=== PATIENT | female | born 1990 | race African-American/Black ===

== ENCOUNTER 2016-11-29 22:31 | Inpatient (IN) | payer MEDICAID ==
[2016-11-29 23:24] LABS: APPEARANCE,URINE SLIGHTLY-CLOUDY; BILIRUBIN,URINE NEGATIVE (NEGATIVE); GLUCOSE, URINE NEGATIVE (NEGATIVE); KETONES,URINE TRACE mg/dL (NEGATIVE); LEUKOCYTE ESTERASE,URINE NEGATIVE (NEGATIVE); NITRITE,URINE NEGATIVE (NEGATIVE); PROTEIN,URINE 30 mg/dL (NEGATIVE); URINE SPECIFIC GRAVITY 1.031
[2016-11-29 23:29] LABS: ABSOLUTE LYMPHOCYTES (AUTO) 1.9 10^3/uL (0.5-4.7); ABSOLUTE MONOCYTES (AUTO) 0.9 10^3/uL (0.1-1.4); ABSOLUTE NEUT (AUTO) 5.1 10^3/uL (1.7-8.2); BASOPHILS % (AUTO) 0.4 % (0-2); EOSINOPHILS % (AUTO) 0.5 % (0-6); HEMATOCRIT 33.3 % (36.0-47.0); HEMOGLOBIN 11.1 g/dL (12.0-15.5); MEAN CORPUSCULAR HEMOGLOBIN 26.7 pg (27.0-33.4); MEAN CORPUSCULAR HGB CONC 33.4 g/dL (32.0-36.0); MEAN CORPUSCULAR VOLUME 80 fl (80-97); MONOCYTES % (AUTO) 11.2 % (3-13); RED BLOOD COUNT 4.17 10^6/uL (3.72-5.28); RED CELL DISTRIBUTION WIDTH 15.8 % (11.5-14.0); SEGMENTED NEUTROPHILS % (AUTO) 63.9 % (42-78); WHITE BLOOD COUNT 8.1 10^3/uL (4.0-10.5)
[2016-11-29 23:49] LABS: URINE BARBITURATES SCREEN NEGATIVE; URINE METHADONE SCREEN NEGATIVE; URINE PHENCYCLIDINE SCREEN NEGATIVE
[2016-11-29] MEDS ORDERED: DINOPROSTONE 10 MG VAGINAL INSERT.SR ONE (23:58)
--- NOTE | 2016-11-30 04:46 | L&D General Admission ---
General Admit Datetime Report Generated by CPN: 11/30/2016 04:45 INFORMATION Patient Age: 26 (06/28/2016 18:07:QS system process) EDC: 12/04/2016 00:00 (11/17/2016 13:01:Sandrine Gale RN) : 8 (11/17/2016 13:01:Iraida Sarabia RN) Para: 2 (11/17/2016 13:01:Sandrine Gale RN) Term: 2 (11/17/2016 13:01:Iraida Sarabia RN) : 0 (11/17/2016 13:01:Iraida Sarabia RN) Spontaneous Abortions: 3 (11/17/2016 13:01:Iraida Sarabia RN) Induced Abortions: 2 (11/17/2016 13:01:Iraida Sarabia RN) Livin (11/17/2016 13:01:Iraida Sarabia RN) Cesareans: 0 (11/17/2016 13:01:Iraida Sarabia RN) VBACs: 0 (11/17/2016 13:01:Iraida Sarabia RN) Ectopic: 0 (11/17/2016 13:01:Iraida Sarabia RN) Multiple Births: 0 (11/17/2016 13:01:Iraida Sarabia RN) Baby, Number in Womb: 1 (11/17/2016 16:12:Sandrine Gale RN) CARE Primary Dehairing Machine Tender: [facility] (11/17/2016 13:01:Sandrine Gale RN) Adequate Care: No (11/17/2016 13:01:Iraida aSrabia RN) Prepregnancy Weight (lb): 132 (11/17/2016 13:01:Iraida Sarabia RN) Prepregnancy Weight (kg): 60.0 (11/17/2016 13:01:QS system process) Height (in): 60 (06/28/2016 18:07:QS system process) ALLERGIES Medication Allergy: No (11/17/2016 13:01:Sandrine Gale RN) Medication Allergies: No Known Allergies (11/17/2016) (11/17/2016 16:18:QS system process) Medication Allergies: No Known Allergies (01/05/2014) (06/28/2016 18:07:QS system process) Latex Allergy: No Latex Allergies (11/17/2016 13:01:Sandrine Gale RN) Food Allergies: n/a (11/17/2016 13:01:Sandrine Gale RN) Environmental Allergies: n/a (11/17/2016 13:01:Sandrine Gale RN) COMMUNICATION Primary Language: Indonesian (11/17/2016 13:01:Sandrine Gale RN) Medical Tx Preferred Language: Indonesian (11/17/2016 13:01:Sandrine Gale RN) Communication Barrier(s): None (11/17/2016 13:01:Iraida Sarabia RN) DEMOGRAPHICS Address: [address], [address] [address] (07/12/2016 12:07:QS system process) Address: [address] [place] [address] (06/28/2016 18:07:QS system process) Zipcode: [address] (06/28/2016 18:07:QS system process) Home (07/12/2016 12:07:QS system process) Home (06/28/2016 18:07:QS system process) Work (07/12/2016 12:07:QS system process) SSN: [id number] (06/28/2016 18:07:QS system process) Next of Kin Name: VANESSA CONNOR (07/12/2016 12:07:QS system process) Next of Kin Name: VANESSA NG (06/28/2016 18:07:QS system process) Next of Kin (06/28/2016 18:07:QS system process) Next of Kin Relationship: OR (06/28/2016 18:07:QS system process) Date of : 1990 (06/28/2016 18:07:QS system process) Marital Status: Single (06/28/2016 18:07:QS system process) Sex: Female (06/28/2016 18:07:QS system process) Race: (06/28/2016 18:07:QS system process) Ethnicity: Non- or (06/28/2016 18:07:QS system process) Yazdanism: None (06/28/2016 18:07:QS system process) FOB Involved: Yes (11/17/2016 13:01:Dolly Horta RN) DRUG AND ALCOHOL USE Alcohol: No (11/17/2016 13:01:Sandrine Gale RN) Cigarettes: Never Smoker. [id number] (11/17/2016 13:01:Sandrine Gale RN) Marijuana: No (11/17/2016 13:01:Sandrine Gale RN) Cocaine: No (11/17/2016 13:01:Sandrine Gale RN) Other Illicit Drugs: No (11/17/2016 13:01:Sandrine Gale RN) Customer Care Specialist: [facility] (11/17/2016 13:01:Sandrine Gale RN) Feeding Preference: Both (11/17/2016 13:01:Sandrine Gale RN) Benefit of Breast Feed Discussed: Yes (11/17/2016 13:01:Sandrine Gale RN) Circumcision: Yes (11/17/2016 13:01:Sandrine Gale RN) Classes Attended: No (11/17/2016 13:01:Sandrine Gale RN) Tubal Ligation: No (11/17/2016 13:01:Sandrine Gale RN) Tubal Authorization Signed: N/A (11/17/2016 13:01:Sandrine Gale RN) Consent: N/A (11/17/2016 13:01:Sandrine Gale RN) Consent Signed: N/A (11/17/2016 13:01:Sandrine Gale RN) Pain Management Plans: Epidural (11/17/2016 13:01:Sandrine Gale RN) Plans for Labor and Delivery: None (11/17/2016 13:01:Sandrine Gale RN) Support Person: Vanessa Connor (11/17/2016 13:01:Sandrine Gale RN) Support Person Relationship: Friend (11/17/2016 13:01:Sandrine Gale RN) Cultural/Spritual Practice: No (11/17/2016 13:01:Sandrine Gale RN) Spir/Cult Dietary Needs: No (11/17/2016 13:01:Sandrine Gale RN) LIVING SITUATION/DISCHARGE PLAN Living Arrangements: Apartment (11/17/2016 13:01:Sandrine Gale RN) Adequate Access to:: Electric; Heat; Refrigeration; Plumbing/Running water; Phone; Transportation (11/17/2016 13:01:Sandrine Gale RN) WIC Program: Needs referral (11/17/2016 13:01:Sandrine Gale RN) Currently Using Commun Resources: Katheryn (11/17/2016 13:01:Sandrine Gale RN) Outside Agency/Material Damage Appraiser: Katheryn (11/17/2016 13:01:Sandrine Gale RN) Car Seat for Discharge: Katheryn (11/17/2016 13:01:Sandrine Gale RN) Adoption Requested: Katheryn (11/17/2016 13:01:Sandirne Gale RN) Pt Contact w/ Post : N/A (11/17/2016 13:01:Sandrine Gale RN) LABS Blood Type: A Positive (11/17/2016 13:01:Iraida Sarabia RN) Antibody Screen: Negative (11/17/2016 13:01:Iraida Sarabia RN) Rho(G) this : Not Applicable (11/17/2016 13:01:Iraida Sarabia RN) Hemoglobin: 11.1 L (11/29/2016 23:10:QS system process) Hemoglobin: 11.0 L (06/28/2016 18:55:QS system process) Hematocrit: 33.3 L (11/29/2016 23:10:QS system process) Hematocrit: 33.9 L (06/28/2016 18:55:QS system process) MCV: 80 (11/29/2016 23:10:QS system process) MCV: 89 (06/28/2016 18:55:QS system process) Group Beta Strep: Negative (11/17/2016 13:01:Iraida Sarabia RN) Gonorrhea: Negative (11/17/2016 13:01:Iraida Sarabia RN) Chlamydia: Negative (11/17/2016 13:01:Iraida Sarabia RN) RPR/VDRL: Nonreactive (11/17/2016 13:01:Iraida Sarabia RN) HIV Results: Negative (11/17/2016 13:01:Iraida Sarabia RN) Hepatitis B: Negative (11/17/2016 13:01:Iraida Sarabia RN) Rubella: Immune (11/17/2016 13:01:Iraida Sarabia RN) OB/PREVIOUS HISTORY Previous Procedures: Ultrasound; NST (11/17/2016 13:01:Sandrine Gale RN) Current Procedures: Ultrasound; NST (11/17/2016 13:01:Sandrine Gale RN) History of Previous : No (11/17/2016 13:01:Sandrine Gale RN) History of Gestational Diabetes: No (11/17/2016 13:01:Sandrine Gale RN) History of PIH: No (11/17/2016 13:01:Sandrine Gale RN) History of Incompetent Cervix: No (11/17/2016 13:01:Sandrine Gale RN) History of Placenta Previa/Abrup: No (11/17/2016 13:01:Sandrine Gale RN) History of Macrosomia: No (11/17/2016 13:01:Sandrine Gale RN) History of IUGR: No (11/17/2016 13:01:Sandrine Gale RN) History of Hemorrhage: No (11/17/2016 13:01:Sandrine Gale RN) History of Loss/Stillborn: No (11/17/2016 13:01:Sandrine Gale RN) History of : No (11/17/2016 13:01:Sandrine Gale RN) History of D (Rh) Sensitization: No (11/17/2016 13:01:Sandrine Gale RN) History Recurrent Loss/Stillborn: No (11/17/2016 13:01:Sandrine Gale RN) History Depression/PP Depression: No (11/17/2016 13:01:Sandrine Gale RN) History of Uterine Anomaly/BOSTON: No (11/17/2016 13:01:Sandrine Gale RN) History of Infertility: No (11/17/2016 13:01:Sandrine Gale RN) History of ART Treatment: No (11/17/2016 13:01:Sandrine Gale RN) History of BOSTON: No (11/17/2016 13:01:Sandrine Gale RN) Comments Obstetrical History: G1-EAB in 2002 G2-EAB in 2003 G3- in 2005 female @ 39wks 7lbs 13 oz G4-SAB in 2007 G5-SAB in 2009 G6-SAB in 2009 G7- in 2013 male @ 38wks 7lbs 11 oz G8-Current (11/17/2016 13:01:Iraida Sarabia RN) MEDICAL HISTORY Med Hx Diabetes: Yes (11/17/2016 13:01:Iraida Sarabia RN) Diabetes Type: Gestational Diabetes (11/17/2016 13:01:Iraida Sarabia RN) Med Hx Hypertension: No (11/17/2016 13:01:Sandrine Gale RN) Med Hx Heart Disease: No (11/17/2016 13:01:Sandrine Gale RN) Med Hx Autoimmune Disorder: No (11/17/2016 13:01:Sandrine Gale RN) Med Hx Kidney Disease/UTI: No (11/17/2016 13:01:Sandrine Gale RN) Med Hx Neurologic/Epilepsy: No (11/17/2016 13:01:Sandrine Gale RN) Med Hx Psychiatric Disorders: No (11/17/2016 13:01:Sandrine Gale RN) Med Hx Hepatitis/Liver Disease: No (11/17/2016 13:01:Sandrine Gale RN) Med Hx Varicosities/Phlebitis: No (11/17/2016 13:01:Sandrine Gale RN) Med Hx Thyroid Dysfunction: No (11/17/2016 13:01:Sandrine Gale RN) Med Hx Trauma/Violence: No (11/17/2016 13:01:Sandrine Gale RN) Med Hx Blood Transfusion: No (11/17/2016 13:01:Sandrine Gale RN) Med Hx Pulmonary (Asthma,TB): No (11/17/2016 13:01:Sandrine Gale RN) Med Hx Breast: No (11/17/2016 13:01:Sandrine Gale RN) Med Hx BIOMETRICS HEAD Surgery: No (11/17/2016 13:01:Sandrine Gale RN) Med Hx Hospitalization/Surgery: Yes (11/17/2016 13:01:Sandrine Gale RN) Med Hx Anesthetic Complications: No (11/17/2016 13:01:Sandrine Gale RN) Med Hx Abnormal Pap Smear: No (11/17/2016 13:01:Sandrine Gale RN) Other Medical Diseases: No (11/17/2016 13:01:Sandrine Gale RN) Med Hx Significant Family Hx: No (11/17/2016 13:01:Sandrine Gale RN) Details of Med/Surg Hx: Childbirth, GDM (11/17/2016 13:01:Iraida Sarabia RN) INFECTIOUS HISTORY Inf Hx Gonorrhea: No (11/17/2016 13:01:Sandrine Gale RN) Inf Hx Chlamydia: Yes (11/17/2016 13:01:Sandrine Gale RN) Inf Hx Syphilis: No (11/17/2016 13:01:Sandrine Gale RN) Inf Hx HIV/AIDS: No (11/17/2016 13:01:Sandrine Gale RN) Inf Hx Human Papilloma Virus: No (11/17/2016 13:01:Sandrine Gale RN) Inf Hx Pt/Partner Genital Herpes: No (11/17/2016 13:01:Sandrine Gale RN) Inf Hx Tuberculosis/Exposure: No (11/17/2016 13:01:Sandrine Gale RN) Inf Hx Hepatitis B,C: No (11/17/2016 13:01:Sandrine Gale RN) Inf Hx Rash or Viral Illness: No (11/17/2016 13:01:Sandrine Gale RN) Details of Infectious Hx: chlamydia 2004 (11/17/2016 13:01:Sandrine Gale RN) GENETIC HISTORY Gen Hx Age >=35 at HERMILA: No (11/17/2016 13:01:Sandrine Gale RN) Gen Hx Thalassemia: No (11/17/2016 13:01:Sandrine Gale RN) Gen Hx Congenital Heart Defect: No (11/17/2016 13:01:Sandrine Gale RN) Gen Hx Neural Tube Defect: No (11/17/2016 13:01:Sandrine Gale RN) Gen Hx Down's Syndrome: No (11/17/2016 13:01:Sandrine Gale RN) Gen Hx Darius-Sachs: No (11/17/2016 13:01:Sandrine Gale RN) Gen Hx Vidal: No (11/17/2016 13:01:Sandrine Gale RN) Gen Hx Familial Dysautonomia: No (11/17/2016 13:01:Sandrine Gale RN) Gen Hx Sickle Cell Disease/Trait: No (11/17/2016 13:01:Sandrine Gale RN) Gen Hx Hemophilia/Blood Disorder: No (11/17/2016 13:01:Sandrine Gale RN) Gen Hx Muscular Dystrophy: No (11/17/2016 13:01:Sandrine Gale RN) Gen Hx Cystic Fibrosis: No (11/17/2016 13:01:Sandrine Gale RN) Gen Hx Huntingtons Chorea: No (11/17/2016 13:01:Sandrine Gale RN) Gen Hx Mental Retardation/Autism: No (11/17/2016 13:01:Sandrine Gale RN) Gen Hx Tested for Fragile X: No (11/17/2016 13:01:Sandrine Gale RN) Gen Hx Other Inher/Chromosomal: No (11/17/2016 13:01:Sandrine Gale RN) Gen Hx Maternal Metabolic DO: No (11/17/2016 13:01:Sandrine Gale RN) Gen Hx Pt Father or FOB Defect: No (11/17/2016 13:01:Sandrine Gale RN) Gen Hx Other Genetic History: No (11/17/2016 13:01:Sandrine Gale RN) Gen Hx Drugs/Meds since LMP: No (11/17/2016 13:01:Sandrine Gale RN)
--- NOTE | 2016-11-30 04:46 | L&D Admission Assessment ---
LD ADM ASMT Datetime Report Generated by CPN: 11/30/2016 04:45 PATIENT ASSESSMENT Assessment Type: Admission Assessment (11/29/2016 23:11:Dolly Mendesmarseilles, RN) WEIGHT Weight (lb): 163 (11/29/2016 23:55:QS system process) Weight (kg): 74.1 (11/29/2016 23:55:QS system process) Total Wt Gain (lb): 31 (11/29/2016 23:55:QS system process) Wt Gain (kg): 14.0 (11/29/2016 23:55:QS system process) BMI: 31.8 (11/29/2016 23:55:QS system process) PAIN Pain Scale: 0 (11/29/2016 23:11:Dolly Ledgerwood, RN) Pain Presence: None/Denies (11/29/2016 23:11:Dolly Ledgerwood, RN) Pain Type: N/A (11/29/2016 23:11:Dolly Ledgerwood, RN) CONTRACTIONS Frequency (min): 4.5-5.5 (11/30/2016 04:00:Dolly Ledgerwood, RN) Frequency (min): 4.5-5.5 (11/30/2016 03:30:Dolly Ledgerwood, RN) Frequency (min): irreg (11/30/2016 03:00:Dolly Jessicagerwood, RN) Frequency (min): irreg (11/30/2016 02:30:Dollytwila Lopezgerkarlos, RN) Frequency (min): x1 (11/30/2016 02:00:Dolly Ledgerwood, RN) Frequency (min): occas (11/30/2016 01:30:Dolly Ledgerwood, RN) Frequency (min): x1 (11/30/2016 01:00:Dolly Ledgerwood, RN) Frequency (min): occas (11/30/2016 00:30:Dolly Ledgerwood, RN) Frequency (min): occa (11/30/2016 00:00:Dolly Ledgerwood, RN) Frequency (min): x1 (11/29/2016 23:30:Dolly Ledgerwood, RN) Frequency (min): none (11/29/2016 23:00:Dolly Ledgerwood, RN) Duration (sec): 60-110 (11/30/2016 04:00:Dolly Ledgerwood, RN) Duration (sec): 60-100 (11/30/2016 03:30:Dolly Ledgerwood, RN) Duration (sec): 70-110 (11/30/2016 03:00:Dolly Ledgerwood, RN) Duration (sec): 80-130 (11/30/2016 02:30:Dolly Ledgerwood, RN) Duration (sec): 120 (11/30/2016 02:00:Dolly Ledgerwood, RN) Duration (sec): 80 (11/30/2016 01:30:Dolly Ledgerwood, RN) Duration (sec): 110 (11/30/2016 01:00:Dolly Ledgerwood, RN) Duration (sec): 70-80 (11/30/2016 00:30:Dolly Ledgerwood, RN) Duration (sec): 70-90 (11/30/2016 00:00:Dolly Ledgerwood, RN) Duration (sec): 100 (11/29/2016 23:30:Dolly Ledgerwood, RN) Quality: Mild (11/30/2016 04:00:Dolly Ledgerwood, RN) Quality: Mild (11/30/2016 03:30:Dolly Ledgerwood, RN) Quality: Mild (11/30/2016 03:00:Dolly Ledgerwood, RN) Quality: Mild (11/30/2016 02:30:Dolly Ledgerwood, RN) Quality: Mild (11/30/2016 02:00:Dolly Ledgerwood, RN) Quality: Mild (11/30/2016 01:30:Dolly Ledgerwood, RN) Quality: Mild (11/30/2016 01:00:Dolly Ledgerwood, RN) Quality: Mild (11/30/2016 00:30:Dolly Ledgerwood, RN) Quality: Mild (11/30/2016 00:00:Dolly Ledgerwood, RN) Quality: Mild (11/29/2016 23:30:Dolly Ledgerwood, RN) Pattern: Normal: <= 5 Contractions in 10 Minutes (11/30/2016 04:00:Dolly Ledgerwood, RN) Pattern: Normal: <= 5 Contractions in 10 Minutes (11/30/2016 03:30:Dolly Ledgerwood, RN) Pattern: Normal: <= 5 Contractions in 10 Minutes (11/30/2016 03:00:Dolly Ledgerwood, RN) Pattern: Normal: <= 5 Contractions in 10 Minutes (11/30/2016 02:30:Dolly Ledgerwood, RN) Pattern: Normal: <= 5 Contractions in 10 Minutes (11/30/2016 01:30:Dolly Ledgerwood, RN) Pattern: Normal: <= 5 Contractions in 10 Minutes (11/30/2016 00:30:Dolly Ledgerwood, RN) Pattern: Normal: <= 5 Contractions in 10 Minutes (11/30/2016 00:00:Dolly Ledgerwood, RN) Resting Tone [place]: Relaxed (11/30/2016 04:00:Dolly Ledgerwood, RN) Resting Tone [place]: Relaxed (11/30/2016 03:30:Dolly Ledgerwood, RN) Resting Tone [place]: Relaxed (11/30/2016 03:00:Dolly Ledgerwood, RN) Resting Tone [place]: Relaxed (11/30/2016 02:30:Dolly Ledgerwood, RN) Resting Tone [place]: Relaxed (11/30/2016 02:00:Dolly Ledgerwood, RN) Resting Tone [place]: Relaxed (11/30/2016 01:30:Dolly Ledgerwood, RN) Resting Tone [place]: Relaxed (11/30/2016 01:00:Dolly Ledgerwood, RN) Resting Tone [place]: Relaxed (11/30/2016 00:30:Dolly Ledgerwood, RN) Resting Tone [place]: Relaxed (11/30/2016 00:00:Dolly Horta RN) Resting Tone [place]: Non Relaxed (11/29/2016 23:30:Dolly Horta RN) Resting Tone [place]: Relaxed (11/29/2016 23:00:Dolly Horta RN) Contraction Comments: occasional contractions with uteral irritability. (11/30/2016 00:30:Dolly Horta RN) Contraction Comments: pt feels no contractions (11/29/2016 23:00:Dolly Horta RN) VAGINAL EXAM Dilatation (cm): 0.5 (11/30/2016 00:00:Dolly Horta RN) Effacement (%): 50 (11/30/2016 00:00:Dolly Horta RN) Station: -3 (11/30/2016 00:00:Dolly Horta RN) NEURO Level of Consciousness: Fully Conscious (11/29/2016 23:11:Dolly Horta RN) DTR's/Clonus: DTRs 2+; No Clonus (11/29/2016 23:11:Dolly Horta, KSENIA) Headache: Denies (11/29/2016 23:11:Dolly Horta RN) Dizziness: No (11/29/2016 23:11:Dolly Horta RN) Blurred Vision: No (11/29/2016 23:11:Dolly Horta, RN) Extremity Numbness/Tingling : None (11/29/2016 23:11:Dolly Horta RN) Extremity Movement: Full Range of Motion (11/29/2016 23:11:Dolly Horta, RN) CARDIOVASCULAR Nailbeds: [place] (11/29/2016 23:11:Dolly Horta RN) Capillary Refill: Less than 3 Seconds (11/29/2016 23:11:Dolly Horta, RN) Facial Edema: None (11/29/2016 23:11:Dolly Horta, RN) Navarro's Sign Left Leg: Negative (11/29/2016 23:11:Dolly Horta, RN) Navarro's Sign Right Leg: Negative (11/29/2016 23:11:Dolly Horta, RN) RESPIRATORY Respiratory Effort: Unlabored; Regular Rhythm; Equal Expansion (11/29/2016 23:11:Dolly Ledgerwood, RN) Breath Sounds, Left: Clear and Equal (11/29/2016 23:11:Dolly Ledgerwood, RN) Breath Sounds, Right: Clear and Equal (11/29/2016 23:11:Dolly Ledgerwood, RN) Cough Productivity: None (11/29/2016 23:11:Dolly Ledgerwood, RN) GASTROINTESTINAL Nausea/Vomiting: Denies (11/29/2016 23:11:Dolly Horta, KSENIA) Bowel Sounds: Normoactive; All Quadrants (11/29/2016 23:11:Dolly Horta, RN) RUQ Epigastric Pain: Denies (11/29/2016 23:11:Dolly Horta, RN) Bowel Patterns: Soft, Formed Stool (11/29/2016 23:11:Dolly Horta, RN) Hemorrhoids: None (11/29/2016 23:11:Dolly Horta, RN) Diet Type: Regular diet (11/29/2016 23:11:Dolly Hrota, RN) Last Meal: 11/29/2016 22:30 (11/29/2016 23:11:Dolly Ledgerwood, RN) GENITOURINARY Bladder: Nondistended (11/29/2016 23:11:Dolly Ledgerwood, RN) Frequency of Urination: No (11/29/2016 23:11:Dolly Ledgerwood, RN) Urination Burning: No (11/29/2016 23:11:Dolly Ledgerwood, RN) CVA Tenderness: No (11/29/2016 23:11:Dolly Ledgerwood, RN) Vaginal Bleeding: None (11/29/2016 23:11:Dolly Ledgermarseilles, RN) Vaginal Discharge Color: N/A (11/29/2016 23:11:Dolly Jessicagermarseilles, RN) INTEGUMENTARY Skin Color: Normal for Race (11/29/2016 23:11:Dolly Jessicagerwood, ) Skin Temperature: Warm (11/29/2016 23:11:Dolly Jessicagerwood, RN) Skin Moisture: Dry (11/29/2016 23:11:Dolly Ledgerwood, RN) KYLIE SKIN ASSESSMENT Kylie Scale Sensory Perception: No Impairment- Responds to verbal commands. Has no sensory deficit which would limit ability to feel or voice pain or discomfort (11/29/2016 23:11:Dolly Horta RN) Kylie Scale Moisture: Rarely Moist- Skin is usually dry. Linen only requires changing at routine intervals (11/29/2016 23:11:Dolly Horta RN) Kylie Scale Activity: Walks Frequently- Walks outside the room at least twice a day and inside room at least every 2 hours during the day. (11/29/2016 23:11:Dolly Horta RN) Kylie Scale Mobility: No Limitations- Makes major and frequent changes in position without assistance (11/29/2016 23:11:Dolly Horta RN) Kylie Scale Nutrition: Excellent- Eats most of every meal. Never refuses a meal. Usually eats a total of 4 or more servings of meat and dairy products. Occasionally eats between meals. Does not require supplementation (11/29/2016 23:11:Dolly Horta RN) Kylie Scale Friction and Shear: No Apparent Problem- Moves in bed and in chair independently and has sufficient muscle strength to lift up completely during move. Maintains good position in bed or chair at all times (11/29/2016 23:11:Dolly Horta RN) Kylie Scale Total: 23 (11/29/2016 23:11:QS system process) Kylie Scale Risk: No Risk of Pressure Ulcer Noted at this Time (11/29/2016 23:11:QS system process) SUPPORT Family Support: Family supportive (11/29/2016 23:11:Dolly Horta RN) Emotional State: Calm/Relaxed (11/29/2016 23:11:Dolly Horta RN) SAFETY Call [place] Within Reach: Yes (11/29/2016 23:11:Dolly Horta RN) Side Rails Up: Yes (11/29/2016 23:11:Dolly Horta RN) Bed Wheels Locked: Yes (11/29/2016 23:11:Dolly Horta RN) Arm Bands Present: Yes (11/29/2016 23:11:Dolly Horta RN) FALL SCREEN Fall Risk History of Falling: (0) No (11/29/2016 23:11:Dolly Horta RN) Fall Risk Secondary Diagnosis: (0) No (11/29/2016 23:11:Dolly Horta RN) Fall Risk Ambulatory Aid: (0) None/Bedrest/Wheelchair/Nurse Assist (11/29/2016 23:11:Dolly Horta RN) Fall Risk IV Therapy: (0) No (11/29/2016 23:11:Dolly Horta RN) Fall Risk Gait: (0) Normal/Bedrest/Immobile (11/29/2016 23:11:Dolly Horta RN) Fall Risk Mental Status: (0) Oriented to Own Ability (11/29/2016 23:11:Dolly Horta RN) Fall Risk Score: 0 (11/29/2016 23:11:QS system process) Fall Risk Score Definition: No Risk: No action required (11/29/2016 23:11:QS system process) RECENT TRAVEL/INFECTIOUS DISEASE Pt/Family Education: Handwashing Hygiene (11/29/2016 23:11:Dolly Horta RN) BABY A FHR Baseline Rate (bpm) Baby A: 145 (11/30/2016 04:00:Dolly Horta RN) FHR Baseline Rate (bpm) Baby A: 140 (11/30/2016 03:30:Dolly Horta RN) FHR Baseline Rate (bpm) Baby A: 145 (11/30/2016 03:00:Dolly Horta RN) FHR Baseline Rate (bpm) Baby A: 150 (11/30/2016 02:30:Dolly Horta RN) FHR Baseline Rate (bpm) Baby A: 145 (11/30/2016 02:00:Dolly Horta RN) FHR Baseline Rate (bpm) Baby A: 145 (11/30/2016 01:30:Dolly Horta RN) FHR Baseline Rate (bpm) Baby A: 150 (11/30/2016 01:00:Dolly Horta RN) FHR Baseline Rate (bpm) Baby A: 155 (11/30/2016 00:30:Dolly Horta RN) FHR Baseline Rate (bpm) Baby A: 155 (11/30/2016 00:00:Dolly Horta RN) FHR Baseline Rate (bpm) Baby A: 150 (11/29/2016 23:30:Dolly Horta RN) FHR Baseline Rate (bpm) Baby A: 145 (11/29/2016 23:00:Dolly Horta RN) Variability Baby A: Moderate 6-25 bpm (11/30/2016 04:00:Dolly Horta RN) Variability Baby A: Moderate 6-25 bpm (11/30/2016 03:30:Dolly Horta RN) Variability Baby A: Moderate 6-25 bpm (11/30/2016 03:00:Dolly Horta RN) Variability Baby A: Moderate 6-25 bpm (11/30/2016 02:30:Dolly Horta RN) Variability Baby A: Moderate 6-25 bpm (11/30/2016 02:00:Dolly Horta RN) Variability Baby A: Moderate 6-25 bpm (11/30/2016 01:30:Dolly Horta RN) Variability Baby A: Moderate 6-25 bpm (11/30/2016 01:00:Dolly Horta RN) Variability Baby A: Moderate 6-25 bpm (11/30/2016 00:30:Dolly Horta RN) Variability Baby A: Moderate 6-25 bpm (11/30/2016 00:00:Dolly Horta RN) Variability Baby A: Moderate 6-25 bpm (11/29/2016 23:30:Dolly Horta RN) Variability Baby A: Moderate 6-25 bpm (11/29/2016 23:00:Dolly Horta, RN) Accelerations Baby A: 10X10 (11/30/2016 04:00:Dolly Horta RN) Accelerations Baby A: 15X15 (11/30/2016 03:30:Dolly Horta RN) Accelerations Baby A: 10X10 (11/30/2016 03:00:Dolly Horta RN) Accelerations Baby A: 15X15 (11/30/2016 02:30:Dolly Horta RN) Accelerations Baby A: 10X10 (11/30/2016 02:00:Dolly Horta RN) Accelerations Baby A: 15X15 (11/30/2016 01:30:Dolly Horta RN) Accelerations Baby A: 15X15 (11/30/2016 01:00:Dolly Horta RN) Accelerations Baby A: 15X15 (11/30/2016 00:30:Dolly Horta RN) Accelerations Baby A: 15X15 (11/30/2016 00:00:Dolly Horta RN) Accelerations Baby A: 10X10 (11/29/2016 23:30:Dolly Horta RN) Accelerations Baby A: None (11/29/2016 23:00:Dolly Horta RN) Decelerations Baby A: None (11/30/2016 04:00:Dolly Horta RN) Decelerations Baby A: None (11/30/2016 03:30:Dolly Horta RN) Decelerations Baby A: None (11/30/2016 03:00:Dolly Horta RN) Decelerations Baby A: None (11/30/2016 02:30:Dolly Horta RN) Decelerations Baby A: None (11/30/2016 01:00:Dolly Horta RN) Decelerations Baby A: None (11/30/2016 00:30:Dolly Horta RN) Decelerations Baby A: None (11/30/2016 00:00:Dolly Horta RN) Decelerations Baby A: None (11/29/2016 23:30:Dolly Horta RN) Decelerations Baby A: None (11/29/2016 23:00:Dolly Hotra RN) ADDITIONAL COMMENTS Assessment Flag: Admission Assessment (11/29/2016 23:11:QS system process)
--- NOTE | 2016-11-30 04:46 | L&D Flow Sheet ---
LD Flowsheet Datetime Report Generated by CPN: 11/30/2016 04:45 Datetime: 11/30/2016 04:27 NBP Sys/Samia/Mean (mmHg): 122 (QS system process) : 62 (QS system process) : 87 (QS system process) Pulse: 65 (QS system process) LaborFlag: Antepartum (QS system process) Datetime: 11/30/2016 04:00 Monitor Mode: External; Palpation (Dolly Horta RN) Frequency (min): 4.5-5.5 (Dolly Ledgerwood, RN) Quality: Mild (Dolly Ledgerwood, RN) Duration (sec): 60-110 (Dolly Ledgerwood, RN) Duration Criteria: Less than Two 120 Second Contractions (Dolly Ledgerwood, RN) Pattern: Normal: <= 5 Contractions in 10 Minutes (Dolly Ledgerwood, RN) Resting Tone (Palpate): Relaxed (Dolly Ledgerwood, RN) Monitor Mode: External US (Dolly Ledgerwood, RN) FHR Baseline Rate : 145 (Dolly Ledgerwood, RN) FHR Baseline Changes: No Baseline Change (Dolly Ledgerwood, RN) Variability: Moderate 6-25 bpm (Dolly Ledgerwood, RN) Accelerations: 10X10 (Dolly Ledgerwood, RN) Decelerations: None (Dolly Ledgerwood, RN) Datetime: 11/30/2016 03:56 NBP Sys/Samia/Mean (mmHg): 116 (QS system process) : 57 (QS system process) : 82 (QS system process) Pulse: 75 (QS system process) Respirations: 14 (Dolly Ledgerwood, RN) LaborFlag: Antepartum (QS system process) Datetime: 11/30/2016 03:30 Monitor Mode: External; Palpation (Dolly Ledgerwood, RN) Frequency (min): 4.5-5.5 (Dolly Ledgerwood, RN) Quality: Mild (Dolly Ledgerwood, RN) Duration (sec): 60-100 (Dolly Ledgerwood, RN) Duration Criteria: Less than Two 120 Second Contractions (Dolly Ledgerwood, RN) Pattern: Normal: <= 5 Contractions in 10 Minutes (Dolly Ledgerwood, RN) Resting Tone (Palpate): Relaxed (Dolly Ledgerwood, RN) Monitor Mode: External US (Dolly Ledgerwood, RN) FHR Baseline Rate : 140 (Dolly Ledgerwood, RN) FHR Baseline Changes: No Baseline Change (Dolly Ledgerwood, RN) Variability: Moderate 6-25 bpm (Dolly Ledgerwood, RN) Accelerations: 15X15 (Dolly Ledgerwood, RN) Decelerations: None (Dolly Ledgerwood, RN) Datetime: 11/30/2016 03:26 NBP Sys/Samia/Mean (mmHg): 126 (QS system process) : 63 (QS system process) : 89 (QS system process) Pulse: 63 (QS system process) LaborFlag: Antepartum (QS system process) Datetime: 11/30/2016 03:00 Monitor Mode: External; Palpation (Dolly Ledgerwood, RN) Frequency (min): irreg (Dolly Ledgerwood, RN) Quality: Mild (Dolly Ledgerwood, RN) Duration (sec): 70-110 (Dolly Ledgerwood, RN) Duration Criteria: Less than Two 120 Second Contractions (Dolly Ledgerwood, RN) Pattern: Normal: <= 5 Contractions in 10 Minutes (Dolly Ledgerwood, RN) Resting Tone (Palpate): Relaxed (Dolly Ledgerwood, RN) Monitor Mode: External US (Dolly Ledgerwood, RN) FHR Baseline Rate : 145 (Dolly Ledgerwood, RN) FHR Baseline Changes: No Baseline Change (Dolly Ledgerwood, RN) Variability: Moderate 6-25 bpm (Dolly Ledgerwood, RN) Accelerations: 10X10 (Dolly Ledgerwood, RN) Decelerations: None (Dolly Ledgerwood, RN) Datetime: 11/30/2016 02:56 NBP Sys/Samia/Mean (mmHg): 126 (QS system process) : 73 (QS system process) : 95 (QS system process) Pulse: 65 (QS system process) LaborFlag: Antepartum (QS system process) Datetime: 11/30/2016 02:32 Patient Position/Activity: High Fowlers (Dolly Ledgerwood, RN) Datetime: 11/30/2016 02:30 Monitor Mode: External; Palpation (Dolly Ledgerwood, RN) Frequency (min): irreg (Dolly Ledgerwood, RN) Quality: Mild (Dolly Ledgerwood, RN) Duration (sec): 80-130 (Dolly Ledgerwood, RN) Duration Criteria: Less than Two 120 Second Contractions (Dolly Ledgerwood, RN) Pattern: Normal: <= 5 Contractions in 10 Minutes (Dolly Ledgerwood, RN) Resting Tone (Palpate): Relaxed (Dolly Ledgerwood, RN) Monitor Mode: External US (Dolly Ledgerwood, RN) FHR Baseline Rate : 150 (Dolly Ledgerwood, RN) FHR Baseline Changes: No Baseline Change (Dolly Ledgerwood, RN) Variability: Moderate 6-25 bpm (Dolly Ledgerwood, RN) Accelerations: 15X15 (Dolly Ledgerwood, RN) Decelerations: None (Dolly Ledgerwood, RN) Datetime: 11/30/2016 02:26 NBP Sys/Samia/Mean (mmHg): 103 (QS system process) : 60 (QS system process) : 77 (QS system process) Pulse: 66 (QS system process) LaborFlag: Antepartum (QS system process) Datetime: 11/30/2016 02:20 Actions for Decelerations: Side to Side; IV Bolus; Provider Reviewed Strip (Dolly Horta, RN) Communication: RN at Bedside (Dolly Horta, RN) Datetime: 11/30/2016 02:19 Actions for Decelerations: IV Bolus (Dariana Zhu, RN) Datetime: 11/30/2016 02:00 Monitor Mode: External; Palpation (Dolly Ledgerwood, RN) Frequency (min): x1 (Dolly Ledgerwood, RN) Quality: Mild (Dolly Ledgerwood, RN) Duration (sec): 120 (Dolly Ledgerwood, RN) Duration Criteria: Less than Two 120 Second Contractions (Dolly Ledgerwood, RN) Resting Tone (Palpate): Relaxed (Dolly Ledgerwood, RN) Monitor Mode: External US (Dolly Ledgerwood, RN) FHR Baseline Rate : 145 (Dolly Ledgerwood, RN) FHR Baseline Changes: No Baseline Change (Dolly Ledgerwood, RN) Variability: Moderate 6-25 bpm (Dolly Ledgerwood, RN) Accelerations: 10X10 (Dolly Ledgerwood, RN) Comments: spontaneous deceleration (Dolly Ledgerwood, RN) Datetime: 11/30/2016 01:57 NBP Sys/Samia/Mean (mmHg): 120 (QS system process) : 66 (QS system process) : 85 (QS system process) Pulse: 74 (QS system process) Respirations: 14 (Dolly Horta RN) LaborFlag: Antepartum (QS system process) Datetime: 11/30/2016 01:44 Actions for Decelerations: Side to Side; Provider Reviewed Strip (Dolly Horta RN) Actions for Decelerations: Side to Side (Dolly Horta RN) Patient Position/Activity: Right Tilt (Dolly Horta RN) Communication: RN at Bedside (Dolly Horta RN) Datetime: 11/30/2016 01:30 Monitor Mode: External; Palpation (Dolly Horta RN) Frequency (min): occas (Dolly Horta RN) Quality: Mild (Dolly Horta RN) Duration (sec): 80 (Dolly Horta RN) Duration Criteria: Less than Two 120 Second Contractions (Dolly Horta RN) Pattern: Normal: <= 5 Contractions in 10 Minutes (Dolly Horta RN) Resting Tone (Palpate): Relaxed (Dolly Ledgerwood, RN) Monitor Mode: External US (Dolly Horta, RN) FHR Baseline Rate : 145 (Dolly Lopezgerkarlos, RN) FHR Baseline Changes: No Baseline Change (Dolly Lopezgerkarlos, RN) Variability: Moderate 6-25 bpm (Dolly Lopezgerwood, RN) Accelerations: 15X15 (Dolly Horta, RN) Comments: spontaneous deceleration (Dolly Horta, RN) Datetime: 11/30/2016 01:26 NBP Sys/Samia/Mean (mmHg): 101 (QS system process) : 53 (QS system process) : 72 (QS system process) Pulse: 68 (QS system process) LaborFlag: Antepartum (QS system process) Datetime: 11/30/2016 01:25 Actions for Decelerations: Provider Reviewed Strip (Dolly Horta, KSENIA) Communication: RN at Bedside (Dolly Horta RN) Datetime: 11/30/2016 01:00 Monitor Mode: External; Palpation (Dolly Ledgerwood, RN) Frequency (min): x1 (Dolly Ledgerwood, RN) Quality: Mild (Dolly Ledgerwood, RN) Duration (sec): 110 (Dolly Ledgerwood, RN) Duration Criteria: Less than Two 120 Second Contractions (Dolly Ledgerwood, RN) Resting Tone (Palpate): Relaxed (Dolly Ledgerwood, RN) Monitor Mode: External US (Dolly Ledgerwood, RN) FHR Baseline Rate : 150 (Dolly Ledgerwood, RN) FHR Baseline Changes: No Baseline Change (Dolly Ledgerwood, RN) Variability: Moderate 6-25 bpm (Dolly Ledgerwood, RN) Accelerations: 15X15 (Dolly Ledgerwood, RN) Decelerations: None (Dolly Ledgerwood, RN) Datetime: 11/30/2016 00:56 NBP Sys/Samia/Mean (mmHg): 108 (QS system process) : 58 (QS system process) : 78 (QS system process) Pulse: 76 (QS system process) Respirations: 14 (Dolly Ledgerwood, RN) LaborFlag: Antepartum (QS system process) Datetime: 11/30/2016 00:30 Monitor Mode: External; Palpation (Dolly Ledgerwood, RN) Frequency (min): occas (Dolly Ledgerwood, RN) Quality: Mild (Dolly Ledgerwood, RN) Duration (sec): 70-80 (Dolly Ledgerwood, RN) Duration Criteria: Less than Two 120 Second Contractions (Dolly Ledgerwood, RN) Pattern: Normal: <= 5 Contractions in 10 Minutes (Dolly Ledgerwood, RN) Resting Tone (Palpate): Relaxed (Dolly Ledgerwood, RN) Contraction Comments: occasional contractions with uteral irritability. (Dolly Ledgerwood, RN) Monitor Mode: External US (Dolly Ledgerwood, RN) FHR Baseline Rate : 155 (Dolly Ledgerwood, RN) FHR Baseline Changes: No Baseline Change (Dolly Ledgerwood, RN) Variability: Moderate 6-25 bpm (Dolly Ledgerwood, RN) Accelerations: 15X15 (Dolly Ledgerwood, RN) Decelerations: None (Dolly Ledgerwood, RN) Datetime: 11/30/2016 00:26 NBP Sys/Samia/Mean (mmHg): 98 (QS system process) : 54 (QS system process) : 71 (QS system process) Pulse: 75 (QS system process) LaborFlag: Antepartum (QS system process) Datetime: 11/30/2016 00:00 Monitor Mode: External; Palpation (Dolly Horta, RN) Frequency (min): occa (Dolly Horta, RN) Quality: Mild (Dolly Horta, RN) Duration (sec): 70-90 (Dolly Horta, RN) Duration Criteria: Less than Two 120 Second Contractions (Dolly Horta, RN) Pattern: Normal: <= 5 Contractions in 10 Minutes (Dolly Jessicagerkarlos, RN) Resting Tone (Palpate): Relaxed (Dolly Horta, RN) Monitor Mode: External US (Dolly Horta, RN) FHR Baseline Rate : 155 (Dolly Rula, RN) FHR Baseline Changes: No Baseline Change (Dolly Horta, RN) Variability: Moderate 6-25 bpm (Dolly Horta, RN) Accelerations: 15X15 (Dolly Ledgerwood, RN) Decelerations: None (Dolly Jessicagerwood, RN) Dilatation (cm): 0.5 (Dolly Jessicagerkarlos, RN) Effacement (%): 50 (Dolly Horta, RN) Station: -3 (Dolly Horta, RN) Exam by: Lindsay Horta RN (Dolly Horta, RN) Cervical Ripening Agents: Cervidil (Dolly Horta, RN) Datetime: 11/29/2016 23:56 NBP Sys/Samia/Mean (mmHg): 119 (QS system process) : 67 (QS system process) : 86 (QS system process) Pulse: 86 (QS system process) LaborFlag: Antepartum (QS system process) Datetime: 11/29/2016 23:40 Procedures: Consents Signed (Dolly Jessicagerwood, RN) Datetime: 11/29/2016 23:30 Monitor Mode: External; Palpation (Dollytwila Lopezgerwood, RN) Frequency (min): x1 (Dolly Horta, RN) Quality: Mild (Dolly Vaughnwood, RN) Duration (sec): 100 (Dolly Ledgerwood, RN) Duration Criteria: Less than Two 120 Second Contractions (Dolly Ledgerwood, RN) Resting Tone (Palpate): Non Relaxed (Dolly Ledgerwood, RN) Monitor Mode: External US (Dolly Ledgerwood, RN) FHR Baseline Rate : 150 (Dolly Ledgerwood, RN) FHR Baseline Changes: No Baseline Change (Dolly Ledgerwood, RN) Variability: Moderate 6-25 bpm (Dolly Ledgerwood, RN) Accelerations: 10X10 (Dolly Ledgerwood, RN) Decelerations: None (Dolly Ledgerwood, RN) Datetime: 11/29/2016 23:28 NBP Sys/Samia/Mean (mmHg): 116 (QS system process) : 66 (QS system process) : 84 (QS system process) Pulse: 89 (QS system process) Respirations: 15 (Dolly Ledgerwood, RN) LaborFlag: Antepartum (QS system process) Datetime: 11/29/2016 23:11 Pain Scale: 0 (Dolly Ledgerwood, RN) Pain Presence: None/Denies (Dolly Ledgerwood, RN) Pain Type: N/A (Dolly Horta RN) Level of Consciousness: Fully Conscious (Dolly Horta RN) DTR's/Clonus: DTRs 2+; No Clonus (Dolly Horta RN) Headache: Denies (Dolly Horta RN) Breath Sounds, Left: Clear and Equal (Dolly Horta RN) Breath Sounds, Right: Clear and Equal (Dolly Horta RN) Nausea/Vomiting: Denies (Dolly Horta RN) RUQ Epigastric Pain: Denies (Dolly Horta RN) Instructional Method: Demo; Verbal; Patient Instructed (Dolly Horta RN) Plan of Care: Plan of Care Discussed; Induction (Dolly Horta RN) Unit Routine: [place] to Room; Call [place]; Bed; Visiting Policy; Handwashing; Monitoring; Safety/Fall Risk Prevention; Bathroom Privileges (Dolly Horta RN) LaborFlag: Antepartum (QS system process) Datetime: 11/29/2016 23:08 Procedures: Labs Drawn (Dolly Horta, KSENIA) Datetime: 11/29/2016 23:07 IV/Blood Work: IV Started; New IV Bag Hung (Dolly Horta RN) Patient Position/Activity: Right Tilt (Dolly Horta RN) Patient Care Comments: 18 G Left Hand by Lindsay Horta RN (Dolly Horta, KSENIA) Datetime: 11/29/2016 23:06 Patient Position/Activity: Left Tilt (Dolly Horta, KSENIA) Datetime: 11/29/2016 23:00 Monitor Mode: External; Palpation (Dolly Horta RN) Frequency (min): none (Dolly Horta RN) Resting Tone (Palpate): Relaxed (Dolly Horta RN) Contraction Comments: pt feels no contractions (Dolly Horta RN) Monitor Mode: External US (Dolly Horta RN) FHR Baseline Rate : 145 (Dolly Horta RN) FHR Baseline Changes: No Baseline Change (Dolly Horta RN) Variability: Moderate 6-25 bpm (Dolly Horta RN) Accelerations: None (Dolly Horta RN) Decelerations: None (Dolly Horta RN) Datetime: 11/29/2016 22:56 NBP Sys/Samia/Mean (mmHg): 108 (QS system process) : 54 (QS system process) : 77 (QS system process) Pulse: 70 (QS system process) Respirations: 14 (Dolly Horta RN) LaborFlag: Antepartum (QS system process)
--- NOTE | 2016-11-30 04:46 | L&D Current Admission ---
Current Admit Datetime Report Generated by CPN: 11/30/2016 04:45 ADMISSION INFORMATION Current Admit Date/Time: 11/30/2016 00:09 (11/30/2016 00:09:Dolly Horta RN) Reason for Admission: Induction of Labor (11/30/2016 00:09:Dolly Horta RN) Chief Complaint: Scheduled Induction of Labor (11/30/2016 00:09:Dolly Horta RN) Chief Complaint: Scheduled Induction of Labor (11/29/2016 23:11:Dolly Horta RN) Chief Complaint: Contractions (11/17/2016 13:00:Sandrine Gale RN) EGA per Dates: 39.3 (11/30/2016 00:09:QS system process) Method of Arrival: Wheelchair (11/30/2016 00:09:Dolly Horta RN) Admitted From: Home (11/30/2016 00:09:Dolly Horta RN) Records Available: Yes (11/30/2016 00:09:Dolly Horta RN) General Admission Information: Reviewed (11/30/2016 00:09:Dolly Horta RN) BELONGINGS/ADVANCED DIRECTIVES Valuables/Personal Effects: None (11/30/2016 00:09:Dolly Horta RN) Other Belongings: see belonging consent (11/30/2016 00:09:Dolly Horta RN) Disposition of Belongings: Kept with Patient (11/30/2016 00:09:Dolly Horta RN) Durable Power of Erp Consultant: No (11/30/2016 00:09:Dolly Horta RN) Living Will: No (11/30/2016 00:09:Dolly Horta RN) Organ Donor: Yes (11/30/2016 00:09:Dolly Horta RN) Pt Rights Information Given: Yes (11/30/2016 00:09:Dolly Horta RN) Pt Understands Pt Rights: Yes (11/30/2016 00:09:Dolly Horta RN) LEARNING ASSESSMENT Knowledge Level: Understands L_D Process; Understands Care Activities; Had Pre-Hospital Education; Understands Diagnosis (11/30/2016 00:09:Dolly Horta RN) Barriers to Learning: None (11/30/2016 00:09:Dolly Horta RN) Learning Readiness: Motivated (11/30/2016 00:09:Dolly Horta RN) Learns Best By: 1 to 1 Instruction (11/30/2016 00:09:Dolly Horta RN) Learning Needs: Labor and Delivery Process; Pain Management; Symptoms to Report; Treatment Plan; Medication; Diagnosis; Nutrition; Equipment; Infant Care; Community Resources (11/30/2016 00:09:Dolly Horta RN) DOMESTIC VIOLANCE SCREENING Dom Viol Threatened/Hurt: No (11/30/2016 00:09:Dolly Horta RN) Hx of Abuse/Neglect past 2yrs: No (11/30/2016 00:09:Dolly Horta RN) Feel Unsafe Going Home: No (11/30/2016 00:09:Dolly Horta RN) Addt'l Observ Indicating Abuse: No (11/30/2016 00:09:Dolly Horta RN) Reason Unable to Complete Screen: N/A, Screen Completed (11/30/2016 00:09:Dolly Horta RN) Considered Personal Harm/Suicide: No (11/30/2016 00:09:Dolly Horta RN) NUTRITIONAL/FUNCTIONAL SCREENING Problem with Appetite >5 Days: No (11/30/2016 00:09:Dolly Horta RN) Chew/Swallow Difficulties: No (11/30/2016 00:09:Dolly Horta RN) Inappropriate Wt Gain/Loss: No (11/30/2016 00:09:Dolly Horta RN) Presence Skin Breakdown/Ulcer: No (11/30/2016 00:09:Dolly Horta RN) Special Diet: No (11/30/2016 00:09:Dolly Horta RN) Pt Requests Vinyl Dipper Visit: No (11/30/2016 00:09:Dolly Horta RN) Hx of Any of the Following?: N/A (11/30/2016 00:09:Dolly Horta RN) New Diagnosis of: N/A (11/30/2016 00:09:Dolly Horta RN) Requires Assist w/Ambulation: No (11/30/2016 00:09:Dolly Horta RN) Uses Assist Device to Ambulate: No (11/30/2016 00:09:Dolly Horta RN) Pt Requires Help w/ADL's: No (11/30/2016 00:09:Dolly Horta RN)
--- NOTE | 2016-11-30 06:15 | L&D Current Admission ---
Current Admit Datetime Report Generated by CPN: 11/30/2016 06:00 ADMISSION INFORMATION Current Admit Date/Time: 11/30/2016 00:09 (11/30/2016 00:09:Dolly Horta RN) Reason for Admission: Induction of Labor (11/30/2016 00:09:Dolly Horta RN) Chief Complaint: Scheduled Induction of Labor (11/30/2016 00:09:Dolyl Horta RN) EGA per Dates: 39.3 (11/30/2016 00:09:QS system process) Method of Arrival: Wheelchair (11/30/2016 00:09:Dolly Horta RN) Admitted From: Home (11/30/2016 00:09:Dolly Horta RN) Records Available: Yes (11/30/2016 00:09:Dolly Horta RN) General Admission Information: Reviewed (11/30/2016 00:09:Dolly Horta RN) BELONGINGS/ADVANCED DIRECTIVES Valuables/Personal Effects: None (11/30/2016 00:09:Dolly Horta RN) Other Belongings: see belonging consent (11/30/2016 00:09:Dolly Horta RN) Disposition of Belongings: Kept with Patient (11/30/2016 00:09:Dolly Horta RN) Durable Power of Cooling Room Attendant: No (11/30/2016 00:09:Dolly Horta RN) Living Will: No (11/30/2016 00:09:Dolly Horta RN) Organ Donor: Yes (11/30/2016 00:09:Dolly Horta RN) Pt Rights Information Given: Yes (11/30/2016 00:09:Dolly Horta RN) Pt Understands Pt Rights: Yes (11/30/2016 00:09:Dolly Horta RN) LEARNING ASSESSMENT Knowledge Level: Understands L_D Process; Understands Care Activities; Had Pre-Hospital Education; Understands Diagnosis (11/30/2016 00:09:Dolly Horta RN) Barriers to Learning: None (11/30/2016 00:09:Dolly Horta RN) Learning Readiness: Motivated (11/30/2016 00:09:Dolly Horta RN) Learns Best By: 1 to 1 Instruction (11/30/2016 00:09:Dloly Horta RN) Learning Needs: Labor and Delivery Process; Pain Management; Symptoms to Report; Treatment Plan; Medication; Diagnosis; Nutrition; Equipment; Care; Community Resources (11/30/2016 00:09:Dolly Horta RN) DOMESTIC VIOLANCE SCREENING Dom Viol Threatened/Hurt: No (11/30/2016 00:09:Dolly Horta RN) Hx of Abuse/Neglect past 2yrs: No (11/30/2016 00:09:Dolly Horta RN) Feel Unsafe Going Home: No (11/30/2016 00:09:Dolly Horta RN) Addt'l Observ Indicating Abuse: No (11/30/2016 00:09:Dolly Horta RN) Reason Unable to Complete Screen: N/A, Screen Completed (11/30/2016 00:09:Dolly Horta RN) Considered Personal Harm/Suicide: No (11/30/2016 00:09:Dolly Horta RN) NUTRITIONAL/FUNCTIONAL SCREENING Problem with Appetite >5 Days: No (11/30/2016 00:09:Dolly Horta RN) Chew/Swallow Difficulties: No (11/30/2016 00:09:Dolly Horta RN) Inappropriate Wt Gain/Loss: No (11/30/2016 00:09:Dolly Horta RN) Presence Skin Breakdown/Ulcer: No (11/30/2016 00:09:Dolly Horta RN) Special Diet: No (11/30/2016 00:09:Dolly Horta RN) Pt Requests Veneer Manufacturer Visit: No (11/30/2016 00:09:Dolly Horta RN) Hx of Any of the Following?: N/A (11/30/2016 00:09:Dolly Horta RN) New Diagnosis of: N/A (11/30/2016 00:09:Dolly Horta RN) Requires Assist w/Ambulation: No (11/30/2016 00:09:Dolly Horta RN) Uses Assist Device to Ambulate: No (11/30/2016 00:09:Dolly Horta RN) Pt Requires Help w/ADL's: No (11/30/2016 00:09:Dolly Horta RN)
--- NOTE | 2016-11-30 06:16 | L&D General Admission ---
General Admit Datetime Report Generated by CPN: 11/30/2016 06:00 INFORMATION Patient Age: 26 (06/28/2016 18:07:QS system process) EDC: 12/04/2016 00:00 (11/17/2016 13:01:Sandrine Gale RN) : 8 (11/17/2016 13:01:Iraida Sarabia RN) Para: 2 (11/17/2016 13:01:Sandrine Gale RN) Term: 2 (11/17/2016 13:01:Iraida Sarabia RN) : 0 (11/17/2016 13:01:Iraida Sarabia RN) Spontaneous Abortions: 3 (11/17/2016 13:01:Iraida Sarabia RN) Induced Abortions: 2 (11/17/2016 13:01:Iraida Sarabia RN) Livin (11/17/2016 13:01:Iraida Sarabia RN) Cesareans: 0 (11/17/2016 13:01:Iraida Sarabia RN) VBACs: 0 (11/17/2016 13:01:Iraida Sarabia RN) Ectopic: 0 (11/17/2016 13:01:Iraida Sarabia RN) Multiple Births: 0 (11/17/2016 13:01:Iraida Sarabia RN) Baby, Number in Womb: 1 (11/17/2016 16:12:Sandrine Gale RN) CARE Primary Art Objects Supervisor: [facility] (11/17/2016 13:01:Sandrine Gale RN) Adequate Care: No (11/17/2016 13:01:Iraida Sarabia RN) Prepregnancy Weight (lb): 132 (11/17/2016 13:01:Iraida Sarabia RN) Prepregnancy Weight (kg): 60.0 (11/17/2016 13:01:QS system process) Height (in): 60 (06/28/2016 18:07:QS system process) ALLERGIES Medication Allergy: No (11/17/2016 13:01:Sandrine Gale RN) Medication Allergies: No Known Allergies (11/17/2016) (11/17/2016 16:18:QS system process) Latex Allergy: No Latex Allergies (11/17/2016 13:01:Sandrine Gale RN) Food Allergies: n/a (11/17/2016 13:01:Sandrine Gale RN) Environmental Allergies: n/a (11/17/2016 13:01:Sandrine Gale RN) COMMUNICATION Primary Language: Marshallese (11/17/2016 13:01:Sandrine Gale RN) Medical Tx Preferred Language: Marshallese (11/17/2016 13:01:Sandrine Gale RN) Communication Barrier(s): None (11/17/2016 13:01:Iraida Sarabia RN) DEMOGRAPHICS Address: [address] [place] [address] EDNA PALACIOS [address] [address] (07/12/2016 12:07:QS system process) Zipcode: [id number] (06/28/2016 18:07:QS system process) Home (07/12/2016 12:07:QS system process) Work (07/12/2016 12:07:QS system process) SSN: [id number] (06/28/2016 18:07:QS system process) Next of Kin Name: VANESSA CONNOR (07/12/2016 12:07:QS system process) Next of Kin (06/28/2016 18:07:QS system process) Next of Kin Relationship: OR (06/28/2016 18:07:QS system process) Date of : 1990 (06/28/2016 18:07:QS system process) Marital Status: Single (06/28/2016 18:07:QS system process) Sex: Female (06/28/2016 18:07:QS system process) Race: (06/28/2016 18:07:QS system process) Ethnicity: Non- or (06/28/2016 18:07:QS system process) Adventist: None (06/28/2016 18:07:QS system process) FOB Involved: Yes (11/17/2016 13:01:Dolly Horta RN) DRUG AND ALCOHOL USE Alcohol: No (11/17/2016 13:01:Sandrine Gale RN) Cigarettes: Never Smoker. [id number] (11/17/2016 13:01:Sandrine Gale RN) Marijuana: No (11/17/2016 13:01:Sandrine Gale RN) Cocaine: No (11/17/2016 13:01:Sandrine Gale RN) Other Illicit Drugs: No (11/17/2016 13:01:Sandrine Gale RN) Supervisor Pleating: [facility] (11/17/2016 13:01:Sandrine Gale RN) Feeding Preference: Both (11/17/2016 13:01:Sandrine Gale RN) Benefit of Breast Feed Discussed: Yes (11/17/2016 13:01:Sandrine Gale RN) Circumcision: Yes (11/17/2016 13:01:Sandrine Gale RN) Classes Attended: No (11/17/2016 13:01:Sandrine Gale RN) Tubal Ligation: No (11/17/2016 13:01:Sandrine Gale RN) Tubal Authorization Signed: N/A (11/17/2016 13:01:Sandrine Gale RN) Consent: N/A (11/17/2016 13:01:Sandrine Gale RN) Consent Signed: N/A (11/17/2016 13:01:Sandrine Gale RN) Pain Management Plans: Epidural (11/17/2016 13:01:Sandrine Gale RN) Plans for Labor and Delivery: None (11/17/2016 13:01:Sandrine Gale RN) Support Person: Vanessa Connor (11/17/2016 13:01:Sandrine Gale RN) Support Person Relationship: Friend (11/17/2016 13:01:Sandrine Gale RN) Cultural/Spritual Practice: No (11/17/2016 13:01:Sandrine Gale RN) Spir/Cult Dietary Needs: No (11/17/2016 13:01:Sandrine Gale RN) LIVING SITUATION/DISCHARGE PLAN Living Arrangements: Apartment (11/17/2016 13:01:Sandrine Gale RN) Adequate Access to:: Electric; Heat; Refrigeration; Plumbing/Running water; Phone; Transportation (11/17/2016 13:01:Sandrine Gale RN) WIC Program: Needs referral (11/17/2016 13:01:Sandrine Gale RN) Currently Using Commun Resources: No (11/17/2016 13:01:Sandrine Gale RN) Outside Agency/Imaging Engineer: No (11/17/2016 13:01:Sandrine Gale RN) Car Seat for Discharge: No (11/17/2016 13:01:Sandrine Gale RN) Adoption Requested: No (11/17/2016 13:01:Sandrine Gale RN) Pt Contact w/ Post : N/A (11/17/2016 13:01:Sandrine Gale RN) LABS Blood Type: A Positive (11/17/2016 13:01:Iraida Sarabia RN) Antibody Screen: Negative (11/17/2016 13:01:Iraida Sarabia RN) Rho(G) this : Not Applicable (11/17/2016 13:01:Iraida Sarabia RN) Hemoglobin: 11.1 L (11/29/2016 23:10:QS system process) Hematocrit: 33.3 L (11/29/2016 23:10:QS system process) MCV: 80 (11/29/2016 23:10:QS system process) Group Beta Strep: Negative (11/17/2016 13:01:Iraida Sarabia RN) Gonorrhea: Negative (11/17/2016 13:01:Iraida Sarabia RN) Chlamydia: Negative (11/17/2016 13:01:Iraida Sarabia RN) RPR/VDRL: Nonreactive (11/17/2016 13:01:Iraida Sarabia RN) HIV Results: Negative (11/17/2016 13:01:Iraida Sarabia RN) Hepatitis B: Negative (11/17/2016 13:01:Iraida Sarabia RN) Rubella: Immune (11/17/2016 13:01:Iraida Sarabia RN) OB/PREVIOUS HISTORY Previous Procedures: Ultrasound; NST (11/17/2016 13:01:Sandrine Gale RN) Current Procedures: Ultrasound; NST (11/17/2016 13:01:Sandrine Gale RN) History of Previous : No (11/17/2016 13:01:Sandrine Gale RN) History of Gestational Diabetes: Yes (11/17/2016 13:01:Iraida Sarabia RN) History of PIH: No (11/17/2016 13:01:Sandrine Gale RN) History of Incompetent Cervix: No (11/17/2016 13:01:Sandrine Gale RN) History of Placenta Previa/Abrup: No (11/17/2016 13:01:Sandrine Gale RN) History of Macrosomia: No (11/17/2016 13:01:Sandrine Gale RN) History of IUGR: No (11/17/2016 13:01:Sandrine Gale RN) History of Hemorrhage: No (11/17/2016 13:01:Sandrine Gale RN) History of Loss/Stillborn: No (11/17/2016 13:01:Sandrine Gale RN) History of : No (11/17/2016 13:01:Sandrine Gale RN) History of D (Rh) Sensitization: No (11/17/2016 13:01:Sandrine Gale RN) History Recurrent Loss/Stillborn: No (11/17/2016 13:01:Sandrine Gale RN) History Depression/PP Depression: No (11/17/2016 13:01:Sandrine Gale RN) History of Uterine Anomaly/BOSTON: No (11/17/2016 13:01:Sandrine Gale RN) History of Infertility: No (11/17/2016 13:01:Sandrine Gale RN) History of ART Treatment: No (11/17/2016 13:01:Sandrine Gale RN) History of BOSTON: No (11/17/2016 13:01:Sandrine Gale RN) Comments Obstetrical History: G1-EAB in 2002 G2-EAB in 2003 G3- in 2005 female @ 39wks 7lbs 13 oz G4-SAB in 2007 G5-SAB in 2009 G6-SAB in 2009 G7- in 2013 male @ 38wks 7lbs 11 oz G8-Current (11/17/2016 13:01:Iraida Sarabia RN) MEDICAL HISTORY Med Hx Diabetes: Yes (11/17/2016 13:01:Iraida Sarabia RN) Diabetes Type: Gestational Diabetes (11/17/2016 13:01:Iraida Sarabia RN) Med Hx Hypertension: No (11/17/2016 13:01:Sandrine Gale RN) Med Hx Heart Disease: No (11/17/2016 13:01:Sandrine Gale RN) Med Hx Autoimmune Disorder: No (11/17/2016 13:01:Sandrine Gale RN) Med Hx Kidney Disease/UTI: No (11/17/2016 13:01:Sandrine Gale RN) Med Hx Neurologic/Epilepsy: No (11/17/2016 13:01:Sandrine Gale RN) Med Hx Psychiatric Disorders: No (11/17/2016 13:01:Sandrine Gale RN) Med Hx Hepatitis/Liver Disease: No (11/17/2016 13:01:Sandrine Gale RN) Med Hx Varicosities/Phlebitis: No (11/17/2016 13:01:Sandrine Gale RN) Med Hx Thyroid Dysfunction: No (11/17/2016 13:01:Sandrine Gale RN) Med Hx Trauma/Violence: No (11/17/2016 13:01:Sandrine Gale RN) Med Hx Blood Transfusion: No (11/17/2016 13:01:Sandrine Gale RN) Med Hx Pulmonary (Asthma,TB): No (11/17/2016 13:01:Sandrine Gale RN) Med Hx Breast: No (11/17/2016 13:01:Sandrine Gale RN) Med Hx LIQUEFIED PETROLEUM GASFITTER Surgery: No (11/17/2016 13:01:Sandrine Gale RN) Med Hx Hospitalization/Surgery: Yes (11/17/2016 13:01:Sandrine Gale RN) Med Hx Anesthetic Complications: No (11/17/2016 13:01:Sandrine Gale RN) Med Hx Abnormal Pap Smear: No (11/17/2016 13:01:Sandrine Gale RN) Other Medical Diseases: No (11/17/2016 13:01:Sandrine Gale RN) Med Hx Significant Family Hx: No (11/17/2016 13:01:Sandrine Gale RN) Details of Med/Surg Hx: Childbirth, GDM (11/17/2016 13:01:Iraida Sarabia RN) INFECTIOUS HISTORY Inf Hx Gonorrhea: No (11/17/2016 13:01:Sandrine Gale RN) Inf Hx Chlamydia: Yes (11/17/2016 13:01:Sandrine Gale RN) Inf Hx Syphilis: No (11/17/2016 13:01:Sandrine Gale RN) Inf Hx HIV/AIDS: No (11/17/2016 13:01:Sandrine Gale RN) Inf Hx Human Papilloma Virus: No (11/17/2016 13:01:Sandrine Gale RN) Inf Hx Pt/Partner Genital Herpes: No (11/17/2016 13:01:Sandrine Gale RN) Inf Hx Tuberculosis/Exposure: No (11/17/2016 13:01:Sandrine Gale RN) Inf Hx Hepatitis B,C: No (11/17/2016 13:01:Sandrine Gale RN) Inf Hx Rash or Viral Illness: No (11/17/2016 13:01:Sandrine Gale RN) Details of Infectious Hx: chlamydia 2004 (11/17/2016 13:01:Sandrine Gale RN) GENETIC HISTORY Gen Hx Age >=35 at HERMILA: No (11/17/2016 13:01:Sandrine Gale RN) Gen Hx Thalassemia: No (11/17/2016 13:01:Sandrine Gale RN) Gen Hx Congenital Heart Defect: No (11/17/2016 13:01:Sandrine Gale RN) Gen Hx Neural Tube Defect: No (11/17/2016 13:01:Sandrine Gale RN) Gen Hx Down's Syndrome: No (11/17/2016 13:01:Sandrine Gale RN) Gen Hx Darius-Sachs: No (11/17/2016 13:01:Sandrine Gale RN) Gen Hx Vidal: No (11/17/2016 13:01:Sandrine Gale RN) Gen Hx Familial Dysautonomia: No (11/17/2016 13:01:Sandrine Gale RN) Gen Hx Sickle Cell Disease/Trait: No (11/17/2016 13:01:Sandrine Gale RN) Gen Hx Hemophilia/Blood Disorder: No (11/17/2016 13:01:Sandrine Gale RN) Gen Hx Muscular Dystrophy: No (11/17/2016 13:01:Sandrine Gale RN) Gen Hx Cystic Fibrosis: No (11/17/2016 13:01:Sandrine Gale RN) Gen Hx Huntingtons Chorea: No (11/17/2016 13:01:Sandrine Gale RN) Gen Hx Mental Retardation/Autism: No (11/17/2016 13:01:Sandrine Gale RN) Gen Hx Tested for Fragile X: No (11/17/2016 13:01:Sandrine Gale RN) Gen Hx Other Inher/Chromosomal: No (11/17/2016 13:01:Sandrine Gale RN) Gen Hx Maternal Metabolic DO: No (11/17/2016 13:01:Sandrine Gale RN) Gen Hx Pt Father or FOB Defect: No (11/17/2016 13:01:Sandrine Gale RN) Gen Hx Other Genetic History: No (11/17/2016 13:01:Sandrine Gale RN) Gen Hx Drugs/Meds since LMP: No (11/17/2016 13:01:Sandrine Gale RN)
[2016-11-30] MEDS ORDERED: BENZOIN/ALOE VERA/STORAX/TOLU TINCTURE 60 ML TP PRN (06:58)
[2016-11-30] MEDS ORDERED: EPHEDRINE SULFATE INJ 50 MG/1 ML AMPULE IV ONE (06:58)
[2016-11-30] MEDS ORDERED: FENTANYL/BUPIVACAINE/NS/PF 100 ML EPI PRN (06:58)
[2016-11-30] MEDS ORDERED: BUPIVACAINE HCL 0.25 % INJ/PF (2.5 MG/1 ML) 30 ML VIAL INFIL ONE (06:58)
[2016-11-30] MEDS ORDERED: MISOPROSTOL 0.2 MG TABLET ONE (07:20)
[2016-11-30] MEDS ORDERED: EPHEDRINE SULFATE INJ 50 MG/1 ML AMPULE ONE (07:21)
[2016-11-30] MEDS ORDERED: PHENYLEPHRINE HCL INJ/PF 10 MG/1 ML SDV ONE (07:21)
[2016-11-30] MEDS ORDERED: LIDOCAINE 1% INJ-PF (10 MG/ML) 30 ML SDV ONE (07:21)
[2016-11-30] MEDS ORDERED: FENTANYL/BUPIVACAINE/NS/PF 200 MCG/100 ML RTUINJ EPI ONE (07:21)
[2016-11-30] MEDS ORDERED: FENTANYL CITRATE INJ/PF 100 MCG/2 ML AMPUL ONE (07:21)
[2016-11-30] MEDS ORDERED: BUPIVACAINE HCL 0.25 % INJ/PF (2.5 MG/1 ML) 30 ML VIAL ONE (07:21)
[2016-11-30] MEDS ORDERED: OXYTOCIN/NORMAL SALINE 20 UNIT/1,000 ML RTUINJ ONE (07:21)
--- NOTE | 2016-11-30 08:00 | L&D Flow Sheet ---
LD Flowsheet Datetime Report Generated by CPN: 11/30/2016 08:00 Datetime: 11/30/2016 07:49 NBP Sys/Samia/Mean (mmHg): 127 (QS system process) : 58 (QS system process) : 83 (QS system process) Pulse: 80 (QS system process) LaborFlag: Antepartum (QS system process) Datetime: 11/30/2016 07:48 NBP Sys/Samia/Mean (mmHg): 131 (QS system process) : 60 (QS system process) : 86 (QS system process) Pulse: 83 (QS system process) LaborFlag: Antepartum (QS system process) Datetime: 11/30/2016 07:47 NBP Sys/Samia/Mean (mmHg): 130 (QS system process) : 58 (QS system process) : 87 (QS system process) Pulse: 90 (QS system process) LaborFlag: Antepartum (QS system process) Datetime: 11/30/2016 07:46 NBP Sys/Samia/Mean (mmHg): 138 (QS system process) : 63 (QS system process) : 91 (QS system process) Pulse: 78 (QS system process) LaborFlag: Antepartum (QS system process) Datetime: 11/30/2016 07:45 NBP Sys/Samia/Mean (mmHg): 137 (QS system process) : 64 (QS system process) : 90 (QS system process) Pulse: 86 (QS system process) LaborFlag: Antepartum (QS system process) Datetime: 11/30/2016 07:44 NBP Sys/Samia/Mean (mmHg): 141 (QS system process) : 62 (QS system process) : 89 (QS system process) Pulse: 87 (QS system process) LaborFlag: Antepartum (QS system process) Datetime: 11/30/2016 07:43 NBP Sys/Samia/Mean (mmHg): 140 (QS system process) : 63 (QS system process) : 90 (QS system process) Pulse: 86 (QS system process) Epidural Procedure Other: Pump Started (Sandrine Gale RN) LaborFlag: Antepartum (QS system process) Datetime: 11/30/2016 07:42 NBP Sys/Samia/Mean (mmHg): 139 (QS system process) : 60 (QS system process) : 85 (QS system process) Pulse: 88 (QS system process) LaborFlag: Antepartum (QS system process) Datetime: 11/30/2016 07:40 NBP Sys/Samia/Mean (mmHg): 122 (QS system process) : 59 (QS system process) : 83 (QS system process) Pulse: 83 (QS system process) Epidural Procedure: Cath Placed (Sandrine Gale RN) LaborFlag: Antepartum (QS system process) Datetime: 11/30/2016 07:39 Epidural Procedure: Test Dose (Sandrine Baljinder, RN) Datetime: 11/30/2016 07:38 NBP Sys/Samia/Mean (mmHg): 132 (QS system process) : 70 (QS system process) : 91 (QS system process) Pulse: 74 (QS system process) Pulse: 84 (QS system process) SpO2 (%): 91 (QS system process) LaborFlag: Antepartum (QS system process) Datetime: 11/30/2016 07:36 Pulse: 90 (QS system process) SpO2 (%): 99 (QS system process) LaborFlag: Antepartum (QS system process) Datetime: 11/30/2016 07:34 Procedure Verify: Correct Patient Identity; Correct Side and Site are Marked; Accurate Procedure Consent Form; Agreement on Procedure to be Done; Correct Patient Position; Relevant Images and Results are Properly Labeled and Displayed; Addressed Need to Administer Antibiotics or Fluids for Irrigation; Safety Precautions Based on Patient History or Medication Use (Sandrine Gale RN) Anesthesia Plans: Epidural (Sandrine Gale RN) Anesthesia Comments: Dr. Painting at bedside (Sandrine Gale RN) Datetime: 11/30/2016 07:33 Anesthesia Plans: Epidural (Sandrine Gale RN) Epidural Positioning: Sitting (Sandrine Gale RN) Datetime: 11/30/2016 07:32 Procedure Verify: Correct Patient Identity; Correct Side and Site are Marked; Accurate Procedure Consent Form; Agreement on Procedure to be Done; Correct Patient Position; Relevant Images and Results are Properly Labeled and Displayed; Addressed Need to Administer Antibiotics or Fluids for Irrigation; Safety Precautions Based on Patient History or Medication Use (Sandirne Gale RN) Anesthesia Plans: Epidural (Sandrine Gale RN) Datetime: 11/30/2016 07:25 Communication: Report Given to Lg Gale KSENIA (Dolly Horta RN) Datetime: 11/30/2016 07:00 Monitor Mode: External; Palpation (Dolly Horta RN) Frequency (min): 1-1.5 (Dolly Horta RN) Quality: Mild/Moderate (Dolly Horta RN) Duration (sec): 50-70 (Dolly Horta, KSENIA) Duration Criteria: Less than Two 120 Second Contractions (Dolly Horta RN) Pattern: Normal: <= 5 Contractions in 10 Minutes (Dolly Horta RN) Resting Tone (Palpate): Relaxed (Dolly Horta RN) Monitor Mode: External US (Dolly Horta RN) FHR Baseline Rate : 135 (Dolly Horta RN) FHR Baseline Changes: No Baseline Change (Dolly Ledgerwood, RN) Variability: Moderate 6-25 bpm (Dolly Ledgerwood, RN) Accelerations: 10X10 (Dolly Ledgerwood, RN) Decelerations: None (Dolly Ledgerwood, RN) Datetime: 11/30/2016 06:57 NBP Sys/Samia/Mean (mmHg): 141 (QS system process) : 100 (QS system process) : 115 (QS system process) Pulse: 97 (QS system process) Respirations: 15 (Dolly Ledgerwood, RN) LaborFlag: Antepartum (QS system process) Datetime: 11/30/2016 06:47 I/O Interventions: Up to BR (Dolly Ledgerwood, RN) Datetime: 11/30/2016 06:37 Medication Comments: Cervidil removed (Iraida Lattibeaudeir, RN) Datetime: 11/30/2016 06:30 Monitor Mode: External; Palpation (Dolly Ledgerwood, RN) Frequency (min): irreg (Dolly Ledgerwood, RN) Quality: Mild/Moderate (Dolly Ledgerwood, RN) Duration (sec): 50-70 (Dolly Ledgerwood, RN) Duration Criteria: Less than Two 120 Second Contractions (Dolly Ledgerwood, RN) Pattern: Normal: <= 5 Contractions in 10 Minutes (Dolly Ledgerwood, RN) Resting Tone (Palpate): Relaxed (Dolly Ledgerwood, RN) Monitor Mode: External US (Dolly Ledgerwood, RN) FHR Baseline Rate : 140 (Dolly Ledgerwood, RN) FHR Baseline Changes: No Baseline Change (Dolly Ledgerwood, RN) Variability: Moderate 6-25 bpm (Dolly Ledgerwood, RN) Accelerations: 10X10 (Dolly Ledgerwood, RN) Decelerations: None (Dolly Ledgerwood, RN) Datetime: 11/30/2016 06:26 NBP Sys/Samia/Mean (mmHg): 148 (QS system process) : 77 (QS system process) : 106 (QS system process) Pulse: 80 (QS system process) LaborFlag: Antepartum (QS system process) Datetime: 11/30/2016 06:23 Dilatation (cm): 3.0 (Iraida Sarabia RN) Effacement (%): 80 (Iraida Sarabia RN) Station: -1 (Iraida Sarabia RN) Exam by: Barby Teran RN (Iraida Sarabia RN) IV/Blood Work: IV Bolus Started (Dolly Horta RN) Datetime: 11/30/2016 05:59 Monitor Mode: External; Palpation (Dolly Horta RN) Frequency (min): irreg (Dolly Ledgerwood, RN) Quality: Mild (Dolly Ledgerwood, RN) Duration (sec): 40-60 (Dolly Ledgerwood, RN) Duration Criteria: Less than Two 120 Second Contractions (Dolly Ledgerwood, RN) Pattern: Normal: <= 5 Contractions in 10 Minutes (Dolly Ledgerwood, RN) Resting Tone (Palpate): Relaxed (Dolly Ledgerwood, RN) Monitor Mode: External US (Dolly Ledgerwood, RN) FHR Baseline Rate : 140 (Dolly Ledgerwood, RN) FHR Baseline Changes: No Baseline Change (Dolly Ledgerwood, RN) Variability: Moderate 6-25 bpm (Dolly Ledgerwood, RN) Accelerations: 15X15 (Dolly Ledgerwood, RN) Decelerations: None (Dolly Ledgerwood, RN) Datetime: 11/30/2016 05:57 NBP Sys/Samia/Mean (mmHg): 145 (QS system process) : 67 (QS system process) : 96 (QS system process) Pulse: 90 (QS system process) LaborFlag: Antepartum (QS system process) Datetime: 11/30/2016 05:30 Monitor Mode: External; Palpation (Dolly Ledgerwood, RN) Frequency (min): irreg (Dolly Ledgerwood, RN) Quality: Mild (Dolly Ledgerwood, RN) Duration (sec): 50-130 (Dolly Ledgerwood, RN) Duration Criteria: Less than Two 120 Second Contractions (Dolly Ledgerwood, RN) Pattern: Normal: <= 5 Contractions in 10 Minutes (Dolly Ledgerwood, RN) Resting Tone (Palpate): Relaxed (Dolly Ledgerwood, RN) Monitor Mode: External US (Dolly Ledgerwood, RN) FHR Baseline Rate : 140 (Dolly Ledgerwood, RN) FHR Baseline Changes: No Baseline Change (Dolly Ledgerwood, RN) Variability: Moderate 6-25 bpm (Dolly Ledgerwood, RN) Accelerations: 15X15 (Dolly Ledgerwood, RN) Decelerations: Late (Dolly Ledgerwood, RN) Datetime: 11/30/2016 05:26 NBP Sys/Samia/Mean (mmHg): 120 (QS system process) : 58 (QS system process) : 83 (QS system process) Pulse: 74 (QS system process) LaborFlag: Antepartum (QS system process) Datetime: 11/30/2016 05:00 Monitor Mode: External; Palpation (Dolly Ledgerwood, RN) Frequency (min): 1.5-7 (Dolly Ledgerwood, RN) Quality: Mild (Dolly Ledgerwood, RN) Duration (sec): 60-90 (Dolly Ledgerwood, RN) Duration Criteria: Less than Two 120 Second Contractions (Dolly Ledgerwood, RN) Pattern: Normal: <= 5 Contractions in 10 Minutes (Dolly Ledgerwood, RN) Resting Tone (Palpate): Relaxed (Dolly Ledgerwood, RN) Monitor Mode: External US (Dolly Ledgerwood, RN) FHR Baseline Rate : 140 (Dolly Ledgerwood, RN) FHR Baseline Changes: No Baseline Change (Dolly Ledgerwood, RN) Variability: Moderate 6-25 bpm (Dolly Ledgerwood, RN) Accelerations: 10X10 (Dolly Ledgerwood, RN) Decelerations: Prolonged (Dolly Ledgerwood, RN) Datetime: 11/30/2016 04:57 NBP Sys/Samia/Mean (mmHg): 131 (QS system process) : 62 (QS system process) : 89 (QS system process) Pulse: 70 (QS system process) Respirations: 14 (Dolly Ledgerwood, RN) LaborFlag: Antepartum (QS system process) Datetime: 11/30/2016 04:55 Actions for Decelerations: Side to Side (Dolly Ledgerwood, RN) Patient Position/Activity: Right Tilt (Dolly Ledgerwood, RN) Communication: RN at Bedside (Dolly Ledgerwood, RN) Datetime: 11/30/2016 04:30 Monitor Mode: External; Palpation (Dolly Ledgerwood, RN) Frequency (min): 2-5.5 (Dolly Ledgerwood, RN) Quality: Mild (Dolly Ledgerwood, RN) Duration (sec): 60-80 (Dolly Ledgerwood, RN) Duration Criteria: Less than Two 120 Second Contractions (Dolly Ledgerwood, RN) Pattern: Normal: <= 5 Contractions in 10 Minutes (Dolly Ledgerwood, RN) Resting Tone (Palpate): Relaxed (Dolly Ledgerwood, RN) Monitor Mode: External US (Dolly Ledgerwood, RN) FHR Baseline Rate : 140 (Dolly Ledgerwood, RN) FHR Baseline Changes: No Baseline Change (Dolly Ledgerwood, RN) Variability: Moderate 6-25 bpm (Dolly Ledgerwood, RN) Accelerations: 10X10 (Dolly Ledgerwood, RN) Decelerations: None (Dolly Ledgerwood, RN) Datetime: 11/30/2016 04:27 NBP Sys/Samia/Mean (mmHg): 122 (QS system process) : 62 (QS system process) : 87 (QS system process) Pulse: 65 (QS system process) LaborFlag: Antepartum (QS system process) Datetime: 11/30/2016 04:00 Monitor Mode: External; Palpation (Dolly Horta, RN) Frequency (min): 4.5-5.5 (Dolly Horta, RN) Quality: Mild (Dolly Ledgerwood, RN) Duration (sec): 60-110 (Dolly Ledgerwood, RN) Duration Criteria: Less than Two 120 Second Contractions (Dolly Lopezgerkarlos, RN) Pattern: Normal: <= 5 Contractions in 10 Minutes (Dolly Jessicagerwood, RN) Resting Tone (Palpate): Relaxed (Dolly Lopezgerkarlos, RN) Monitor Mode: External US (Dolly Horta, RN) FHR Baseline Rate : 145 (Dolly Horta, RN) FHR Baseline Changes: No Baseline Change (Dolly Ledgerwood, RN) Variability: Moderate 6-25 bpm (Dolly Ledgerwood, RN) Accelerations: 10X10 (Dolly Ledgerwood, RN) Decelerations: None (Dolly Ledgerwood, RN) Datetime: 11/30/2016 03:56 NBP Sys/Samia/Mean (mmHg): 116 (QS system process) : 57 (QS system process) : 82 (QS system process) Pulse: 75 (QS system process) Respirations: 14 (Dolly Ledgerwood, RN) LaborFlag: Antepartum (QS system process) Datetime: 11/30/2016 03:30 Monitor Mode: External; Palpation (Dolly Ledgerwood, RN) Frequency (min): 4.5-5.5 (Dolly Ledgerwood, RN) Quality: Mild (Dolly Ledgerwood, RN) Duration (sec): 60-100 (Dolly Ledgerwood, RN) Duration Criteria: Less than Two 120 Second Contractions (Dolly Ledgerwood, RN) Pattern: Normal: <= 5 Contractions in 10 Minutes (Dolly Ledgerwood, RN) Resting Tone (Palpate): Relaxed (Dolly Ledgerwood, RN) Monitor Mode: External US (Dolly Ledgerwood, RN) FHR Baseline Rate : 140 (Dolly Ledgerwood, RN) FHR Baseline Changes: No Baseline Change (Dolly Ledgerwood, RN) Variability: Moderate 6-25 bpm (Dolly Ledgerwood, RN) Accelerations: 15X15 (Dolly Ledgerwood, RN) Decelerations: None (Dolly Ledgerwood, RN) Datetime: 11/30/2016 03:26 NBP Sys/Samia/Mean (mmHg): 126 (QS system process) : 63 (QS system process) : 89 (QS system process) Pulse: 63 (QS system process) LaborFlag: Antepartum (QS system process) Datetime: 11/30/2016 03:00 Monitor Mode: External; Palpation (Dolly Ledgerwood, RN) Frequency (min): irreg (Dolly Ledgerwood, RN) Quality: Mild (Dolly Ledgerwood, RN) Duration (sec): 70-110 (Dolly Ledgerwood, RN) Duration Criteria: Less than Two 120 Second Contractions (Dolly Ledgerwood, RN) Pattern: Normal: <= 5 Contractions in 10 Minutes (Dolly Ledgerwood, RN) Resting Tone (Palpate): Relaxed (Dolly Ledgerwood, RN) Monitor Mode: External US (Dolly Ledgerwood, RN) FHR Baseline Rate : 145 (Dolly Ledgerwood, RN) FHR Baseline Changes: No Baseline Change (Dolly Ledgerwood, RN) Variability: Moderate 6-25 bpm (Dolly Ledgerwood, RN) Accelerations: 10X10 (Dolly Ledgerwood, RN) Decelerations: None (Dolly Ledgerwood, RN) Datetime: 11/30/2016 02:56 NBP Sys/Samia/Mean (mmHg): 126 (QS system process) : 73 (QS system process) : 95 (QS system process) Pulse: 65 (QS system process) LaborFlag: Antepartum (QS system process) Datetime: 11/30/2016 02:32 Patient Position/Activity: High Fowlers (Dolly Ledgerwood, RN) Datetime: 11/30/2016 02:30 Monitor Mode: External; Palpation (Dolly Ledgerwood, RN) Frequency (min): irreg (Dolly Ledgerwood, RN) Quality: Mild (Dolly Ledgerwood, RN) Duration (sec): 80-130 (Dolly Ledgerwood, RN) Duration Criteria: Less than Two 120 Second Contractions (Dolly Ledgerwood, RN) Pattern: Normal: <= 5 Contractions in 10 Minutes (Dolly Ledgerwood, RN) Resting Tone (Palpate): Relaxed (Dolly Ledgerwood, RN) Monitor Mode: External US (Dolly Ledgerwood, RN) FHR Baseline Rate : 150 (Dolly Ledgerwood, RN) FHR Baseline Changes: No Baseline Change (Dolly Ledgerwood, RN) Variability: Moderate 6-25 bpm (Dolly Ledgerwood, RN) Accelerations: 15X15 (Dolly Ledgerwood, RN) Decelerations: None (Dolly Ledgerwood, RN) Datetime: 11/30/2016 02:26 NBP Sys/Samia/Mean (mmHg): 103 (QS system process) : 60 (QS system process) : 77 (QS system process) Pulse: 66 (QS system process) LaborFlag: Antepartum (QS system process) Datetime: 11/30/2016 02:20 Actions for Decelerations: Side to Side; IV Bolus; Provider Reviewed Strip (Dolly Ledgerwood, RN) Communication: RN at Bedside ([facility]) Datetime: 11/30/2016 02:19 Actions for Decelerations: IV Bolus (Dariana Zhu, RN) Datetime: 11/30/2016 02:00 Monitor Mode: External; Palpation (Dolly Ledgerwood, RN) Frequency (min): x1 (Dolly Ledgerwood, RN) Quality: Mild (Dolly Ledgerwood, RN) Duration (sec): 120 (Dolly Ledgerwood, RN) Duration Criteria: Less than Two 120 Second Contractions (Dolly Ledgerwood, RN) Resting Tone (Palpate): Relaxed (Dolly Ledgerwood, RN) Monitor Mode: External US (Dolly Ledgerwood, RN) FHR Baseline Rate : 145 (Dolly Ledgerwood, RN) FHR Baseline Changes: No Baseline Change (Dolly Ledgerwood, RN) Variability: Moderate 6-25 bpm (Dolly Ledgerwood, RN) Accelerations: 10X10 (Dolly Ledgerwood, RN) Comments: spontaneous deceleration (Dolly Ledgerwood, RN) Datetime: 11/30/2016 01:57 NBP Sys/Samia/Mean (mmHg): 120 (QS system process) : 66 (QS system process) : 85 (QS system process) Pulse: 74 (QS system process) Respirations: 14 (Dolly Ledgerwood, RN) LaborFlag: Antepartum (QS system process) Datetime: 11/30/2016 01:44 Actions for Decelerations: Side to Side; Provider Reviewed Strip (Dolly Horta, RN) Actions for Decelerations: Side to Side (Dolly Ledgerwood, RN) Patient Position/Activity: Right Tilt (Dolly Ledgerwood, RN) Communication: RN at Bedside (Dolly Lopezgerkarlos, RN) Datetime: 11/30/2016 01:30 Monitor Mode: External; Palpation (Dolly Ledgerwood, RN) Frequency (min): occas (Dolly Ledgerwood, RN) Quality: Mild (Dolly Ledgerwood, RN) Duration (sec): 80 (Dolly Ledgerwood, RN) Duration Criteria: Less than Two 120 Second Contractions (Dolly Ledgerwood, RN) Pattern: Normal: <= 5 Contractions in 10 Minutes (Dolly Ledgerwood, RN) Resting Tone (Palpate): Relaxed (Dolly Ledgerwood, RN) Monitor Mode: External US (Dolly Ledgerwood, RN) FHR Baseline Rate : 145 (Dolly Ledgerwood, RN) FHR Baseline Changes: No Baseline Change (Dolly Ledgerwood, RN) Variability: Moderate 6-25 bpm (Dolly Ledgerwood, RN) Accelerations: 15X15 (Dolly Ledgerwood, RN) Comments: spontaneous deceleration (Dolly Ledgerwood, RN) Datetime: 11/30/2016 01:26 NBP Sys/Samia/Mean (mmHg): 101 (QS system process) : 53 (QS system process) : 72 (QS system process) Pulse: 68 (QS system process) LaborFlag: Antepartum (QS system process) Datetime: 11/30/2016 01:25 Actions for Decelerations: Provider Reviewed Strip (Dolly Horta RN) Communication: RN at Bedside (Dolly Horta, KSENIA) Datetime: 11/30/2016 01:00 Monitor Mode: External; Palpation (Dolly Horta, RN) Frequency (min): x1 (Dolly Horta RN) Quality: Mild (Dolly Ledgerwood, RN) Duration (sec): 110 (Dolly Ledgerwood, RN) Duration Criteria: Less than Two 120 Second Contractions (Dolly Ledgerwood, RN) Resting Tone (Palpate): Relaxed (Dolly Ledgerwood, RN) Monitor Mode: External US (Dolly Ledgerwood, RN) FHR Baseline Rate : 150 (Dolly Ledgerwood, RN) FHR Baseline Changes: No Baseline Change (Dolly Ledgerwood, RN) Variability: Moderate 6-25 bpm (Dolly Ledgerwood, RN) Accelerations: 15X15 (Dolly Ledgerwood, RN) Decelerations: None (Dolly Ledgerwood, RN) Datetime: 11/30/2016 00:56 NBP Sys/Samia/Mean (mmHg): 108 (QS system process) : 58 (QS system process) : 78 (QS system process) Pulse: 76 (QS system process) Respirations: 14 (Dolly Ledgerwood, RN) LaborFlag: Antepartum (QS system process) Datetime: 11/30/2016 00:30 Monitor Mode: External; Palpation (Dolly Ledgerwood, RN) Frequency (min): occas (Dolly Ledgerwood, RN) Quality: Mild (Dolly Ledgerwood, RN) Duration (sec): 70-80 (Dolly Ledgerwood, RN) Duration Criteria: Less than Two 120 Second Contractions (Dolly Ledgerwood, RN) Pattern: Normal: <= 5 Contractions in 10 Minutes (Dolly Ledgerwood, RN) Resting Tone (Palpate): Relaxed (Dolly Ledgerwood, RN) Contraction Comments: occasional contractions with uteral irritability. (Dolly Ledgerwood, RN) Monitor Mode: External US (Dolly Ledgerwood, RN) FHR Baseline Rate : 155 (Dolly Ledgerwood, RN) FHR Baseline Changes: No Baseline Change (Dolly Ledgerwood, RN) Variability: Moderate 6-25 bpm (Dolly Ledgerwood, RN) Accelerations: 15X15 (Dolly Ledgerwood, RN) Decelerations: None (Dolly Ledgerwood, RN) Datetime: 11/30/2016 00:26 NBP Sys/Samia/Mean (mmHg): 98 (QS system process) : 54 (QS system process) : 71 (QS system process) Pulse: 75 (QS system process) LaborFlag: Antepartum (QS system process) Datetime: 11/30/2016 00:00 Monitor Mode: External; Palpation (Dolly Ledgerwood, RN) Frequency (min): occa (Dolly Ledgerwood, RN) Quality: Mild (Dolly Ledgerwood, RN) Duration (sec): 70-90 (Dolly Ledgerwood, RN) Duration Criteria: Less than Two 120 Second Contractions (Dolly Ledgerwood, RN) Pattern: Normal: <= 5 Contractions in 10 Minutes (Dolly Ledgerwood, RN) Resting Tone (Palpate): Relaxed (Dolly Ledgerwood, RN) Monitor Mode: External US (Dolly Ledgerwood, RN) FHR Baseline Rate : 155 (Dolly Ledgerwood, RN) FHR Baseline Changes: No Baseline Change (Dolly Ledgerwood, RN) Variability: Moderate 6-25 bpm (Dolly Ledgerwood, RN) Accelerations: 15X15 (Dolly Ledgerwood, RN) Decelerations: None (Dolly Ledgerwood, RN) Dilatation (cm): 0.5 (Dolly Ledgerwood, RN) Effacement (%): 50 (Dolly Ledgerwood, RN) Station: -3 (Dolly Ledgerwood, RN) Exam by: Lindsay Horta RN (Dolly Ledgerwood, RN) Cervical Ripening Agents: Cervidil (Dolly Ledgerwood, RN) Datetime: 11/29/2016 23:56 NBP Sys/Samia/Mean (mmHg): 119 (QS system process) : 67 (QS system process) : 86 (QS system process) Pulse: 86 (QS system process) LaborFlag: Antepartum (QS system process) Datetime: 11/29/2016 23:40 Procedures: Consents Signed (Dolly Ledgerwood, RN) Datetime: 11/29/2016 23:30 Monitor Mode: External; Palpation (Dolly Ledgerwood, RN) Frequency (min): x1 (Dolly Ledgerwood, RN) Quality: Mild (Dolly Ledgerwood, RN) Duration (sec): 100 (Dolly Ledgerwood, RN) Duration Criteria: Less than Two 120 Second Contractions (Dolly Ledgerwood, RN) Resting Tone (Palpate): Non Relaxed (Dolly Ledgerwood, RN) Monitor Mode: External US (Dolly Ledgerwood, RN) FHR Baseline Rate : 150 (Dolly Ledgerwood, RN) FHR Baseline Changes: No Baseline Change (Dolly Ledgerwood, RN) Variability: Moderate 6-25 bpm (Dolly Ledgerwood, RN) Accelerations: 10X10 (Dolly Ledgerwood, RN) Decelerations: None (Dolly Ledgerwood, RN) Datetime: 11/29/2016 23:28 NBP Sys/Samia/Mean (mmHg): 116 (QS system process) : 66 (QS system process) : 84 (QS system process) Pulse: 89 (QS system process) Respirations: 15 (Dolly Horta, RN) LaborFlag: Antepartum (QS system process) Datetime: 11/29/2016 23:11 Pain Scale: 0 (Dolly Horta RN) Pain Presence: None/Denies (Dolly Horta, RN) Pain Type: N/A (Dolly Lopezgerkarlos, RN) Level of Consciousness: Fully Conscious (Dolly Horta, RN) DTR's/Clonus: DTRs 2+; No Clonus (Dolly Horta, RN) Headache: Denies (Dolly Horta, RN) Breath Sounds, Left: Clear and Equal (Dolly Horta, RN) Breath Sounds, Right: Clear and Equal (Dolly Lopezgerkarlos, RN) Nausea/Vomiting: Denies (Dolly Horta, RN) RUQ Epigastric Pain: Denies (Dolly Horta RN) Instructional Method: Demo; Verbal; Patient Instructed (Dolly Horta RN) Plan of Care: Plan of Care Discussed; Induction (Dolly Horta RN) Unit Routine: [place] to Room; Call [place]; Bed; Visiting Policy; Handwashing; Monitoring; Safety/Fall Risk Prevention; Bathroom Privileges (Dolly Horta RN) LaborFlag: Antepartum (QS system process) Datetime: 11/29/2016 23:08 Procedures: Labs Drawn (Dolly Horta RN) Datetime: 11/29/2016 23:07 IV/Blood Work: IV Started; New IV Bag Hung (Dolly Horta RN) Patient Position/Activity: Right Tilt (Dolly Horta RN) Patient Care Comments: 18 G Left Hand by Lindsay Horta RN (Dolly Horta RN) Datetime: 11/29/2016 23:06 Patient Position/Activity: Left Tilt (Dolly Ledgerwood, RN) Datetime: 11/29/2016 23:00 Monitor Mode: External; Palpation (Dolly Ledgerwood, RN) Frequency (min): none (Dolly Ledgerwood, RN) Resting Tone (Palpate): Relaxed (Dolly Ledgerwood, RN) Contraction Comments: pt feels no contractions (Dolly Ledgerwood, RN) Monitor Mode: External US (Dolly Ledgerwood, RN) FHR Baseline Rate : 145 (Dolly Ledgerwood, RN) FHR Baseline Changes: No Baseline Change (Dolly Ledgerwood, RN) Variability: Moderate 6-25 bpm (Dolly Ledgerwood, RN) Accelerations: None (Dolly Ledgerwood, RN) Decelerations: None (Dolly Ledgerwood, RN) Datetime: 11/29/2016 22:56 NBP Sys/Samia/Mean (mmHg): 108 (QS system process) : 54 (QS system process) : 77 (QS system process) Pulse: 70 (QS system process) Respirations: 14 (Dolly Horta RN) LaborFlag: Antepartum (QS system process)
[2016-11-30] MEDS ORDERED: DIPH/PERTUSS(ACELL)/TETANUS VAC/PF 0.5 ML SYR (>=10YO) IM PRN (09:48)
[2016-11-30] MEDS ORDERED: MEASLES,MUMPS&RUBELLA VACC/PF 0.5 ML VIAL SUBCUT PRN (09:48)
[2016-11-30] MEDS ORDERED: ACETAMINOPHEN WITH CODEINE #3 TABLET PO PRN ×2 (09:48)
[2016-11-30] MEDS ORDERED: DIBUCAINE 1% OINTMENT 28 GM TP PRN (09:48)
[2016-11-30] MEDS ORDERED: BENZOCAINE/MENTHOL AEROSOL SPRAY 56 ML TOP PRN (09:48)
[2016-11-30] MEDS ORDERED: OXYTOCIN/NORMAL SALINE 1,000 ML IV PRN (09:48)
[2016-11-30] MEDS ORDERED: ZOLPIDEM TARTRATE 5 MG TABLET PO PRN (09:48)
--- NOTE | 2016-11-30 11:38 | Delivery Summary ---
Del Sum A-C Datetime Report Generated by CPN: 11/30/2016 11:38 ADMISSION DATA Chief Complaint: Scheduled Induction of Labor Indication for Induction: Other Indication for Induction Comment: Unstable lie Admission Impression: Term, Intrauterine Admit Provider Comments: Pt. admitted last night by Dr. Champion. Was scheduled for ECV due to transverse lie, however, presented to D and baby was cephalic so the decision was made to admit her and induce due to unstable lie. Pt. is a 26yo with late entry to care at [facility], then transfered to [facility] and received no care from 26-37w. also complicated by Anemia and no 1hr GTT. However a hgb a1c result of 6.0 was deemed to be GDM which she received teaching and supplies at 38w. Pt. is A+, RI, GBS neg. DELIVERY PERSONNEL Delivery Doctor:: Willy Briceno CNM Nurse Supercalender Operator Helper Certified:: Dunia Briceno CNM Labor and Delivery Nurse:: Sandrine Gale RNdirector of professional services Nurse:: Maribell Beck RN Nursery Nurse:: Blanca Benson RN Human Services Care Specialist/BATHING SUIT MAKER: [facility] Additional Personnel: : MELVIN Major MATERNAL INFORMATION Delivery Anesthesia: Epidural Medications After Delivery: Pitocin Drip 20 Units/1000ml NSS Meds After Delivery Comment: Pitocin 20 units in 1L NS bolusing per order Estimated Blood Loss (ml): 100 Maternal Complications: None Provider Comments: Pt. quickly progressed to c/c/+1 with urge to push after ruptured of membranes. Large amount of meconium present, nursery called to be present for delivery. Pt. began pushing and went on to deliver a viable baby boy in PRUDENCE position thru loose nuchal cord x1. Spontaneous respiratory effort and cry at delivery. Baby placed on maternal abdomen, cord allowed to stop pulsating then clamped x2 and cut (3vc noted). Placenta delivered spontaneously intact, fundus firm @ U-1. Bleeding stable. Vaginal and perineal inspection revealed no lacerations. Mother and baby skin to skin in room bonding. LABOR SUMMARY EDC: 12/04/2016 00:00 No. Babies in Womb: 1 Attempted: No Labor Anesthesia: Epidural LABOR INFORMATION Reason for Induction: Gestational Hypertension; Other Reason for Induction- Other: unstable lie Onset of Labor: 11/30/2016 06:20 Complete Dilatation: 11/30/2016 09:36 Cervical Ripening Agents: Cervidil Oxytocin: N/A Group B Beta Strep: Negative Antibiotics # of Doses: 0 Steroids Given: None Reason Steroids Not Administered: Not Applicable MEMBRANES Membranes Rupture Method: Artificial Rupture of Membranes: 11/30/2016 08:59 Length of Rupture (hr): 0.72 Amniotic Fluid Color: Heavy Meconium Amniotic Fluid Amount: Moderate Amniotic Fluid Odor: Foul STAGES OF LABOR Stage 1 hr: 3 Stage 1 min: 16 Stage 2 hr: 0 Stage 2 min: 6 Stage 3 hr: 0 Stage 3 min: 6 Total Time in Labor hr: 3 Total Time in Labor min: 28 VAGINAL DELIVERY Episiotomy: None Laceration Extension: N/A Laceration Type: None Sponge Count Correct: N/A Sharps Count Correct: N/A CSECTION DELIVERY Primary Indication: N/A Secondary Indication: N/A CSection Incidence: N/A Labor: N/A Elective: N/A CSection Incision: N/A BABY A INFORMATION Delivery Date/Time: 11/30/2016 09:42 Method of Delivery: Vaginal Born in Route : No : N/A Forceps: N/A Vacuum Extraction: N/A Shoulder Dystocia : No PRESENTATION/POSITION BABY A Presentation: Cephalic Cephalic Presentation: Vertex Vertex Position: Left Occipital Anterior Breech Presentation: N/A PLACENTA INFORMATION BABY A Placenta Delivery Time : 11/30/2016 09:48 Placenta Method of Delivery: Spontaneous Placenta Status: Delivered SCORES BABY A Heart Rate 1 min: >100 bpm Resp Effort 1 min: Good Cry Reflex Irritability 1 min: Cough or Sneeze or Pulls Away Muscle Tone 1 min: Active Motion Color 1 min: Blue/Pale SCORE 1 MIN: 8 Heart Rate 5 min: >100 bpm Resp Effort 5 min: Good Cry Reflex Irritability 5 min: Cough or Sneeze or Pulls Away Muscle Tone 5 min: Active Motion Color 5 min: Body Aspen, Extremities Blue SCORE 5 MIN: 9 INFANT INFORMATION BABY A Gestational Age at Delivery: 39.3 Gestational Status: Full Term- 39- 40.6 Weeks Outcome : Liveborn Condition : Stable Sex: Male IDENTIFICATION BABY A Infant Verification Date/Time: 11/30/2016 10:01 ID Band Number: [id number] Mother's Name Verified: Yes Infant RN Verifying Infant: Jared Gale, RN Additional Verifying Personnel: Heaven Henriquez, RN WEIGHT/LENGTH BABY A Birthweight (gm): 3390 Weight (lb): 7 Weight (oz): 8 Length (in): 20.50 Length (cm): 52.07 CORD INFORMATION BABY A No. Cord Vessels: 3 Nuchal Cord : Around Neck x1, Loose Cord Blood Taken: Yes-For Storage (Mom's Blood type +) Infant Suction: Mouth; Nose ASSESSMENT BABY A Infant Complications: Meconium Physical Findings at Delivery: Within Normal Limits; Slovak Spots Respirations: Appears Normal Skin to Skin: Yes Skin to Skin Time (min): 60 Infant Care By: KSENIA Bernardo Transferred To: Remains with Mother BABY B INFORMATION : N/A SIGNATURES Assignment: Katherine Robins MD Signature: with User ID: Kristina : with User ID: [email or web address]
--- NOTE | 2016-11-30 11:58 | Admission Physical ---
Datetime Report Generated by CPN: 11/30/2016 11:57 CURRENT ADMISSION Chief Complaint: Scheduled Induction of Labor Indication for Induction: Other Indication for Induction- Other: Unstable lie Admit Plan: Admit to Unit; Initiate Labor Induction Protocol ALLERGIES Medication Allergies: No Medication Allergies: No Known Allergies (11/17/2016) Latex: No Latex Allergies Food Allergies: n/a Environmental Allergies: n/a OBSTETRICAL HISTORY EDC: 12/04/2016 00:00 : 8 Para: 2 Term: 2 : 0 SAB: 3 IAB: 2 Ectopic: 0 Livin Cesareans: 0 VBACs: 0 Multiple Births: 0 Gestational Diabetes: Yes Rh Sensitization: No Incompetent Cervix: No BOSTON: No Infertility: No ART Treatment: No Uterine Anomaly: No IUGR: No Hx Previous C/S: No Macrosomia: No Hx Loss/Stillborn: No PIH: No Hx : No Placenta Previa/Abruption: No Depression/PP Depression: No PTL/PROM: No Post Hemorrhage: No Current Procedures: Ultrasound; NST Obstetrical History Comments: G1-EAB in 2002 G2-EAB in 2003 G3- in 2005 female @ 39wks 7lbs 13 oz G4-SAB in 2007 G5-SAB in 2009 G6-SAB in 2009 G7- in 2013 male @ 38wks 7lbs 11 oz G8-Current SEE RECORDS Alcohol: No Marijuana : No Cocaine: No Other Illicit Drugs: No Cigarettes: Never Smoker. [id number] MEDICAL HISTORY Diabetes: Yes Diabetes Type: Gestational Diabetes Blood Transfusion: No Pulmonary Disease (Asthma, TB): No Breast Disease: No Hypertension: No Veneer Layer Surgery: No Heart Disease: No Hosp/Surgery: Yes Autoimmune Disorder: No Anesthetic Complications: No Kidney Disease: No Abnormal Pap Smear: No Neuro/Epilepsy: No Psychiatric Disorders: No Other Medical Diseases: No Hepatitis/Liver Disease: No Significant Family History: No Varicosities/Phlebitis: No Trauma/Violence : No Thyroid Dysfunction: No Medical History Comments: Childbirth, GDM INFECTIOUS HISTORY Gonorrhea: No Genital Herpes: No Chlamydia: Yes Tuberculosis: No Syphilis: No Hepatitis: No HIV/AIDS Exposure: No Rash or Viral Illness: No HPV: No Infectious History Comments: chlamydia 2004 PHYSICAL EXAM General: Normal HEENT: Normal Neurologic: Normal Thyroid: Normal Heart: Normal Lungs: Normal Breast: Normal Back: Normal Abdomen: Normal Genitourinary Exam: Normal Extremities: Normal DTRs: Normal Pelvic Type: Adequate Physical Exam Comments: cervix as stated on morning rounds, with SROM with exam large amount of meconium stained fluid. Vital Signs: Reviewed; Within Normal Limits Details Vital Signs: mild elevations related to pain VAGINAL EXAM Dilatation: 9 Effacement: 100 Station: 0 MEMBRANES Membranes: Ruptured Amniotic Fluid Color: Meconium, Heavy FETUS A EGA: 39.3 Presentation: Vertex Admit Comment: Pt. admitted last night by Dr. Champion. Was scheduled for ECV due to transverse lie, however, presented to L_D and baby was cephalic so the decision was made to admit her and induce due to unstable lie. Pt. is a 26yo with late entry to care at [facility], then transfered to [facility] and received no care from 26-37w. also complicated by Anemia and no 1hr GTT. However a hgb a1c result of 6.0 was deemed to be GDM which she received teaching and supplies at 38w. Pt. is A+, RI, GBS neg. PLANS FOR LABOR AND DELIVERY Labor and Delivery: None Pain Management: Epidural Feeding Preference: Both Benefit of Breast Feed Discussed: Yes Circumcision: Yes INFORMED CONSENT Assignment: Katherine Robins MD Signature: with User ID: Kristina : with User ID: [email or web address]
--- NOTE | 2016-11-30 12:02 | L&D Flow Sheet ---
LD Flowsheet Datetime Report Generated by CPN: 11/30/2016 12:00 Datetime: 11/30/2016 11:20 NBP Sys/Samia/Mean (mmHg): 125 (QS system process) : 58 (QS system process) : 84 (QS system process) Pulse: 71 (QS system process) Datetime: 11/30/2016 10:56 NBP Sys/Samia/Mean (mmHg): 116 (QS system process) : 65 (QS system process) : 87 (QS system process) Pulse: 90 (QS system process) Datetime: 11/30/2016 10:41 NBP Sys/Samia/Mean (mmHg): 116 (QS system process) : 62 (QS system process) : 81 (QS system process) Pulse: 71 (QS system process) Datetime: 11/30/2016 10:26 NBP Sys/Samia/Mean (mmHg): 120 (QS system process) : 64 (QS system process) : 86 (QS system process) Pulse: 86 (QS system process) Datetime: 11/30/2016 10:17 Communication Comments: Sarita Bowen RN at bedside (Sandrine Gale RN) Datetime: 11/30/2016 10:12 NBP Sys/Samia/Mean (mmHg): 131 (QS system process) : 72 (QS system process) : 86 (QS system process) Pulse: 90 (QS system process) Datetime: 11/30/2016 10:05 Stage of : Recovery (Sandrine Gale RN) Respirations: 16 (Sandrine Gale RN) Temperature (F): 98.2 (Sandrine Gale RN) Temperature (C): 36.8 (QS system process) Temperature Route: Oral (Sandrine Gale RN) Pain Scale: 1 (Sandrine Gale RN) Pain Presence: Constant (Sandrine Gale RN) Pain Type: Burning (Sandrine Gale RN) Pain Location: Perineum (Sandrine Gale RN) Pain Goal: 1 (Sandrine Gale RN) Pain Relief Measures: Comfort Measures (Sandrine Gale RN) Datetime: 11/30/2016 09:56 NBP Sys/Samia/Mean (mmHg): 129 (QS system process) : 60 (QS system process) : 86 (QS system process) Pulse: 96 (QS system process) LaborFlag: Antepartum (QS system process) Datetime: 11/30/2016 09:54 NBP Sys/Samia/Mean (mmHg): 131 (QS system process) : 63 (QS system process) : 91 (QS system process) Pulse: 95 (QS system process) LaborFlag: Antepartum (QS system process) Datetime: 11/30/2016 09:42 Stage 2 Comments: Delivery liveborn male spontaneous lusty cry noted (Sandrine Gale RN) Datetime: 11/30/2016 09:38 Provider Reviewed Strip: Yes (Sandrine Gale RN) Communication: RN at Bedside; Provider at Bedside (Sandrine Gale RN) Communication Comments: Mariah Briceno CNM and Dr Robins present at bedside for delivery. Nursery staff Blanco Blue present at bedside for delivery (Sandrine Gale RN) Datetime: 11/30/2016 09:37 Pushing: Coached on Pushing; Urge to Push (Sandrine Gale RN) Pushing Position: Pushing with Contractions; Pushing Lithotomy (Sandrine Gale RN) Pushing Progress: Descent with Pushing; Presenting Part Visible; Pushing Effectively with Contractions (Sandrine Gale RN) Datetime: 11/30/2016 09:36 Dilatation (cm): 10.0 (Sandrine Gale RN) Effacement (%): 100 (Sandrine Gale RN) Station: 1 (Sandrine Gale RN) Exam by: Barby Briceno CNM (Sandrine Gale RN) Communication Comments: RN to remain at bedside continuously monitoring FHR and adjusting monitors (Sandrine Gale RN) Datetime: 11/30/2016 09:34 Communication: RN at Bedside; Provider at Bedside (Sandrine Gale RN) Datetime: 11/30/2016 09:30 Monitor Mode: External; Palpation (Sandrine Gale RN) Frequency (min): 2-2.5 (Sandrine Gale RN) Quality: Moderate (Sandrine Gale RN) Duration (sec): 50-60 (Sandrine Gale, RN) Duration Criteria: Less than Two 120 Second Contractions (Sandrine Gale, RN) Pattern: Normal: <= 5 Contractions in 10 Minutes (Sandrine Gale, RN) Resting Tone (Palpate): Relaxed (Sandrine Gale RN) Monitor Mode: External US (Sandrine Gale RN) FHR Baseline Rate : 150 (Sandrine Gale, RN) Variability: Moderate 6-25 bpm (Sandrine Gale, RN) Accelerations: 10X10 (Sandrine Gale, RN) Decelerations: Variable (Sandrine Gale, RN) Datetime: 11/30/2016 09:27 NBP Sys/Samia/Mean (mmHg): 137 (QS system process) : 61 (QS system process) : 88 (QS system process) Pulse: 85 (QS system process) LaborFlag: Antepartum (QS system process) Datetime: 11/30/2016 09:15 Monitor Mode: External; Palpation (Sandrine Gale, RN) Quality: Moderate (Sandrine Gale, RN) Duration Criteria: Less than Two 120 Second Contractions (Sandrine Gale, RN) Pattern: Normal: <= 5 Contractions in 10 Minutes (Sandrine Gale RN) Resting Tone (Palpate): Relaxed (Sandrine Glae, RN) Monitor Mode: External US (Sandrine Gale RN) FHR Baseline Rate : 145 (Sandrine Gale, RN) Variability: Moderate 6-25 bpm (Sandrine Gale, RN) Accelerations: None (Sandrine Gale, RN) Decelerations: Variable (Sandrine Gale RN) Comments: Dr. Robins reviewed patient strip (Sandrine Gale RN) Patient Position/Activity: Hands-Knees (Sandrine Gale, RN) Datetime: 11/30/2016 09:11 Patient Position/Activity: Right Extreme; Low Fowlers (Sandrine Gale, RN) Datetime: 11/30/2016 09:07 Patient Position/Activity: Tailors (Sandrine Gale, RN) Datetime: 11/30/2016 09:05 Monitor Interventions for FHR: FSE Applied (Sandrine Gale, RN) Datetime: 11/30/2016 09:00 Monitor Mode: External; Palpation (Sandrine Gale, RN) Frequency (min): 2-2.5 (Sandrine Gale, RN) Quality: Moderate (Sandrine Gale, RN) Duration (sec): 50-60 (Sandrine Gale, RN) Duration Criteria: Less than Two 120 Second Contractions (Sandrine Gale, RN) Pattern: Normal: <= 5 Contractions in 10 Minutes (Sandrine Gale, RN) Resting Tone (Palpate): Relaxed (Sandrine Gale, RN) Monitor Mode: External US (Sandrine Gale, RN) FHR Baseline Rate : 150 (Sandrine Gale, RN) Variability: Minimal - Undetectable to <=5 bpm (Sandrine Gale, RN) Accelerations: None (Sandrine Gale, RN) Decelerations: Early; Variable (Sandrine Baljinder, RN) Datetime: 11/30/2016 08:59 Dilatation (cm): 9.5 (Sandrine Gale RN) Effacement (%): 100 (Sandrine Gale RN) Station: 0 (Sandrine Gale RN) Exam by: Barby Briceno CNM (Sandrine Gale RN) Membrane Status: Ruptured (Sandrine Gale RN) Membranes Rupture Method: Artificial (Sandrine Gale RN) Amniotic Fluid Color: Heavy Meconium (Sandrine Gale RN) Amniotic Fluid Amount: Moderate (Sandrine Gale RN) Datetime: 11/30/2016 08:56 NBP Sys/Samia/Mean (mmHg): 131 (QS system process) : 68 (QS system process) : 91 (QS system process) Pulse: 76 (QS system process) LaborFlag: Antepartum (QS system process) Datetime: 11/30/2016 08:53 Actions for Decelerations: Side to Side (Sandrine Gale RN) Oxygen Method: Non-Rebreather (Sandrine Gale RN) Patient Position/Activity: Right Extreme (Sandrine Gale RN) Datetime: 11/30/2016 08:45 Monitor Mode: External; Palpation (Sandrine Gale RN) Quality: Moderate (Sandrine Gale RN) Pattern: Normal: <= 5 Contractions in 10 Minutes (Sandrine Gale RN) Resting Tone (Palpate): Relaxed (Sandrine Gale RN) Contraction Comments: toco unable to trace due to patient being in hands and knees patient in hands and knees, RN at bedside (Sandrine Gale, KSENIA) Monitor Mode: External US (Sandrine Gale RN) FHR Baseline Rate : 150 (Sandrine Gale RN) Variability: Moderate 6-25 bpm (Sandrine Gale RN) Accelerations: None (Sandrine Gale RN) Comments: unable to determine deceleration type due to patient in hands and knees, RN at bedside (Sandrine Gale RN) Datetime: 11/30/2016 08:41 NBP Sys/Samia/Mean (mmHg): 131 (QS system process) : 67 (QS system process) : 93 (QS system process) Pulse: 88 (QS system process) LaborFlag: Antepartum (QS system process) Datetime: 11/30/2016 08:30 Monitor Mode: External; Palpation (Sandrine Gale RN) Resting Tone (Palpate): Relaxed (Sandrine Gale RN) Contraction Comments: unable to trace contractions due to patient position, RN at bedside palpating abdomen and adjusting monitors. Abdomen relaxed between contractions (Sandrine Gale RN) Monitor Mode: External US (Sandrine Gale RN) FHR Baseline Rate : 145 (Sandrine Gale RN) Variability: Minimal - Undetectable to <=5 bpm (Sandrine Gale RN) Accelerations: 15X15 (Sandrine Gale RN) Decelerations: None (Sandrine Gale RN) Datetime: 11/30/2016 08:26 NBP Sys/Samia/Mean (mmHg): 127 (QS system process) : 61 (QS system process) : 88 (QS system process) Pulse: 78 (QS system process) LaborFlag: Antepartum (QS system process) Datetime: 11/30/2016 08:15 Monitor Mode: External; Palpation (Sandrine Gale RN) Quality: Moderate (Sandrine Gale RN) Duration Criteria: Less than Two 120 Second Contractions (Sandrine Gale RN) Pattern: Normal: <= 5 Contractions in 10 Minutes (Sandrine Gale RN) Resting Tone (Palpate): Relaxed (Sandrine Gale RN) Contraction Comments: unable to trace contractions due to patient moving side to side for FHR decelerations. RN at bedside adjusting monitors and palpating abdomen, abdomen relaxed during contractions (Sandrine Gale RN) Monitor Mode: External US (Sandrine Gale RN) FHR Baseline Rate : 140 (Sandrine Gale RN) Variability: Moderate 6-25 bpm (Sandrine Gale RN) Accelerations: 15X15 (Sandrine Gale RN) Decelerations: Late; Variable (Sandrine Gale RN) Actions for Decelerations: Side to Side; Hands and Knees; Oxygen Applied; IV Bolus; Blood Pressure (Sandrine Gale RN) Communication: Provider at Bedside (Sandrine Gale RN) Communication Comments: Dr. Robins reviewed patient's strip (Sandrine Gale RN) Datetime: 11/30/2016 08:13 Medication Comments: Ephedrine 5 mg (Sandrine Gale, RN) Datetime: 11/30/2016 08:11 NBP Sys/Samia/Mean (mmHg): 116 (QS system process) : 62 (QS system process) : 83 (QS system process) Pulse: 77 (QS system process) Comments: O2 removed (Sandrine Gale, RN) LaborFlag: Antepartum (QS system process) Datetime: 11/30/2016 08:08 NBP Sys/Samia/Mean (mmHg): 127 (QS system process) : 64 (QS system process) : 89 (QS system process) Pulse: 78 (QS system process) LaborFlag: Antepartum (QS system process) Datetime: 11/30/2016 08:05 Patient Position/Activity: Hands-Knees (Sandrine Baljinder, RN) Datetime: 11/30/2016 08:04 Medication Comments: Ephedrine 5 mg (Sandrine Baljinder, RN) Patient Position/Activity: Left Extreme (Sandrine Baljinder, RN) Datetime: 11/30/2016 08:02 Actions for Decelerations: Oxygen Applied (Sandrine Baljinder, RN) Datetime: 11/30/2016 08:01 Patient Position/Activity: Right Extreme (Sandrine Gale RN) Datetime: 11/30/2016 08:00 NBP Sys/Samia/Mean (mmHg): 126 (QS system process) : 67 (QS system process) : 92 (QS system process) Pulse: 89 (QS system process) Monitor Mode: External; Palpation (Sandrine Gale RN) Frequency (min): 1.5-2 (Sandrine Gale RN) Quality: Moderate (Sandrine Gale RN) Duration (sec): 50-60 (Sandrine Gale RN) Duration Criteria: Less than Two 120 Second Contractions (Sandrine Gale RN) Pattern: Normal: <= 5 Contractions in 10 Minutes (Sandrine Gale RN) Resting Tone (Palpate): Relaxed (Sandrine Gale RN) Monitor Mode: External US (Sandrine Gale RN) FHR Baseline Rate : 125 (Sandrine Gale RN) Variability: Moderate 6-25 bpm (Sandrine Gale RN) Accelerations: None (Sandrine Gale RN) Decelerations: Prolonged (Sandrine Gale RN) Actions for Decelerations: Side to Side; Hands and Knees; Oxygen Applied; IV Bolus; Blood Pressure (Sandrine Gale RN) Oxygen Method: Non-Rebreather (Sandrine Gale RN) Patient Position/Activity: Left Extreme (Sandrine Gale RN) LaborFlag: Antepartum (QS system process)
[2016-11-30] MEDS: PRENATAL VITAMIN W-O CA NO5/FE FUMARATE/FA CAPSULE PO SCH (12:51)
[2016-11-30] MEDS: SENNOSIDES/DOCUSATE 8.6-50 MG 1 EACH TABLET PO SCH (12:51)
[2016-11-30] MEDS: DOCUSATE SODIUM 100 MG CAPSULE PO SCH ×2 (12:51→17:35)
[2016-11-30] MEDS: FERROUS SULFATE 325 MG TABLET PO SCH ×2 (12:51→17:35)
[2016-11-30] MEDS: IBUPROFEN 800 MG TABLET PO SCH ×2 (13:37→21:19)
--- NOTE | 2016-11-30 19:00 | L&D Flow Sheet ---
LD Flowsheet Datetime Report Generated by CPN: 11/30/2016 19:00 Datetime: 11/30/2016 11:20 NBP Sys/Samia/Mean (mmHg): 125 (QS system process) : 58 (QS system process) : 84 (QS system process) Pulse: 71 (QS system process) Datetime: 11/30/2016 10:56 NBP Sys/Samia/Mean (mmHg): 116 (QS system process) : 65 (QS system process) : 87 (QS system process) Pulse: 90 (QS system process) Datetime: 11/30/2016 10:41 NBP Sys/Samia/Mean (mmHg): 116 (QS system process) : 62 (QS system process) : 81 (QS system process) Pulse: 71 (QS system process) Datetime: 11/30/2016 10:26 NBP Sys/Samia/Mean (mmHg): 120 (QS system process) : 64 (QS system process) : 86 (QS system process) Pulse: 86 (QS system process) Datetime: 11/30/2016 10:17 Communication Comments: Sarita Bowen RN at bedside (Sandrine Gale RN) Datetime: 11/30/2016 10:12 NBP Sys/Samia/Mean (mmHg): 131 (QS system process) : 72 (QS system process) : 86 (QS system process) Pulse: 90 (QS system process) Datetime: 11/30/2016 10:05 Stage of : Recovery (Sandrine Gale RN) Respirations: 16 (Sandrine Gale RN) Temperature (F): 98.2 (Sandrine Gale RN) Temperature (C): 36.8 (QS system process) Temperature Route: Oral (Sandrine Gale RN) Pain Scale: 1 (Sandrine Gale RN) Pain Presence: Constant (Sandrine Gale RN) Pain Type: Burning (Sandrine Gale RN) Pain Location: Perineum (Sandrine Gale RN) Pain Goal: 1 (Sandrine Gale RN) Pain Relief Measures: Comfort Measures (Sandrine Gale RN) Datetime: 11/30/2016 09:56 NBP Sys/Samia/Mean (mmHg): 129 (QS system process) : 60 (QS system process) : 86 (QS system process) Pulse: 96 (QS system process) LaborFlag: Antepartum (QS system process) Datetime: 11/30/2016 09:54 NBP Sys/Samia/Mean (mmHg): 131 (QS system process) : 63 (QS system process) : 91 (QS system process) Pulse: 95 (QS system process) LaborFlag: Antepartum (QS system process) Datetime: 11/30/2016 09:42 Stage 2 Comments: Delivery liveborn male spontaneous lusty cry noted (Sandrine Gale RN) Datetime: 11/30/2016 09:38 Provider Reviewed Strip: Yes (Sandrine Gale RN) Communication: RN at Bedside; Provider at Bedside (Sandrine Gale RN) Communication Comments: Mariah Briceno CNM and Dr Robins present at bedside for delivery. Nursery staff Blanco Blue present at bedside for delivery (Sandrine Gale RN) Datetime: 11/30/2016 09:37 Pushing: Coached on Pushing; Urge to Push (Sandrine Gale RN) Pushing Position: Pushing with Contractions; Pushing Lithotomy (Sandrine Gale RN) Pushing Progress: Descent with Pushing; Presenting Part Visible; Pushing Effectively with Contractions (Sandrine Gale RN) Datetime: 11/30/2016 09:36 Dilatation (cm): 10.0 (Sandrine Gale RN) Effacement (%): 100 (Sandrine Gale RN) Station: 1 (Sandrine Gale RN) Exam by: Barby Briceno CNM (Sandrine Gale RN) Communication Comments: RN to remain at bedside continuously monitoring FHR and adjusting monitors (Sandrine Gale RN) Datetime: 11/30/2016 09:34 Communication: RN at Bedside; Provider at Bedside (Sandrine Gale RN) Datetime: 11/30/2016 09:30 Monitor Mode: External; Palpation (Sandrine Gale RN) Frequency (min): 2-2.5 (Sandrine Gale RN) Quality: Moderate (Sandrine Gale RN) Duration (sec): 50-60 (Sandrine Gale, RN) Duration Criteria: Less than Two 120 Second Contractions (Sandrine Gale, RN) Pattern: Normal: <= 5 Contractions in 10 Minutes (Sandrine Gale, RN) Resting Tone (Palpate): Relaxed (Sandrine Gale RN) Monitor Mode: External US (Sandrine Gale RN) FHR Baseline Rate : 150 (Sandrine Gale, RN) Variability: Moderate 6-25 bpm (Sandrine Gale, RN) Accelerations: 10X10 (Sandrine Gale, RN) Decelerations: Variable (Sandrine Gale, RN) Datetime: 11/30/2016 09:27 NBP Sys/Samia/Mean (mmHg): 137 (QS system process) : 61 (QS system process) : 88 (QS system process) Pulse: 85 (QS system process) LaborFlag: Antepartum (QS system process) Datetime: 11/30/2016 09:15 Monitor Mode: External; Palpation (Sandrine Gale, RN) Quality: Moderate (Sandrine Gale, RN) Duration Criteria: Less than Two 120 Second Contractions (Sandrine Gale, RN) Pattern: Normal: <= 5 Contractions in 10 Minutes (Sandrine Gale RN) Resting Tone (Palpate): Relaxed (Sandrine Gale, RN) Monitor Mode: External US (Sandrine Gale RN) FHR Baseline Rate : 145 (Sandrine Gale, RN) Variability: Moderate 6-25 bpm (Sandrine Gale, RN) Accelerations: None (Sandrine Gale, RN) Decelerations: Variable (Sandrine Gale RN) Comments: Dr. Robins reviewed patient strip (Sandrine Gale RN) Patient Position/Activity: Hands-Knees (Sandrine Gale, RN) Datetime: 11/30/2016 09:11 Patient Position/Activity: Right Extreme; Low Fowlers (Sandrine Gale, RN) Datetime: 11/30/2016 09:07 Patient Position/Activity: Tailors (Sandrine Gale, RN) Datetime: 11/30/2016 09:05 Monitor Interventions for FHR: FSE Applied (Sandrine Gale, RN) Datetime: 11/30/2016 09:00 Monitor Mode: External; Palpation (Sandrine Gale, RN) Frequency (min): 2-2.5 (Sandrine Gale, RN) Quality: Moderate (Sandrine Gale, RN) Duration (sec): 50-60 (Sandrine Gale, RN) Duration Criteria: Less than Two 120 Second Contractions (Sandrine Gale, RN) Pattern: Normal: <= 5 Contractions in 10 Minutes (Sandrine Gale, RN) Resting Tone (Palpate): Relaxed (Sandrine Gale, RN) Monitor Mode: External US (Sandrine Gale, RN) FHR Baseline Rate : 150 (Sandrine Gale, RN) Variability: Minimal - Undetectable to <=5 bpm (Sandrine Gale, RN) Accelerations: None (Sandrine Gale, RN) Decelerations: Early; Variable (Sandrine Baljinder, RN) Datetime: 11/30/2016 08:59 Dilatation (cm): 9.5 (Sandrine Gale RN) Effacement (%): 100 (Sandrine Gale RN) Station: 0 (Sandrine Gale RN) Exam by: Barby Briceno CNM (Sandrine Gale RN) Membrane Status: Ruptured (Sandrine Gale RN) Membranes Rupture Method: Artificial (Sandrine Gale RN) Amniotic Fluid Color: Heavy Meconium (Sandrine Gale RN) Amniotic Fluid Amount: Moderate (Sandrine Gale RN) Datetime: 11/30/2016 08:56 NBP Sys/Samia/Mean (mmHg): 131 (QS system process) : 68 (QS system process) : 91 (QS system process) Pulse: 76 (QS system process) LaborFlag: Antepartum (QS system process) Datetime: 11/30/2016 08:53 Actions for Decelerations: Side to Side (Sandrine Gale RN) Oxygen Method: Non-Rebreather (Sandrine Gale RN) Patient Position/Activity: Right Extreme (Sandrine Gale RN) Datetime: 11/30/2016 08:45 Monitor Mode: External; Palpation (Sandrine Gale RN) Quality: Moderate (Sandrine Gale RN) Pattern: Normal: <= 5 Contractions in 10 Minutes (Sandrine Gale RN) Resting Tone (Palpate): Relaxed (Sandrine Gale RN) Contraction Comments: toco unable to trace due to patient being in hands and knees patient in hands and knees, RN at bedside (Sandrine Gale, KSENIA) Monitor Mode: External US (Sandrine Gale RN) FHR Baseline Rate : 150 (Sandrine Gale RN) Variability: Moderate 6-25 bpm (Sandrine Gale RN) Accelerations: None (Sandrine Gale RN) Comments: unable to determine deceleration type due to patient in hands and knees, RN at bedside (Sandrine Gale RN) Datetime: 11/30/2016 08:41 NBP Sys/Samia/Mean (mmHg): 131 (QS system process) : 67 (QS system process) : 93 (QS system process) Pulse: 88 (QS system process) LaborFlag: Antepartum (QS system process) Datetime: 11/30/2016 08:30 Monitor Mode: External; Palpation (Sandrine Gale RN) Resting Tone (Palpate): Relaxed (Sandrine Gale RN) Contraction Comments: unable to trace contractions due to patient position, RN at bedside palpating abdomen and adjusting monitors. Abdomen relaxed between contractions (Sandrine Gale RN) Monitor Mode: External US (Sandrine Gale RN) FHR Baseline Rate : 145 (Sandrine Gale RN) Variability: Minimal - Undetectable to <=5 bpm (Sandrine Gale RN) Accelerations: 15X15 (Sandrine Gale RN) Decelerations: None (Sandrine Gale RN) Datetime: 11/30/2016 08:26 NBP Sys/Samia/Mean (mmHg): 127 (QS system process) : 61 (QS system process) : 88 (QS system process) Pulse: 78 (QS system process) LaborFlag: Antepartum (QS system process) Datetime: 11/30/2016 08:15 Monitor Mode: External; Palpation (Sandrine Gale RN) Quality: Moderate (Sandrine Gale RN) Duration Criteria: Less than Two 120 Second Contractions (Sandrine Gale RN) Pattern: Normal: <= 5 Contractions in 10 Minutes (Sandrine Gale RN) Resting Tone (Palpate): Relaxed (Sandrine Gale RN) Contraction Comments: unable to trace contractions due to patient moving side to side for FHR decelerations. RN at bedside adjusting monitors and palpating abdomen, abdomen relaxed during contractions (Sandrine Gale RN) Monitor Mode: External US (Sandrine Gale RN) FHR Baseline Rate : 140 (Sandrine Gale RN) Variability: Moderate 6-25 bpm (Sandrine Gale RN) Accelerations: 15X15 (Sandrine Gale RN) Decelerations: Late; Variable (Sandrine Gale RN) Actions for Decelerations: Side to Side; Hands and Knees; Oxygen Applied; IV Bolus; Blood Pressure (Sandrine Gale RN) Communication: Provider at Bedside (Sandrine Gale RN) Communication Comments: Dr. Robins reviewed patient's strip (Sandrine Gale RN) Datetime: 11/30/2016 08:13 Medication Comments: Ephedrine 5 mg (Sandrine Gale, RN) Datetime: 11/30/2016 08:11 NBP Sys/Samia/Mean (mmHg): 116 (QS system process) : 62 (QS system process) : 83 (QS system process) Pulse: 77 (QS system process) Comments: O2 removed (Sandrine Gale, RN) LaborFlag: Antepartum (QS system process) Datetime: 11/30/2016 08:08 NBP Sys/Samia/Mean (mmHg): 127 (QS system process) : 64 (QS system process) : 89 (QS system process) Pulse: 78 (QS system process) LaborFlag: Antepartum (QS system process) Datetime: 11/30/2016 08:05 Patient Position/Activity: Hands-Knees (Sandrine Baljinder, RN) Datetime: 11/30/2016 08:04 Medication Comments: Ephedrine 5 mg (Sandrine Baljinder, RN) Patient Position/Activity: Left Extreme (Sandrine Baljinder, RN) Datetime: 11/30/2016 08:02 Actions for Decelerations: Oxygen Applied (Sandrine Baljinder, RN) Datetime: 11/30/2016 08:01 Patient Position/Activity: Right Extreme (Sandrine Gale RN) Datetime: 11/30/2016 08:00 NBP Sys/Samia/Mean (mmHg): 126 (QS system process) : 67 (QS system process) : 92 (QS system process) Pulse: 89 (QS system process) Monitor Mode: External; Palpation (Sandrine Gale RN) Frequency (min): 1.5-2 (Sandrine Gale RN) Quality: Moderate (Sandrine Gale RN) Duration (sec): 50-60 (Sandrine Gale RN) Duration Criteria: Less than Two 120 Second Contractions (Sandrine Gale RN) Pattern: Normal: <= 5 Contractions in 10 Minutes (Sandrine Gale RN) Resting Tone (Palpate): Relaxed (Sandrine Gale RN) Monitor Mode: External US (Sandrine Gale RN) FHR Baseline Rate : 125 (Sandrine Gale RN) Variability: Moderate 6-25 bpm (Sandrine Gale RN) Accelerations: None (Sandrine Gale RN) Decelerations: Prolonged (Sandrine Gale RN) Actions for Decelerations: Side to Side; Hands and Knees; Oxygen Applied; IV Bolus; Blood Pressure (Sandrine Gale RN) Oxygen Method: Non-Rebreather (Sandrine Gale RN) Patient Position/Activity: Left Extreme (Sandrine Gale RN) LaborFlag: Antepartum (QS system process) Datetime: 11/30/2016 07:59 IV/Blood Work: IV Bolus Started (Sandrine Baljinder, RN) Datetime: 11/30/2016 07:49 NBP Sys/Samia/Mean (mmHg): 127 (QS system process) : 58 (QS system process) : 83 (QS system process) Pulse: 80 (QS system process) LaborFlag: Antepartum (QS system process) Datetime: 11/30/2016 07:48 NBP Sys/Samia/Mean (mmHg): 131 (QS system process) : 60 (QS system process) : 86 (QS system process) Pulse: 83 (QS system process) LaborFlag: Antepartum (QS system process) Datetime: 11/30/2016 07:47 NBP Sys/Samia/Mean (mmHg): 130 (QS system process) : 58 (QS system process) : 87 (QS system process) Pulse: 90 (QS system process) LaborFlag: Antepartum (QS system process) Datetime: 11/30/2016 07:46 NBP Sys/Samia/Mean (mmHg): 138 (QS system process) : 63 (QS system process) : 91 (QS system process) Pulse: 78 (QS system process) LaborFlag: Antepartum (QS system process) Datetime: 11/30/2016 07:45 NBP Sys/Samia/Mean (mmHg): 137 (QS system process) : 64 (QS system process) : 90 (QS system process) Pulse: 86 (QS system process) Contraction Comments: unable to trace contractions due to patient sitting for epidural, RN at bedside (Sandrine Gale RN) Comments: unable to trace FHR due to patient sitting for epidural, RN at bedside (Sandrine Gale RN) LaborFlag: Antepartum (QS system process) Datetime: 11/30/2016 07:44 NBP Sys/Samia/Mean (mmHg): 141 (QS system process) : 62 (QS system process) : 89 (QS system process) Pulse: 87 (QS system process) LaborFlag: Antepartum (QS system process) Datetime: 11/30/2016 07:43 NBP Sys/Samia/Mean (mmHg): 140 (QS system process) : 63 (QS system process) : 90 (QS system process) Pulse: 86 (QS system process) Epidural Procedure Other: Pump Started (Sandrine Gale RN) LaborFlag: Antepartum (QS system process) Datetime: 11/30/2016 07:42 NBP Sys/Samia/Mean (mmHg): 139 (QS system process) : 60 (QS system process) : 85 (QS system process) Pulse: 88 (QS system process) LaborFlag: Antepartum (QS system process) Datetime: 11/30/2016 07:40 NBP Sys/Samia/Mean (mmHg): 122 (QS system process) : 59 (QS system process) : 83 (QS system process) Pulse: 83 (QS system process) Epidural Procedure: Cath Placed (Sandrine Gale RN) LaborFlag: Antepartum (QS system process) Datetime: 11/30/2016 07:39 Epidural Procedure: Test Dose (Sandrine Baljinder, RN) Datetime: 11/30/2016 07:38 NBP Sys/Samia/Mean (mmHg): 132 (QS system process) : 70 (QS system process) : 91 (QS system process) Pulse: 74 (QS system process) Pulse: 84 (QS system process) SpO2 (%): 91 (QS system process) LaborFlag: Antepartum (QS system process) Datetime: 11/30/2016 07:36 Pulse: 90 (QS system process) SpO2 (%): 99 (QS system process) LaborFlag: Antepartum (QS system process) Datetime: 11/30/2016 07:34 Procedure Verify: Correct Patient Identity; Correct Side and Site are Marked; Accurate Procedure Consent Form; Agreement on Procedure to be Done; Correct Patient Position; Relevant Images and Results are Properly Labeled and Displayed; Addressed Need to Administer Antibiotics or Fluids for Irrigation; Safety Precautions Based on Patient History or Medication Use (Sandrine Gale RN) Anesthesia Plans: Epidural (Sandrine Gale RN) Anesthesia Comments: Dr. Painting at bedside (Sandrine Gale RN) Datetime: 11/30/2016 07:33 Anesthesia Plans: Epidural (Sandrine Gale RN) Epidural Positioning: Sitting (Sandrine Gale RN) Datetime: 11/30/2016 07:32 Procedure Verify: Correct Patient Identity; Correct Side and Site are Marked; Accurate Procedure Consent Form; Agreement on Procedure to be Done; Correct Patient Position; Relevant Images and Results are Properly Labeled and Displayed; Addressed Need to Administer Antibiotics or Fluids for Irrigation; Safety Precautions Based on Patient History or Medication Use (Sandrine Gale RN) Anesthesia Plans: Epidural (Sandrine Gale RN) Datetime: 11/30/2016 07:30 Monitor Mode: External; Palpation (Sandrine Gale RN) Frequency (min): 1.5-2.5 (Sandrine Gale RN) Quality: Moderate (Sandrine Gale RN) Duration (sec): 60-70 (Sandrine Gale RN) Duration Criteria: Less than Two 120 Second Contractions (Sandrine Gale RN) Pattern: Normal: <= 5 Contractions in 10 Minutes (Sandrine Gale RN) Resting Tone (Palpate): Relaxed (Sandrine Gale RN) Monitor Mode: External US (Sandrine Gale RN) FHR Baseline Rate : 140 (Sandrine Gale RN) Variability: Moderate 6-25 bpm (Sandrine Gale RN) Accelerations: None (Sandrine Gale RN) Decelerations: None (Sandrine Gale RN) Datetime: 11/30/2016 07:25 Communication: Report Given to Lg Gale RN (Dolly Horta, RN) Datetime: 11/30/2016 07:00 Monitor Mode: External; Palpation (Dolly Horta, RN) Frequency (min): 1-1.5 (Dolly Horta, RN) Quality: Mild/Moderate (Dolly Horta, RN) Duration (sec): 50-70 (Dolly Ledgerwood, RN) Duration Criteria: Less than Two 120 Second Contractions (Dolly Jessicagerwood, RN) Pattern: Normal: <= 5 Contractions in 10 Minutes (Dolly Ledgerwood, RN) Resting Tone (Palpate): Relaxed (Dolly Jessicagerkarlos, RN) Monitor Mode: External US (Dolly Horta, RN) FHR Baseline Rate : 135 (Dolly Ledgerwood, RN) FHR Baseline Changes: No Baseline Change (Dolly Ledgerwood, RN) Variability: Moderate 6-25 bpm (Dolly Ledgerwood, RN) Accelerations: 10X10 (Dolly Ledgerwood, RN) Decelerations: None (Dolly Ledgerwood, RN)
[2016-12-01] MEDS: IBUPROFEN 800 MG TABLET PO SCH ×3 (05:11→21:31)
--- NOTE | 2016-12-01 06:03 | L&D General Admission ---
General Admit Datetime Report Generated by CPN: 12/01/2016 06:00 INFORMATION Patient Age: 26 (06/28/2016 18:07:QS system process) EDC: 12/04/2016 00:00 (11/17/2016 13:01:Sandrine Gale RN) : 8 (11/17/2016 13:01:Iraida Sarabia RN) Para: 2 (11/17/2016 13:01:Sandrine Gale RN) Term: 2 (11/17/2016 13:01:Iraida Sarabia RN) : 0 (11/17/2016 13:01:Iraida Sarabia RN) Spontaneous Abortions: 3 (11/17/2016 13:01:Iraida Sarabia RN) Induced Abortions: 2 (11/17/2016 13:01:Iraida Sarabia RN) Livin (11/17/2016 13:01:Iraida Sarabia RN) Cesareans: 0 (11/17/2016 13:01:Iraida Sarabia RN) VBACs: 0 (11/17/2016 13:01:Iraida Sarabia RN) Ectopic: 0 (11/17/2016 13:01:Iraida Sarabia RN) Multiple Births: 0 (11/17/2016 13:01:Iraida Sarabia RN) Baby, Number in Womb: 1 (11/17/2016 16:12:Sandrine Gale RN) CARE Primary Repair Service Dispatcher: [facility] (11/17/2016 13:01:Sandrine Gale RN) Adequate Care: No (11/17/2016 13:01:Iraida Sarabia RN) Prepregnancy Weight (lb): 132 (11/17/2016 13:01:Iraida Sarabia RN) Prepregnancy Weight (kg): 60.0 (11/17/2016 13:01:QS system process) Height (in): 60 (06/28/2016 18:07:QS system process) ALLERGIES Medication Allergy: No (11/17/2016 13:01:Sandrine Gale RN) Medication Allergies: No Known Allergies (11/17/2016) (11/17/2016 16:18:QS system process) Latex Allergy: No Latex Allergies (11/17/2016 13:01:Sandrine Gale RN) Food Allergies: n/a (11/17/2016 13:01:Sandrine Gale RN) Environmental Allergies: n/a (11/17/2016 13:01:Sandrine Gale RN) COMMUNICATION Primary Language: Ghanaian (11/17/2016 13:01:Sandrine Gale RN) Medical Tx Preferred Language: Ghanaian (11/17/2016 13:01:Sandrine Gale RN) Communication Barrier(s): None (11/17/2016 13:01:Iraida Sarabia RN) DEMOGRAPHICS Address: [address] [place] [address] EDNA PALACIOS [address] [address] (07/12/2016 12:07:QS system process) Zipcode: [address] (06/28/2016 18:07:QS system process) Home (07/12/2016 12:07:QS system process) Work (07/12/2016 12:07:QS system process) SSN: [id number] (06/28/2016 18:07:QS system process) Next of Kin Name: VANESSA CONNOR (07/12/2016 12:07:QS system process) Next of Kin (06/28/2016 18:07:QS system process) Next of Kin Relationship: OR (06/28/2016 18:07:QS system process) Date of : 1990 (06/28/2016 18:07:QS system process) Marital Status: Single (06/28/2016 18:07:QS system process) Sex: Female (06/28/2016 18:07:QS system process) Race: (06/28/2016 18:07:QS system process) Ethnicity: Non- or (06/28/2016 18:07:QS system process) Yazidism: None (06/28/2016 18:07:QS system process) FOB Involved: Yes (11/17/2016 13:01:Dolly Horta RN) DRUG AND ALCOHOL USE Alcohol: No (11/17/2016 13:01:Sandrine Gale RN) Cigarettes: Never Smoker. [id number] (11/17/2016 13:01:Sandrine Gale RN) Marijuana: No (11/17/2016 13:01:Sandrine Gale RN) Cocaine: No (11/17/2016 13:01:Sandrine Gale RN) Other Illicit Drugs: No (11/17/2016 13:01:Sandrine Gale RN) Avionics Test Technician: [facility] (11/17/2016 13:01:Sandrine Gale RN) Feeding Preference: Both (11/17/2016 13:01:Sandrine Gale RN) Benefit of Breast Feed Discussed: Yes (11/17/2016 13:01:Sandrine Gale RN) Circumcision: Yes (11/17/2016 13:01:Sandrine Gale RN) Classes Attended: No (11/17/2016 13:01:Sandrine Gale RN) Tubal Ligation: No (11/17/2016 13:01:Sandrine Gale RN) Tubal Authorization Signed: N/A (11/17/2016 13:01:Sandrine Gale RN) Consent: N/A (11/17/2016 13:01:Sandrine Gale RN) Consent Signed: N/A (11/17/2016 13:01:Sandrine Gale RN) Pain Management Plans: Epidural (11/17/2016 13:01:Sandrine Gale RN) Plans for Labor and Delivery: None (11/17/2016 13:01:Sandrine Gale RN) Support Person: Vanessa Connor (11/17/2016 13:01:Sandrine Gale RN) Support Person Relationship: Friend (11/17/2016 13:01:Sandrine Gale RN) Cultural/Spritual Practice: No (11/17/2016 13:01:Sandrine Gale RN) Spir/Cult Dietary Needs: No (11/17/2016 13:01:Sandrine Gale RN) LIVING SITUATION/DISCHARGE PLAN Living Arrangements: Apartment (11/17/2016 13:01:Sandrine Gale RN) Adequate Access to:: Electric; Heat; Refrigeration; Plumbing/Running water; Phone; Transportation (11/17/2016 13:01:Sandrine Gale RN) WIC Program: Needs referral (11/17/2016 13:01:Sandrine Gale RN) Currently Using Commun Resources: No (11/17/2016 13:01:Sandrine Gale RN) Outside Agency/Recruitment Consultant: No (11/17/2016 13:01:Sandrine Gale RN) Car Seat for Discharge: No (11/17/2016 13:01:Sandrine Gale RN) Adoption Requested: No (11/17/2016 13:01:Sandrine Gale RN) Pt Contact w/ Post : N/A (11/17/2016 13:01:Sandrine Gale RN) LABS Blood Type: A Positive (11/17/2016 13:01:Iraida Sarabia RN) Antibody Screen: Negative (11/17/2016 13:01:Iraida Sarabia RN) Rho(G) this : Not Applicable (11/17/2016 13:01:Iraida Sarabia RN) Hemoglobin: 11.1 L (11/29/2016 23:10:QS system process) Hematocrit: 33.3 L (11/29/2016 23:10:QS system process) MCV: 80 (11/29/2016 23:10:QS system process) Group Beta Strep: Negative (11/17/2016 13:01:Iraida Sarabia RN) Gonorrhea: Negative (11/17/2016 13:01:Iraida Sarabia RN) Chlamydia: Negative (11/17/2016 13:01:Iraida Sarabia RN) RPR/VDRL: Nonreactive (11/17/2016 13:01:Iraida Sarabia RN) HIV Results: Negative (11/17/2016 13:01:Iraida Sarabia RN) Hepatitis B: Negative (11/17/2016 13:01:Iraida Sarabia RN) Rubella: Immune (11/17/2016 13:01:Iraida Sarabia RN) OB/PREVIOUS HISTORY Previous Procedures: Ultrasound; NST (11/17/2016 13:01:Sandrine Gale RN) Current Procedures: Ultrasound; NST (11/17/2016 13:01:Sandrine Gale RN) History of Previous : No (11/17/2016 13:01:Sandrine Gale RN) History of Gestational Diabetes: Yes (11/17/2016 13:01:Iraida Sarabia RN) History of PIH: No (11/17/2016 13:01:Sandrine Gale RN) History of Incompetent Cervix: No (11/17/2016 13:01:Sandrine Gale RN) History of Placenta Previa/Abrup: No (11/17/2016 13:01:Sandrine Gale RN) History of Macrosomia: No (11/17/2016 13:01:Sandrine Gale RN) History of IUGR: No (11/17/2016 13:01:Sandrine Gale RN) History of Hemorrhage: No (11/17/2016 13:01:Sandrine Gale RN) History of Loss/Stillborn: No (11/17/2016 13:01:Sandrine Gale RN) History of : No (11/17/2016 13:01:Sandrine Gale RN) History of D (Rh) Sensitization: No (11/17/2016 13:01:Sandrine Gale RN) History Recurrent Loss/Stillborn: No (11/17/2016 13:01:Sandrine Gale RN) History Depression/PP Depression: No (11/17/2016 13:01:Sandrine Gale RN) History of Uterine Anomaly/BOSTON: No (11/17/2016 13:01:Sandrine Gale RN) History of Infertility: No (11/17/2016 13:01:Sandrine Gale RN) History of ART Treatment: No (11/17/2016 13:01:Sandrine Gale RN) History of BOSTON: No (11/17/2016 13:01:Sandrine Gale RN) Comments Obstetrical History: G1-EAB in 2002 G2-EAB in 2003 G3- in 2005 female @ 39wks 7lbs 13 oz G4-SAB in 2007 G5-SAB in 2009 G6-SAB in 2009 G7- in 2013 male @ 38wks 7lbs 11 oz G8-Current (11/17/2016 13:01:Iraida Sarabia RN) MEDICAL HISTORY Med Hx Diabetes: Yes (11/17/2016 13:01:Iraida Sarabia RN) Diabetes Type: Gestational Diabetes (11/17/2016 13:01:Iraida Sarabia RN) Med Hx Hypertension: No (11/17/2016 13:01:Sandrine Gale RN) Med Hx Heart Disease: No (11/17/2016 13:01:Sandrine Gale RN) Med Hx Autoimmune Disorder: No (11/17/2016 13:01:Sandrine Gale RN) Med Hx Kidney Disease/UTI: No (11/17/2016 13:01:Sandrine Gale RN) Med Hx Neurologic/Epilepsy: No (11/17/2016 13:01:Sandrine Gale RN) Med Hx Psychiatric Disorders: No (11/17/2016 13:01:Sandrine Gale RN) Med Hx Hepatitis/Liver Disease: No (11/17/2016 13:01:Sandrine Gale RN) Med Hx Varicosities/Phlebitis: No (11/17/2016 13:01:Sandrine Gale RN) Med Hx Thyroid Dysfunction: No (11/17/2016 13:01:Sandrine Gale RN) Med Hx Trauma/Violence: No (11/17/2016 13:01:Sandrine Gale RN) Med Hx Blood Transfusion: No (11/17/2016 13:01:Sandrine Gale RN) Med Hx Pulmonary (Asthma,TB): No (11/17/2016 13:01:Sandrine Gale RN) Med Hx Breast: No (11/17/2016 13:01:Sandrine Gale RN) Med Hx VOCATIONAL NURSE Surgery: No (11/17/2016 13:01:Sandrine Gale RN) Med Hx Hospitalization/Surgery: Yes (11/17/2016 13:01:Sandrine Gale RN) Med Hx Anesthetic Complications: No (11/17/2016 13:01:Sandrine Gale RN) Med Hx Abnormal Pap Smear: No (11/17/2016 13:01:Sandrine Gale RN) Other Medical Diseases: No (11/17/2016 13:01:Sandrine Gale RN) Med Hx Significant Family Hx: No (11/17/2016 13:01:Sandrine Gale RN) Details of Med/Surg Hx: Childbirth, GDM (11/17/2016 13:01:Iraida Sarabia RN) INFECTIOUS HISTORY Inf Hx Gonorrhea: No (11/17/2016 13:01:Sandrine Gale RN) Inf Hx Chlamydia: Yes (11/17/2016 13:01:Sandrine Gale RN) Inf Hx Syphilis: No (11/17/2016 13:01:Sandrine Gale RN) Inf Hx HIV/AIDS: No (11/17/2016 13:01:Sandrine Gale RN) Inf Hx Human Papilloma Virus: No (11/17/2016 13:01:Sandrine Gale RN) Inf Hx Pt/Partner Genital Herpes: No (11/17/2016 13:01:Sandrine Gale RN) Inf Hx Tuberculosis/Exposure: No (11/17/2016 13:01:Sandrine Gale RN) Inf Hx Hepatitis B,C: No (11/17/2016 13:01:Sandrine Gale RN) Inf Hx Rash or Viral Illness: No (11/17/2016 13:01:Sandrine Gale RN) Details of Infectious Hx: chlamydia 2004 (11/17/2016 13:01:Sandrine Gale RN) GENETIC HISTORY Gen Hx Age >=35 at HERMILA: No (11/17/2016 13:01:Sandrine Gale RN) Gen Hx Thalassemia: No (11/17/2016 13:01:Sandrine Gale RN) Gen Hx Congenital Heart Defect: No (11/17/2016 13:01:Sandrine Gale RN) Gen Hx Neural Tube Defect: No (11/17/2016 13:01:Sandrine Gale RN) Gen Hx Down's Syndrome: No (11/17/2016 13:01:Sandrine Gale RN) Gen Hx Darius-Sachs: No (11/17/2016 13:01:Sandrine Gale RN) Gen Hx Vidal: No (11/17/2016 13:01:Sandrine Gale RN) Gen Hx Familial Dysautonomia: No (11/17/2016 13:01:Sandrine Gale RN) Gen Hx Sickle Cell Disease/Trait: No (11/17/2016 13:01:Sandrine Gale RN) Gen Hx Hemophilia/Blood Disorder: No (11/17/2016 13:01:Sandrine Gale RN) Gen Hx Muscular Dystrophy: No (11/17/2016 13:01:Sandrine Gale RN) Gen Hx Cystic Fibrosis: No (11/17/2016 13:01:Sanrdine Gale RN) Gen Hx Huntingtons Chorea: No (11/17/2016 13:01:Sandrine Gale RN) Gen Hx Mental Retardation/Autism: No (11/17/2016 13:01:Sandrine Gale RN) Gen Hx Tested for Fragile X: No (11/17/2016 13:01:Sandrine Gale RN) Gen Hx Other Inher/Chromosomal: No (11/17/2016 13:01:Sandrine Gale RN) Gen Hx Maternal Metabolic DO: No (11/17/2016 13:01:Sandrine Gale RN) Gen Hx Pt Father or FOB Defect: No (11/17/2016 13:01:Sandrine Gale RN) Gen Hx Other Genetic History: No (11/17/2016 13:01:Sandrine Gale RN) Gen Hx Drugs/Meds since LMP: No (11/17/2016 13:01:Sandrine Gale RN)
--- NOTE | 2016-12-01 06:03 | L&D Current Admission ---
Current Admit Datetime Report Generated by CPN: 12/01/2016 06:00 ADMISSION INFORMATION Current Admit Date/Time: 11/30/2016 00:09 (11/30/2016 00:09:Dolly Horta RN) Reason for Admission: Induction of Labor (11/30/2016 00:09:Dolly Horta RN) Chief Complaint: Scheduled Induction of Labor (11/30/2016 00:09:Dolly Horta RN) EGA per Dates: 39.3 (11/30/2016 00:09:QS system process) Method of Arrival: Wheelchair (11/30/2016 00:09:Dolly Horta RN) Admitted From: Home (11/30/2016 00:09:Dolly Horta RN) Records Available: Yes (11/30/2016 00:09:Dolly Horta RN) General Admission Information: Reviewed (11/30/2016 00:09:Dolly Horta RN) BELONGINGS/ADVANCED DIRECTIVES Valuables/Personal Effects: None (11/30/2016 00:09:Dolly Horta RN) Other Belongings: see belonging consent (11/30/2016 00:09:Dolly Horta RN) Disposition of Belongings: Kept with Patient (11/30/2016 00:09:Dolly Horta RN) Durable Power of Product Safety Coordinator: No (11/30/2016 00:09:Dolly Horta RN) Living Will: No (11/30/2016 00:09:Dolly Horta RN) Organ Donor: Yes (11/30/2016 00:09:Dolly Horta RN) Pt Rights Information Given: Yes (11/30/2016 00:09:Dolly Horta RN) Pt Understands Pt Rights: Yes (11/30/2016 00:09:Dolly Horta RN) LEARNING ASSESSMENT Knowledge Level: Understands L_D Process; Understands Care Activities; Had Pre-Hospital Education; Understands Diagnosis (11/30/2016 00:09:Dolly Horta RN) Barriers to Learning: None (11/30/2016 00:09:Dolly Horta RN) Learning Readiness: Motivated (11/30/2016 00:09:Dolly Horta RN) Learns Best By: 1 to 1 Instruction (11/30/2016 00:09:Dolly Horta RN) Learning Needs: Labor and Delivery Process; Pain Management; Symptoms to Report; Treatment Plan; Medication; Diagnosis; Nutrition; Equipment; Care; Community Resources (11/30/2016 00:09:Dolly Horta RN) DOMESTIC VIOLANCE SCREENING Dom Viol Threatened/Hurt: No (11/30/2016 00:09:Dolly Horta RN) Hx of Abuse/Neglect past 2yrs: No (11/30/2016 00:09:Dolly Horta RN) Feel Unsafe Going Home: No (11/30/2016 00:09:Dolly Horta RN) Addt'l Observ Indicating Abuse: No (11/30/2016 00:09:Dolly Horta RN) Reason Unable to Complete Screen: N/A, Screen Completed (11/30/2016 00:09:Dolly Horta RN) Considered Personal Harm/Suicide: No (11/30/2016 00:09:Dolly Horta RN) NUTRITIONAL/FUNCTIONAL SCREENING Problem with Appetite >5 Days: No (11/30/2016 00:09:Dolly Horta RN) Chew/Swallow Difficulties: No (11/30/2016 00:09:Dolly Horta RN) Inappropriate Wt Gain/Loss: No (11/30/2016 00:09:Dolly Horta RN) Presence Skin Breakdown/Ulcer: No (11/30/2016 00:09:Dolly Horta RN) Special Diet: No (11/30/2016 00:09:Dolly Horta RN) Pt Requests Braiding Machine Operator Visit: No (11/30/2016 00:09:Dolly Horta RN) Hx of Any of the Following?: N/A (11/30/2016 00:09:Dolly Horta RN) New Diagnosis of: N/A (11/30/2016 00:09:Dolly Horta RN) Requires Assist w/Ambulation: No (11/30/2016 00:09:Dolly Horta RN) Uses Assist Device to Ambulate: No (11/30/2016 00:09:Dolly Horta RN) Pt Requires Help w/ADL's: No (11/30/2016 00:09:Dolly Horta RN)
--- NOTE | 2016-12-01 06:23 | L&D Care Plan ---
LD CARE PLANS Datetime Report Generated by CPN: 12/01/2016 06:15 Datetime: 11/29/2016 22:46 Pain State: Risk For (Iraida Sarabia RN) Related To: Labor and Delivery Process; Treatment and Procedures; Post (Iraida Sarabia RN) Goal(s): Patients Pain will be Assessed and Managed; Patient will Verbalize Adequate Relief of Pain or the Ability to [place] with Current Pain (Iraida Sarabia RN) Interventions: Assess Pain Severity on Scale of 0 (None) to 5 (Severe); Assess Type, Location and Intensity of Pain Each Time Client Reports Discomfort and Notify Provider if Unusal Pain Develops; Encourage Proper Breathing and Relaxation Techniques; Offer Alternatives Such as Repositioning, Calm Environment, Massages, Diversional Activities, Ice Pack, Splinting, and Ambulation; Administer Analgesics as Ordered; Assist with Epidural Placement as Appropriate; Evaluate Therapeutic Effectiveness of Medication and Treatments (Iraida Sarabia RN) Outcome: Patient will Report Absence or Relief of Pain Consistent with Established Pain Goal (Iraida Sarabia RN) Status: Ongoing (Iraida Sarabia RN) Outcome: Patient will have a Decrease in Signs and Symptoms of Discomfort (Iraida Sarabia RN) Status: Ongoing (Iraida Sarabia RN) Outcome: Pain will be Controlled During Procedures (Iraida Sarabia RN) Status: Ongoing (Iraida Sarabia RN) Anxiety State: Risk For (Iraida Sarabia RN) Related To: Labor and Delivery Process; Perceived or Actual Threat to ; Fear of Unknown; Significant Life Event (Iraida Sarabia RN) Goal(s): Patient will have Decreased Anxiety and be able to Function at Acceptable Levels (Iraida Sarabia RN) Interventions: Assess Verbal and Nonverbal Behavioral Indicators of Anxiety; Assist Patient to Identify and Verbalize Symptoms of Anxiety; Identify and Demonstrate Techniques to Control Anxiety; Assist Patient with Coping Mechanisms to Manage Anxiety; Provide Theraputic Touch for the Patient; Explain to Patient, Using a Calm Reassuring Approach and Nonmedical Terms, All Activities, Procedures, and Concerns; Instruct Patient and Family about Post Discharge Care, Limitations, Symptoms to Report and Resources Available (Iraida Sarabia RN) Outcome: Patient will Identify, Verbalize and Demonstrate Techniques to Control Anxiety (Iraida Sarabia RN) Status: Ongoing (Iraida Sarabia RN) Outcome: Patient's Posture, Facial Expressions, Gestures and Activity Level will Reflect Decreased Anxiety (Iraida Sarabia RN) Status: Ongoing (Iraida Sarabia RN) Outcome: Patient will Verbalize a Sense of Control and/or Acceptance of the Situation (Iraida Sarabia RN) Status: Ongoing (Iraida Sarabia RN) Outcome: Patient will Identify and Utilize Support Person (Iraida Sarabia RN) Status: Ongoing (Iraida Sarabia RN) Knowledge Deficit State: Actual (Dolly Horta RN) Related To: Labor and Delivery Process (Dolly Horta RN) Goal(s): Patient will Accurately Verbalize Understanding of Plan of Care and Treatment; Patient and Family will Accurately Verbalize Understanding of the Disease Process (Dolly Horta RN) Interventions: Assess Motivation and Willingness of Patient/Family to Learn; Assess Preferred Learning Mode: One to One Instruction, Reading, Videos, Group Discussion or Demonstration; Assess Barriers to Learning: Pain, Emotional State, Language Barrier, Cognitive Impairment, Visual or Hearing Deficits; Assess Patient and Family Knowledge of Disease Process, Medications and Treatment; Discuss Therapy and/or Treatment Options, Describe Rationale Behind Management, Therapy and Treatment Recommendations; Instruct Patient and Family on Signs and Symptoms to Report; Instruct Patient and Family on Medication Effects and Side Effects; Provide Appropriate and Timely Education Using Multiple Techniques; Provide Patient and Family with Support Group Information and Resources; Give Clear and Thorough Explanations and Demonstrations (Dolly Horta RN) Outcome: Patient and Family will Verbalize Understanding of Condition, Treatment and Signs and Symptoms to Report (Dolly Horta RN) Status: Ongoing (Dolly Horta RN) Outcome: Patient will Identify Perceived Learning Needs and Express Motivation to Learn (Dolly Horta RN) Status: Ongoing (Dolly Horta RN) Outcome: Patient will Verbalize Understanding of Desired Content, and/or Performs Desired Skill Prior to Discharge (Dolly Horta RN) Status: Ongoing (Dolly Horta RN) Infection State: Risk For (Dolly Horta RN) Related To: Prolonged Labor or Induction; Premature/Prolonged Rupture of Membranes (Dolly Horta RN) Goal(s): The Patient will be Free of Infection, Vital Signs Stable and Lab Work within Normal Parameters (Dolly Horta RN) Interventions: Instruct and Reinforce Proper Handwashing, Hygiene, and Care Techniques to Patient and Family; Monitor Vital Signs; Monitor Patient for the Following Signs of Infection: Fever, Abdominal Tenderness, Unusual Discharge; Monitor Aminiotic Fluid, Urine and Lochia for Color and Odor; Observe Wounds, Incisions and Invasive Line Sites for Redness, Drainage and Edema; Assess IV Sites per Hospital Policy; Monitor Lab and Test Results and Notify Provider of Abnormal Findings; Assess Nutritional Status and Promote Good Nutrition (Dolly Horta RN) Outcome: Patient will Remain Free of Infection (Dolly Horta RN) Status: Ongoing (Dolly Horta RN) Outcome: Infection will be Recognized Early to Allow for Prompt Treatment (Dolly Horta RN) Status: Ongoing (Dolly Horta RN) Outcome: Patient will have Vital Signs Within Expected Range (Dolly Horta RN) Status: Ongoing (Dolly Horta RN) Fluid Volume State: Risk For (Dolly Horta RN) Related To: Prolonged Labor or Induction (Dolly Horta RN) Goal(s): Patient will Achieve and Maintain a Balanced Fluid Volume Status (Dolly Horta RN) Interventions: Monitor Vital Signs; Auscultate Breath Sounds; Monitor Patient for Skin Turgor, Mucous Membranes, Dry Skin, Weakness, Headaches and Confusion; Provide Oral Fluids as Ordered; Initiate and Maintain Intravenous Fluids as Ordered; Monitor Intake and Output as Indicated Per Patient Status; Accurately Measure Blood Loss; Monitor Lab and Test Results as Obtained and Notify Provider of Abnormal Findings; Monitor Patient's Weight (Dolly Horta RN) Outcome: Patient will have Clear Lung Sounds (Dolly Horta RN) Status: Ongoing (Dolly Horta RN) Outcome: Patient will have Vital Signs within Expected Range (Dolly Horta RN) Status: Ongoing (Dolly Horta RN) Outcome: Urine Output will be within Expected Range (Dolly Horta RN) Status: Ongoing (Dolly Horta RN) Outcome: Patient will have Minimal Generalized or Upper Extremity Edema (Dolly Horta RN) Status: Ongoing (Dolly Horta RN) Injury State: Risk For (Dolly Horta RN) Related To: Labor and Delivery Process; Anesthesia (Dolly Horta RN) Goal(s): Patient will Remain Free from Injury (Dolly Horta RN) Interventions: Monitoring as per Hospital Protocol; Assess Neurological Status; Perform Risk Assessment of Patients with Induction and ; Perform Fall Risk Assessment and Prevention per Hospital Protocol; Perform DVT Risk Assessment and Prophylaxis per Hospital Protocol; Ensure that Oxygen, Suction, and Resuscitation Medications and Equipment are Readily Available; Confirm Patient ID Prior to Procedure(s) and Medication Administration per Hospital Policy (Dolly Horta RN) Outcome: Successful Fall Risk Prevention (Dolly Horta RN) Status: Ongoing (Dolly Horta RN) Outcome: Patient will Deliver Infant without Adverse Sequela (Dolly Horta RN) Status: Ongoing (Dolly Horta RN) Outcome: Patient's Neurological Status will Remain Stable (Dolly Horta RN) Status: Ongoing (Dolly Horta RN) Impaired Skin Integrity State: Risk For (Dolly Horta RN) Related To: Vaginal Delivery; Prolonged Bedrest (Dolly Horta RN) Goal(s): Patient will Maintain Optimal Skin Integrity, Free of Breakdown, Injury or Infection (Dolly Horta RN) Interventions: Complete Screening for Pressure Ulcer Risk and Initiate Protocol per Hospital Policy; Monitor Site of Skin Impairment for Color Changes, Redness, Swelling, Warmth, Pain or Other Signs of Infection; Encourage and Assist with Position Changes; Monitor Patient's Mobility Status; Provide Adequate Nutrition and Fluids; Teach Patient Appropriate Hygienic Care; Teach Patient/Family Skin Care Management (Dolly Horta RN) Outcome: Patient will not have Evidence of Injury Such as Skin Breakdown, Scrapes, Cuts, or Bruising (Dolly Horta RN) Status: Ongoing (Dolly Horta RN) Outcome: Patient will Report Any Altered Sensation or Pain at Site of Skin Impairment (Dolly Horta RN) Status: Ongoing (Dolly Horta RN) Outcome: Patients Incisions and Wounds will be without Signs or Symptoms of Infection (Dolly Horta RN) Status: Ongoing (Dolly Horta RN) Outcome: Patient will Demonstrate Understanding of Plan to Heal Skin and Prevent Reinjury and Verbalize Risk Factors (Dolly Horta RN) Status: Ongoing (Dolly Horta RN)
[2016-12-01 07:19] LABS: HEMATOCRIT 31.1 % (36.0-47.0); HEMOGLOBIN 10.3 g/dL (12.0-15.5); HGB HCT DIFFERENCE -0.2; MEAN CORPUSCULAR HEMOGLOBIN 26.7 pg (27.0-33.4); MEAN CORPUSCULAR VOLUME 81 fl (80-97); RED BLOOD COUNT 3.85 10^6/uL (3.72-5.28); RED CELL DISTRIBUTION WIDTH 16.5 % (11.5-14.0); WHITE BLOOD COUNT 11.6 10^3/uL (4.0-10.5)
[2016-12-01] MEDS: SENNOSIDES/DOCUSATE 8.6-50 MG 1 EACH TABLET PO SCH (10:16)
[2016-12-01] MEDS: PRENATAL VITAMIN W-O CA NO5/FE FUMARATE/FA CAPSULE PO SCH (10:16)
[2016-12-01] MEDS: FERROUS SULFATE 325 MG TABLET PO SCH ×2 (10:16→17:32)
[2016-12-01] MEDS: DOCUSATE SODIUM 100 MG CAPSULE PO SCH ×2 (10:16→17:32)
--- NOTE | 2016-12-01 12:05 | PDOC PROGRESS REPORT ---
Subjective-OB Subjective: Post Delivery Day: 1 26 year old. Denies any needs at this time, states lochia is stable, pain well controlled, voiding without difficulty. Physical Exam (OB) Vital Signs: Temp Pulse Resp BP Pulse Ox 98.1 F 76 17 117/62 100 12/01/16 07:37 12/01/16 07:37 12/01/16 07:37 12/01/16 07:37 12/01/16 07:37 Intake & Output 11/30/16 12/01/16 12/02/16 06:59 06:59 06:59 Intake Total 400 Balance 400 Weight 73.6 kg - Lochia Lochia Amount: Scant < 10 ml Lochia Color: Rubra/Red - Abdomen Description: Soft, Round Hernia Present: No Fundal Description: Firm, Midline Fundal Height: u/u - u/2 Objective-Diagnostic Laboratory: 12/01/16 07:00 12/01/16 07:00 WBC 11.6 H RBC 3.85 Hgb 10.3 L Hct 31.1 L MCV 81 MCH 26.7 L MCHC 33.0 RDW 16.5 H Plt Count 319 Assessment and Plan(PN) - Assessment and Plan (1) Delivery normal Is this a current diagnosis for this admission?: YesPlan: routine pp care - Time Spent with Patient Time with patient: Less than 15 minutes Critical Time spent with patient: Less than 15 minutes Medications reviewed and adjusted accordingly: Yes - Disposition Anticipated Discharge: Home Within: within 48 hours
[2016-12-02] MEDS: IBUPROFEN 800 MG TABLET PO SCH (05:13)
--- NOTE | 2016-12-02 06:03 | L&D Current Admission ---
Current Admit Datetime Report Generated by CPN: 12/02/2016 06:00 ADMISSION INFORMATION Current Admit Date/Time: 11/30/2016 00:09 (11/30/2016 00:09:Dolly Horta RN) Reason for Admission: Induction of Labor (11/30/2016 00:09:Dolly Horta RN) Chief Complaint: Scheduled Induction of Labor (11/30/2016 00:09:Dolly Horta RN) EGA per Dates: 39.3 (11/30/2016 00:09:QS system process) Method of Arrival: Wheelchair (11/30/2016 00:09:Dolly Horta RN) Admitted From: Home (11/30/2016 00:09:Dolly Horta RN) Records Available: Yes (11/30/2016 00:09:Dolly Horta RN) General Admission Information: Reviewed (11/30/2016 00:09:Dolly Horta RN) BELONGINGS/ADVANCED DIRECTIVES Valuables/Personal Effects: None (11/30/2016 00:09:Dolly Horta RN) Other Belongings: see belonging consent (11/30/2016 00:09:Dolly Horta RN) Disposition of Belongings: Kept with Patient (11/30/2016 00:09:Dolly Horta RN) Durable Power of Getterer: No (11/30/2016 00:09:Dolly Horta RN) Living Will: No (11/30/2016 00:09:Dolly Horta RN) Organ Donor: Yes (11/30/2016 00:09:Dolly Horta RN) Pt Rights Information Given: Yes (11/30/2016 00:09:Dolly Horta RN) Pt Understands Pt Rights: Yes (11/30/2016 00:09:Dolly Horta RN) LEARNING ASSESSMENT Knowledge Level: Understands L_D Process; Understands Care Activities; Had Pre-Hospital Education; Understands Diagnosis (11/30/2016 00:09:Dolly Horta RN) Barriers to Learning: None (11/30/2016 00:09:Dolly Horta RN) Learning Readiness: Motivated (11/30/2016 00:09:Dolly Horta RN) Learns Best By: 1 to 1 Instruction (11/30/2016 00:09:Dolly Horta RN) Learning Needs: Labor and Delivery Process; Pain Management; Symptoms to Report; Treatment Plan; Medication; Diagnosis; Nutrition; Equipment; Care; Community Resources (11/30/2016 00:09:Dolly Horta RN) DOMESTIC VIOLANCE SCREENING Dom Viol Threatened/Hurt: No (11/30/2016 00:09:Dolly Horta RN) Hx of Abuse/Neglect past 2yrs: No (11/30/2016 00:09:Dolly Horta RN) Feel Unsafe Going Home: No (11/30/2016 00:09:Dolly Horta RN) Addt'l Observ Indicating Abuse: No (11/30/2016 00:09:Dolly Horta RN) Reason Unable to Complete Screen: N/A, Screen Completed (11/30/2016 00:09:Dolly Horta RN) Considered Personal Harm/Suicide: No (11/30/2016 00:09:Dolly Horta RN) NUTRITIONAL/FUNCTIONAL SCREENING Problem with Appetite >5 Days: No (11/30/2016 00:09:Dolly Horta RN) Chew/Swallow Difficulties: No (11/30/2016 00:09:Dolly Horat RN) Inappropriate Wt Gain/Loss: No (11/30/2016 00:09:Dolly Horta RN) Presence Skin Breakdown/Ulcer: No (11/30/2016 00:09:Dolly Horta RN) Special Diet: No (11/30/2016 00:09:Dolly Horta RN) Pt Requests Chief Ii Dispatcher Visit: No (11/30/2016 00:09:Dolly Horta RN) Hx of Any of the Following?: N/A (11/30/2016 00:09:Dolly Horta RN) New Diagnosis of: N/A (11/30/2016 00:09:Dolly Horta RN) Requires Assist w/Ambulation: No (11/30/2016 00:09:Dolly Horta RN) Uses Assist Device to Ambulate: No (11/30/2016 00:09:Dolly Horta RN) Pt Requires Help w/ADL's: No (11/30/2016 00:09:Dolly Horta RN)
--- NOTE | 2016-12-02 06:03 | L&D General Admission ---
General Admit Datetime Report Generated by CPN: 12/02/2016 06:00 INFORMATION Patient Age: 26 (06/28/2016 18:07:QS system process) EDC: 12/04/2016 00:00 (11/17/2016 13:01:Sandrine Gale RN) : 8 (11/17/2016 13:01:Iraida Sarabia RN) Para: 2 (11/17/2016 13:01:Sandrine Gale RN) Term: 2 (11/17/2016 13:01:Iraida Sarabia RN) : 0 (11/17/2016 13:01:Iraida Sarabia RN) Spontaneous Abortions: 3 (11/17/2016 13:01:Iraida Sarabia RN) Induced Abortions: 2 (11/17/2016 13:01:Iraida Sarabia RN) Livin (11/17/2016 13:01:Iraida Sarabia RN) Cesareans: 0 (11/17/2016 13:01:Iraida Sarabia RN) VBACs: 0 (11/17/2016 13:01:Iraida Sarabia RN) Ectopic: 0 (11/17/2016 13:01:Iraida Sarabia RN) Multiple Births: 0 (11/17/2016 13:01:Iraida Sarabia RN) Baby, Number in Womb: 1 (11/17/2016 16:12:Sandrine Gale RN) CARE Primary Snuff Grinder And Screener: [facility] (11/17/2016 13:01:Sandrine Gale RN) Adequate Care: No (11/17/2016 13:01:Iraida Sarabia RN) Prepregnancy Weight (lb): 132 (11/17/2016 13:01:Iraida Sarabia RN) Prepregnancy Weight (kg): 60.0 (11/17/2016 13:01:QS system process) Height (in): 60 (06/28/2016 18:07:QS system process) ALLERGIES Medication Allergy: No (11/17/2016 13:01:Sandrine Gale RN) Medication Allergies: No Known Allergies (11/17/2016) (11/17/2016 16:18:QS system process) Latex Allergy: No Latex Allergies (11/17/2016 13:01:Sandrine Gale RN) Food Allergies: n/a (11/17/2016 13:01:Sandrine Gale RN) Environmental Allergies: n/a (11/17/2016 13:01:Sandrine Gale RN) COMMUNICATION Primary Language: Burkinan (11/17/2016 13:01:Sandrine Gale RN) Medical Tx Preferred Language: Burkinan (11/17/2016 13:01:Sandrine Gale RN) Communication Barrier(s): None (11/17/2016 13:01:Iraida Sarabia RN) DEMOGRAPHICS Address: [address] [place] [address] E[place] PALACIOS [address] [address] (07/12/2016 12:07:QS system process) Zipcode: [address] (06/28/2016 18:07:QS system process) Home (07/12/2016 12:07:QS system process) Work (07/12/2016 12:07:QS system process) SSN: [id number] (06/28/2016 18:07:QS system process) Next of Kin Name: VANESSA CONNOR (07/12/2016 12:07:QS system process) Next of Kin (06/28/2016 18:07:QS system process) Next of Kin Relationship: OR (06/28/2016 18:07:QS system process) Date of : 1990 (06/28/2016 18:07:QS system process) Marital Status: Single (06/28/2016 18:07:QS system process) Sex: Female (06/28/2016 18:07:QS system process) Race: (06/28/2016 18:07:QS system process) Ethnicity: Non- or (06/28/2016 18:07:QS system process) Scientology: None (06/28/2016 18:07:QS system process) FOB Involved: Yes (11/17/2016 13:01:Dolly Horta RN) DRUG AND ALCOHOL USE Alcohol: No (11/17/2016 13:01:Sandrine Gale RN) Cigarettes: Never Smoker. [id number] (11/17/2016 13:01:Sandrine Gale RN) Marijuana: No (11/17/2016 13:01:Sandrine Gale RN) Cocaine: No (11/17/2016 13:01:Sandrine Gale RN) Other Illicit Drugs: No (11/17/2016 13:01:Sandrine Gale RN) Content Management Consultant: [facility] (11/17/2016 13:01:Sandrine Gale RN) Feeding Preference: Both (11/17/2016 13:01:Sandrine Gale RN) Benefit of Breast Feed Discussed: Yes (11/17/2016 13:01:Sandrine Gale RN) Circumcision: Yes (11/17/2016 13:01:Sandrine Gale RN) Classes Attended: No (11/17/2016 13:01:Sandrine Gale RN) Tubal Ligation: No (11/17/2016 13:01:Sandrine Gale RN) Tubal Authorization Signed: N/A (11/17/2016 13:01:Sandrine Gale RN) Consent: N/A (11/17/2016 13:01:Sandrine Gale RN) Consent Signed: N/A (11/17/2016 13:01:Sandrine Gale RN) Pain Management Plans: Epidural (11/17/2016 13:01:Sandrine Gale RN) Plans for Labor and Delivery: None (11/17/2016 13:01:Sandrine Gale RN) Support Person: Vanessa Connor (11/17/2016 13:01:Sandrine Gale RN) Support Person Relationship: Friend (11/17/2016 13:01:Sandrine Gale RN) Cultural/Spritual Practice: No (11/17/2016 13:01:Sandrine Gale RN) Spir/Cult Dietary Needs: No (11/17/2016 13:01:Sandrine Gale RN) LIVING SITUATION/DISCHARGE PLAN Living Arrangements: Apartment (11/17/2016 13:01:Sandrine Gale RN) Adequate Access to:: Electric; Heat; Refrigeration; Plumbing/Running water; Phone; Transportation (11/17/2016 13:01:Sandrine Gale RN) WIC Program: Needs referral (11/17/2016 13:01:Sandrine Gale RN) Currently Using Commun Resources: No (11/17/2016 13:01:Sandrine Gale RN) Outside Agency/Drug Safety Coordinator: No (11/17/2016 13:01:Sandrine Gale RN) Car Seat for Discharge: No (11/17/2016 13:01:Sandrine Gale RN) Adoption Requested: No (11/17/2016 13:01:Sandrine Gale RN) Pt Contact w/ Post : N/A (11/17/2016 13:01:Sandrine Gale RN) LABS Blood Type: A Positive (11/17/2016 13:01:Iraida Sarabia RN) Antibody Screen: Negative (11/17/2016 13:01:Iraida Sarabia RN) Rho(G) this : Not Applicable (11/17/2016 13:01:Iraida Sarabia RN) Hemoglobin: 10.3 L (12/01/2016 07:00:QS system process) Hematocrit: 31.1 L (12/01/2016 07:00:QS system process) MCV: 81 (12/01/2016 07:00:QS system process) Group Beta Strep: Negative (11/17/2016 13:01:Iraida Sarabia RN) Gonorrhea: Negative (11/17/2016 13:01:Iriada Sarabia RN) Chlamydia: Negative (11/17/2016 13:01:Iraida Sarabia RN) RPR/VDRL: Nonreactive (11/17/2016 13:01:Iraida Sarabia RN) HIV Results: Negative (11/17/2016 13:01:Iraida Sarabia RN) Hepatitis B: Negative (11/17/2016 13:01:Iraida Sarabia RN) Rubella: Immune (11/17/2016 13:01:Iraida Sarabia RN) OB/PREVIOUS HISTORY Previous Procedures: Ultrasound; NST (11/17/2016 13:01:Sandrine Gale RN) Current Procedures: Ultrasound; NST (11/17/2016 13:01:Sandrine Gale RN) History of Previous : No (11/17/2016 13:01:Sandrine Gale RN) History of Gestational Diabetes: Yes (11/17/2016 13:01:Iraida Sarabia RN) History of PIH: No (11/17/2016 13:01:Sandrine Gale RN) History of Incompetent Cervix: No (11/17/2016 13:01:Sandrine Gale RN) History of Placenta Previa/Abrup: No (11/17/2016 13:01:Sandrine Gale RN) History of Macrosomia: No (11/17/2016 13:01:Sandrine Gale RN) History of IUGR: No (11/17/2016 13:01:Sandrine Gale RN) History of Hemorrhage: No (11/17/2016 13:01:Sandrine Gale RN) History of Loss/Stillborn: No (11/17/2016 13:01:Sandrine Gale RN) History of : No (11/17/2016 13:01:Sandrine Gale RN) History of D (Rh) Sensitization: No (11/17/2016 13:01:Sandrine Gale RN) History Recurrent Loss/Stillborn: No (11/17/2016 13:01:Sandrine Gale RN) History Depression/PP Depression: No (11/17/2016 13:01:Sandrine Gale RN) History of Uterine Anomaly/BOSTON: No (11/17/2016 13:01:Sandrine Gale RN) History of Infertility: No (11/17/2016 13:01:Sandrine Gale RN) History of ART Treatment: No (11/17/2016 13:01:Sandrine Gale RN) History of BOSTON: No (11/17/2016 13:01:Sandrine Gale RN) Comments Obstetrical History: G1-EAB in 2002 G2-EAB in 2003 G3- in 2005 female @ 39wks 7lbs 13 oz G4-SAB in 2007 G5-SAB in 2009 G6-SAB in 2009 G7- in 2013 male @ 38wks 7lbs 11 oz G8-Current (11/17/2016 13:01:Iraida Sarabia RN) MEDICAL HISTORY Med Hx Diabetes: Yes (11/17/2016 13:01:Iraida Sarabia RN) Diabetes Type: Gestational Diabetes (11/17/2016 13:01:Iraida Sarabia RN) Med Hx Hypertension: No (11/17/2016 13:01:Sandrine Gale RN) Med Hx Heart Disease: No (11/17/2016 13:01:Sandrine Gale RN) Med Hx Autoimmune Disorder: No (11/17/2016 13:01:Sandrine Gale RN) Med Hx Kidney Disease/UTI: No (11/17/2016 13:01:Sandrine Gale RN) Med Hx Neurologic/Epilepsy: No (11/17/2016 13:01:Sandrine Gale RN) Med Hx Psychiatric Disorders: No (11/17/2016 13:01:Sandrine Gale RN) Med Hx Hepatitis/Liver Disease: No (11/17/2016 13:01:Sandrine Gale RN) Med Hx Varicosities/Phlebitis: No (11/17/2016 13:01:Sandrine Gale RN) Med Hx Thyroid Dysfunction: No (11/17/2016 13:01:Sandrine Gale RN) Med Hx Trauma/Violence: No (11/17/2016 13:01:Sandrine Gale RN) Med Hx Blood Transfusion: No (11/17/2016 13:01:Sandrine aGle RN) Med Hx Pulmonary (Asthma,TB): No (11/17/2016 13:01:Sandrine Gale RN) Med Hx Breast: No (11/17/2016 13:01:Sandrine Gale RN) Med Hx FARM IMPLEMENT ENGINE MECHANIC Surgery: No (11/17/2016 13:01:Sandrine Gale RN) Med Hx Hospitalization/Surgery: Yes (11/17/2016 13:01:Sandrine Gale RN) Med Hx Anesthetic Complications: No (11/17/2016 13:01:Sandrine Gale RN) Med Hx Abnormal Pap Smear: No (11/17/2016 13:01:Sandrine Gale RN) Other Medical Diseases: No (11/17/2016 13:01:Sandrine Gale RN) Med Hx Significant Family Hx: No (11/17/2016 13:01:Sandrine Gale RN) Details of Med/Surg Hx: Childbirth, GDM (11/17/2016 13:01:Iraida Sarabia RN) INFECTIOUS HISTORY Inf Hx Gonorrhea: No (11/17/2016 13:01:Sandrine Gale RN) Inf Hx Chlamydia: Yes (11/17/2016 13:01:Sandrine Gale RN) Inf Hx Syphilis: No (11/17/2016 13:01:Sandrine Gale RN) Inf Hx HIV/AIDS: No (11/17/2016 13:01:Sandrine Gale RN) Inf Hx Human Papilloma Virus: No (11/17/2016 13:01:Sandrine Gale RN) Inf Hx Pt/Partner Genital Herpes: No (11/17/2016 13:01:Sandrine Gale RN) Inf Hx Tuberculosis/Exposure: No (11/17/2016 13:01:Sandrine Gale RN) Inf Hx Hepatitis B,C: No (11/17/2016 13:01:Sandrine Gale RN) Inf Hx Rash or Viral Illness: No (11/17/2016 13:01:Sandrine Gale RN) Details of Infectious Hx: chlamydia 2004 (11/17/2016 13:01:Sandrine Gale RN) GENETIC HISTORY Gen Hx Age >=35 at HERMILA: No (11/17/2016 13:01:Sandrine Gale RN) Gen Hx Thalassemia: No (11/17/2016 13:01:Sandrine Gale RN) Gen Hx Congenital Heart Defect: No (11/17/2016 13:01:Sandrine Gale RN) Gen Hx Neural Tube Defect: No (11/17/2016 13:01:Sandrine Gale RN) Gen Hx Down's Syndrome: No (11/17/2016 13:01:Sandrine Gale RN) Gen Hx Darius-Sachs: No (11/17/2016 13:01:Sandrine Gale RN) Gen Hx Vidal: No (11/17/2016 13:01:Sandrine Gale RN) Gen Hx Familial Dysautonomia: No (11/17/2016 13:01:Sandrine Gale RN) Gen Hx Sickle Cell Disease/Trait: No (11/17/2016 13:01:Sandrine Gale RN) Gen Hx Hemophilia/Blood Disorder: No (11/17/2016 13:01:Sandrine Gale RN) Gen Hx Muscular Dystrophy: No (11/17/2016 13:01:Sandrine Gale RN) Gen Hx Cystic Fibrosis: No (11/17/2016 13:01:Sandrine Gale RN) Gen Hx Huntingtons Chorea: No (11/17/2016 13:01:Sandrine Gale RN) Gen Hx Mental Retardation/Autism: No (11/17/2016 13:01:Sandrine Gale RN) Gen Hx Tested for Fragile X: No (11/17/2016 13:01:Sandrine Gale RN) Gen Hx Other Inher/Chromosomal: No (11/17/2016 13:01:Sandrine Gale RN) Gen Hx Maternal Metabolic DO: No (11/17/2016 13:01:Sandrine Gale RN) Gen Hx Pt Father or FOB Defect: No (11/17/2016 13:01:Sandrine Gale RN) Gen Hx Other Genetic History: No (11/17/2016 13:01:Sandrine Gale RN) Gen Hx Drugs/Meds since LMP: No (11/17/2016 13:01:Sandrine Gale RN)
[2016-12-02 08:33] VITALS: BP 121/64
[2016-12-02] MEDS: SENNOSIDES/DOCUSATE 8.6-50 MG 1 EACH TABLET PO SCH (09:14)
[2016-12-02] MEDS: PRENATAL VITAMIN W-O CA NO5/FE FUMARATE/FA CAPSULE PO SCH (09:15)
[2016-12-02] MEDS: DOCUSATE SODIUM 100 MG CAPSULE PO SCH (09:15)
[2016-12-02] MEDS: FERROUS SULFATE 325 MG TABLET PO SCH (09:16)
--- NOTE | 2016-12-02 10:31 | PDOC DISCHARGE SUMMARY ---
Discharge Summary-OB Discharge Date: 12/02/16 - Final Diagnosis (1) Delivery normal Is this a current diagnosis for this admission?: Yes - Discharge Medication Home Medications: Vit#96/Ferrous Fum/FA [ Tablet] 1 tab PO DAILY 04/14/14 Docusate Sodium [Colace 100 mg Capsule] 100 mg PO BID #60 capsule 12/02/16 Ibuprofen [Motrin 800 mg Tablet] 800 mg PO Q8 #60 tablet 12/02/16 Gestational Age: 39.3 Reason(s) for Admission: Onset of Labor, Gestional Diabetes - limited care Procedures: NST Intrapartum Procedure(s): Spontaneous Vaginal Delivery - Data Baby 1 Male at 1 minute: 8 at 5 minutes: 9 Weight: 3390 kg Home with Mother: Yes Complications: No - Diagnosis Test Laboratory: Temp Pulse Resp BP Pulse Ox 98.2 F 66 16 121/64 99 12/02/16 08:55 12/02/16 08:55 12/02/16 08:55 12/02/16 07:51 12/02/16 08:55 11/29/16 11/29/16 12/01/16 22:49 23:10 07:00 RBC 4.17 3.85 Hgb 11.1 L 10.3 L Hct 33.3 L 31.1 L Urine Opiates Screen NEGATIVE - Discharge information/Instructions Discharge Activity: Activity As Tolerated, No Lifting Over 10 Pounds, Pelvic Rest, No tub bath Discharge Diet: Regular Disposition: HOME, SELF-CARE Follow up with: [facility] in: 4, Weeks
--- NOTE | 2016-12-03 06:03 | L&D General Admission ---
General Admit Datetime Report Generated by CPN: 12/03/2016 06:00 INFORMATION Patient Age: 26 (06/28/2016 18:07:QS system process) EDC: 12/04/2016 00:00 (11/17/2016 13:01:Sandrine Gale RN) : 8 (11/17/2016 13:01:Iraida Sarabia RN) Para: 2 (11/17/2016 13:01:Sandrine Gale RN) Term: 2 (11/17/2016 13:01:Iraida Sarabia RN) : 0 (11/17/2016 13:01:Iraida Sarabia RN) Spontaneous Abortions: 3 (11/17/2016 13:01:Iraida Sarabia RN) Induced Abortions: 2 (11/17/2016 13:01:Iraida Sarabia RN) Livin (11/17/2016 13:01:Iraida Sarabia RN) Cesareans: 0 (11/17/2016 13:01:Iraida Sarabia RN) VBACs: 0 (11/17/2016 13:01:Iraida Sarabia RN) Ectopic: 0 (11/17/2016 13:01:Iraida Sarabia RN) Multiple Births: 0 (11/17/2016 13:01:Iraida Sarabia RN) Baby, Number in Womb: 1 (11/17/2016 16:12:Sandrine Gale RN) CARE Primary Remedy Developer: [facility] (11/17/2016 13:01:Sandrine Gale RN) Adequate Care: No (11/17/2016 13:01:Iraida Sarabia RN) Prepregnancy Weight (lb): 132 (11/17/2016 13:01:Iraida Sarabia RN) Prepregnancy Weight (kg): 60.0 (11/17/2016 13:01:QS system process) Height (in): 60 (06/28/2016 18:07:QS system process) ALLERGIES Medication Allergy: No (11/17/2016 13:01:Sandrine Gale RN) Medication Allergies: No Known Allergies (11/17/2016) (11/17/2016 16:18:QS system process) Latex Allergy: No Latex Allergies (11/17/2016 13:01:Sandrine Gale RN) Food Allergies: n/a (11/17/2016 13:01:Sandrine Gale RN) Environmental Allergies: n/a (11/17/2016 13:01:Sandrine Gale RN) COMMUNICATION Primary Language: Ecuadorean (11/17/2016 13:01:Sandrine Gale RN) Medical Tx Preferred Language: Ecuadorean (11/17/2016 13:01:Sandrine Gale RN) Communication Barrier(s): None (11/17/2016 13:01:Iraida Sarabia RN) DEMOGRAPHICS Address: [address] [place] [address] EDNA PALACIOS [address] [address] (07/12/2016 12:07:QS system process) Zipcode: [address] (06/28/2016 18:07:QS system process) Home (07/12/2016 12:07:QS system process) Work (07/12/2016 12:07:QS system process) SSN: [id number] (06/28/2016 18:07:QS system process) Next of Kin Name: VANESSA CONNOR (07/12/2016 12:07:QS system process) Next of Kin (06/28/2016 18:07:QS system process) Next of Kin Relationship: OR (06/28/2016 18:07:QS system process) Date of : 1990 (06/28/2016 18:07:QS system process) Marital Status: Single (06/28/2016 18:07:QS system process) Sex: Female (06/28/2016 18:07:QS system process) Race: (06/28/2016 18:07:QS system process) Ethnicity: Non- or (06/28/2016 18:07:QS system process) Denominational: None (06/28/2016 18:07:QS system process) FOB Involved: Yes (11/17/2016 13:01:Dolly Horta RN) DRUG AND ALCOHOL USE Alcohol: No (11/17/2016 13:01:Sandrine Gale RN) Cigarettes: Never Smoker. [id number] (11/17/2016 13:01:Sandrine Gale RN) Marijuana: No (11/17/2016 13:01:Sandrine Gale RN) Cocaine: No (11/17/2016 13:01:Sandrine Gale RN) Other Illicit Drugs: No (11/17/2016 13:01:Sandrine Gale RN) Drawing Supervisor: [facility] (11/17/2016 13:01:Sandrine Gale RN) Feeding Preference: Both (11/17/2016 13:01:Sandrine Gale RN) Benefit of Breast Feed Discussed: Yes (11/17/2016 13:01:Sandrine Gale RN) Circumcision: Yes (11/17/2016 13:01:Sandrine Gale RN) Classes Attended: No (11/17/2016 13:01:Sandrine Gale RN) Tubal Ligation: No (11/17/2016 13:01:Sandrine Gale RN) Tubal Authorization Signed: N/A (11/17/2016 13:01:Sandrine Gale RN) Consent: N/A (11/17/2016 13:01:Sandrine Gale RN) Consent Signed: N/A (11/17/2016 13:01:Sandrine Gale RN) Pain Management Plans: Epidural (11/17/2016 13:01:Sandrine Gale RN) Plans for Labor and Delivery: None (11/17/2016 13:01:Sandrine Gale RN) Support Person: Vanessa Connor (11/17/2016 13:01:Sandrine Gale RN) Support Person Relationship: Friend (11/17/2016 13:01:Sandrine Gale RN) Cultural/Spritual Practice: No (11/17/2016 13:01:Sandrine Gale RN) Spir/Cult Dietary Needs: No (11/17/2016 13:01:Sandrine Gale RN) LIVING SITUATION/DISCHARGE PLAN Living Arrangements: Apartment (11/17/2016 13:01:Sandrine Gale RN) Adequate Access to:: Electric; Heat; Refrigeration; Plumbing/Running water; Phone; Transportation (11/17/2016 13:01:Sandrine Gale RN) WIC Program: Needs referral (11/17/2016 13:01:Sandrine Gale RN) Currently Using Commun Resources: No (11/17/2016 13:01:Sandrine Gale RN) Outside Agency/Concrete Buildings Assembler: No (11/17/2016 13:01:Sandrine Gale RN) Car Seat for Discharge: No (11/17/2016 13:01:Sandrine Gale RN) Adoption Requested: No (11/17/2016 13:01:Sandrine Gale RN) Pt Contact w/ Post : N/A (11/17/2016 13:01:Sandrine Gale RN) LABS Blood Type: A Positive (11/17/2016 13:01:Iraida Sarabia RN) Antibody Screen: Negative (11/17/2016 13:01:Iraida Sarabia RN) Rho(G) this : Not Applicable (11/17/2016 13:01:Iraida Sarabia RN) Hemoglobin: 10.3 L (12/01/2016 07:00:QS system process) Hematocrit: 31.1 L (12/01/2016 07:00:QS system process) MCV: 81 (12/01/2016 07:00:QS system process) Group Beta Strep: Negative (11/17/2016 13:01:Iraida Sarabia RN) Gonorrhea: Negative (11/17/2016 13:01:Iraida Sarabia RN) Chlamydia: Negative (11/17/2016 13:01:Iraida Sarabia RN) RPR/VDRL: Nonreactive (11/17/2016 13:01:Iraida Sarabia RN) HIV Results: Negative (11/17/2016 13:01:Iraida Sarabia RN) Hepatitis B: Negative (11/17/2016 13:01:Iraida Sarabia RN) Rubella: Immune (11/17/2016 13:01:Iraida Sarabia RN) OB/PREVIOUS HISTORY Previous Procedures: Ultrasound; NST (11/17/2016 13:01:Sandrine Gale RN) Current Procedures: Ultrasound; NST (11/17/2016 13:01:Sandrine Gale RN) History of Previous : No (11/17/2016 13:01:Sandrine Gale RN) History of Gestational Diabetes: Yes (11/17/2016 13:01:Iraida Sarabia RN) History of PIH: No (11/17/2016 13:01:Sandrine Gale RN) History of Incompetent Cervix: No (11/17/2016 13:01:Sandrine Gale RN) History of Placenta Previa/Abrup: No (11/17/2016 13:01:Sandrine aGle RN) History of Macrosomia: No (11/17/2016 13:01:Sandrine Gale RN) History of IUGR: No (11/17/2016 13:01:Sandrine Gale RN) History of Hemorrhage: No (11/17/2016 13:01:Sandrine Gale RN) History of Loss/Stillborn: No (11/17/2016 13:01:Sandrine Gale RN) History of : No (11/17/2016 13:01:Sandrine Gale RN) History of D (Rh) Sensitization: No (11/17/2016 13:01:Sandrine Gale RN) History Recurrent Loss/Stillborn: No (11/17/2016 13:01:Sandrine Gale RN) History Depression/PP Depression: No (11/17/2016 13:01:Sandrine Gale RN) History of Uterine Anomaly/BOSTON: No (11/17/2016 13:01:Sandrine Gale RN) History of Infertility: No (11/17/2016 13:01:Sandrine Gale RN) History of ART Treatment: No (11/17/2016 13:01:Sandrine Gale RN) History of BOSTON: No (11/17/2016 13:01:Sandrine Gale RN) Comments Obstetrical History: G1-EAB in 2002 G2-EAB in 2003 G3- in 2005 female @ 39wks 7lbs 13 oz G4-SAB in 2007 G5-SAB in 2009 G6-SAB in 2009 G7- in 2013 male @ 38wks 7lbs 11 oz G8-Current (11/17/2016 13:01:Iraida Sarabia RN) MEDICAL HISTORY Med Hx Diabetes: Yes (11/17/2016 13:01:Iraida Sarabia RN) Diabetes Type: Gestational Diabetes (11/17/2016 13:01:Iraida Sarabia RN) Med Hx Hypertension: No (11/17/2016 13:01:Sandrine Gale RN) Med Hx Heart Disease: No (11/17/2016 13:01:Sandrine Gale RN) Med Hx Autoimmune Disorder: No (11/17/2016 13:01:Sandrine Gale RN) Med Hx Kidney Disease/UTI: No (11/17/2016 13:01:Sandrine Gale RN) Med Hx Neurologic/Epilepsy: No (11/17/2016 13:01:Sandrine Gale RN) Med Hx Psychiatric Disorders: No (11/17/2016 13:01:Sandrine Gale RN) Med Hx Hepatitis/Liver Disease: No (11/17/2016 13:01:Sandrine Gale RN) Med Hx Varicosities/Phlebitis: No (11/17/2016 13:01:Sandrine Gale RN) Med Hx Thyroid Dysfunction: No (11/17/2016 13:01:Sandrine Gale RN) Med Hx Trauma/Violence: No (11/17/2016 13:01:Sandrine Gale RN) Med Hx Blood Transfusion: No (11/17/2016 13:01:Sandrine Gale RN) Med Hx Pulmonary (Asthma,TB): No (11/17/2016 13:01:Sandrine Gale RN) Med Hx Breast: No (11/17/2016 13:01:Sandrine Gale RN) Med Hx GARDEN IMPLEMENT MECHANIC Surgery: No (11/17/2016 13:01:Sandrine Gale RN) Med Hx Hospitalization/Surgery: Yes (11/17/2016 13:01:Sandrine Gale RN) Med Hx Anesthetic Complications: No (11/17/2016 13:01:Sandrine Gale RN) Med Hx Abnormal Pap Smear: No (11/17/2016 13:01:Sandrine Gale RN) Other Medical Diseases: No (11/17/2016 13:01:Sandrine Gale RN) Med Hx Significant Family Hx: No (11/17/2016 13:01:Sandrine Gale RN) Details of Med/Surg Hx: Childbirth, GDM (11/17/2016 13:01:Iraida Sarabia RN) INFECTIOUS HISTORY Inf Hx Gonorrhea: No (11/17/2016 13:01:Sandrine Gale RN) Inf Hx Chlamydia: Yes (11/17/2016 13:01:Sandrine Gale RN) Inf Hx Syphilis: No (11/17/2016 13:01:Sandrine Gale RN) Inf Hx HIV/AIDS: No (11/17/2016 13:01:Sandrine Gale RN) Inf Hx Human Papilloma Virus: No (11/17/2016 13:01:Sandrine Gale RN) Inf Hx Pt/Partner Genital Herpes: No (11/17/2016 13:01:Sandrine Gale RN) Inf Hx Tuberculosis/Exposure: No (11/17/2016 13:01:Sandrine Gale RN) Inf Hx Hepatitis B,C: No (11/17/2016 13:01:Sandrine Gale RN) Inf Hx Rash or Viral Illness: No (11/17/2016 13:01:Sandrine Gale RN) Details of Infectious Hx: chlamydia 2004 (11/17/2016 13:01:Sandrine Gale RN) GENETIC HISTORY Gen Hx Age >=35 at HERMILA: No (11/17/2016 13:01:Sandrine Gale RN) Gen Hx Thalassemia: No (11/17/2016 13:01:Sandrine Gale RN) Gen Hx Congenital Heart Defect: No (11/17/2016 13:01:Sandrine Gale RN) Gen Hx Neural Tube Defect: No (11/17/2016 13:01:Sandrine Gale RN) Gen Hx Down's Syndrome: No (11/17/2016 13:01:Sandrine Gale RN) Gen Hx Darius-Sachs: No (11/17/2016 13:01:Sandrine Gale RN) Gen Hx Vidal: No (11/17/2016 13:01:Sandrine Gale RN) Gen Hx Familial Dysautonomia: No (11/17/2016 13:01:Sandrine Gale RN) Gen Hx Sickle Cell Disease/Trait: No (11/17/2016 13:01:Sandrine Gale RN) Gen Hx Hemophilia/Blood Disorder: No (11/17/2016 13:01:Sandrine Gale RN) Gen Hx Muscular Dystrophy: No (11/17/2016 13:01:Sandrine Gale RN) Gen Hx Cystic Fibrosis: No (11/17/2016 13:01:Sandrine Gale RN) Gen Hx Huntingtons Chorea: No (11/17/2016 13:01:Sandrine Gale RN) Gen Hx Mental Retardation/Autism: No (11/17/2016 13:01:Sandrine Gale RN) Gen Hx Tested for Fragile X: No (11/17/2016 13:01:Sandrine Gale RN) Gen Hx Other Inher/Chromosomal: No (11/17/2016 13:01:Sandrine Gale RN) Gen Hx Maternal Metabolic DO: No (11/17/2016 13:01:Sandrine Gale RN) Gen Hx Pt Father or FOB Defect: No (11/17/2016 13:01:Sandrine Gale RN) Gen Hx Other Genetic History: No (11/17/2016 13:01:Sandrine Gale RN) Gen Hx Drugs/Meds since LMP: No (11/17/2016 13:01:Sandrine Gale RN)
--- NOTE | 2016-12-04 06:02 | L&D Current Admission ---
Current Admit Datetime Report Generated by CPN: 12/04/2016 06:00 ADMISSION INFORMATION Current Admit Date/Time: 11/30/2016 00:09 (11/30/2016 00:09:Dolly Horta RN) Reason for Admission: Induction of Labor (11/30/2016 00:09:Dolly Horta RN) Chief Complaint: Scheduled Induction of Labor (11/30/2016 00:09:Dolly Horta RN) EGA per Dates: 39.3 (11/30/2016 00:09:QS system process) Method of Arrival: Wheelchair (11/30/2016 00:09:Dolly Horta RN) Admitted From: Home (11/30/2016 00:09:Dolly Horta RN) Records Available: Yes (11/30/2016 00:09:Dolly Horta RN) General Admission Information: Reviewed (11/30/2016 00:09:Dolly Horta RN) BELONGINGS/ADVANCED DIRECTIVES Valuables/Personal Effects: None (11/30/2016 00:09:Dolly oHrta RN) Other Belongings: see belonging consent (11/30/2016 00:09:Dolly Horta RN) Disposition of Belongings: Kept with Patient (11/30/2016 00:09:Dolly Horta RN) Durable Power of Data Recovery Planner: No (11/30/2016 00:09:Dolly Horta RN) Living Will: No (11/30/2016 00:09:Dolly Horta RN) Organ Donor: Yes (11/30/2016 00:09:Dolly Horta RN) Pt Rights Information Given: Yes (11/30/2016 00:09:Dolly Horta RN) Pt Understands Pt Rights: Yes (11/30/2016 00:09:Dolly Horta RN) LEARNING ASSESSMENT Knowledge Level: Understands L_D Process; Understands Care Activities; Had Pre-Hospital Education; Understands Diagnosis (11/30/2016 00:09:Dolly Horta RN) Barriers to Learning: None (11/30/2016 00:09:Dolly Horta RN) Learning Readiness: Motivated (11/30/2016 00:09:Dolly Horta RN) Learns Best By: 1 to 1 Instruction (11/30/2016 00:09:Dolly Horta RN) Learning Needs: Labor and Delivery Process; Pain Management; Symptoms to Report; Treatment Plan; Medication; Diagnosis; Nutrition; Equipment; Care; Community Resources (11/30/2016 00:09:Dolly Horta RN) DOMESTIC VIOLANCE SCREENING Dom Viol Threatened/Hurt: No (11/30/2016 00:09:Dolly Horta RN) Hx of Abuse/Neglect past 2yrs: No (11/30/2016 00:09:Dolly Horta RN) Feel Unsafe Going Home: No (11/30/2016 00:09:Dolly Horta RN) Addt'l Observ Indicating Abuse: No (11/30/2016 00:09:Dolly Horta RN) Reason Unable to Complete Screen: N/A, Screen Completed (11/30/2016 00:09:Dolly Horta RN) Considered Personal Harm/Suicide: No (11/30/2016 00:09:Dolly Hrota RN) NUTRITIONAL/FUNCTIONAL SCREENING Problem with Appetite >5 Days: No (11/30/2016 00:09:Dolly Horta RN) Chew/Swallow Difficulties: No (11/30/2016 00:09:Dolly Horta RN) Inappropriate Wt Gain/Loss: No (11/30/2016 00:09:Dolly Horta RN) Presence Skin Breakdown/Ulcer: No (11/30/2016 00:09:Dolly Horta RN) Special Diet: No (11/30/2016 00:09:Dolly Horta RN) Pt Requests Relay Engineer Visit: No (11/30/2016 00:09:Dolly Horta RN) Hx of Any of the Following?: N/A (11/30/2016 00:09:Dolly Horta RN) New Diagnosis of: N/A (11/30/2016 00:09:Dolly Horta RN) Requires Assist w/Ambulation: No (11/30/2016 00:09:Dolly Horta RN) Uses Assist Device to Ambulate: No (11/30/2016 00:09:Dolly Horta RN) Pt Requires Help w/ADL's: No (11/30/2016 00:09:Dolly Hotra RN)
--- NOTE | 2016-12-04 06:02 | L&D General Admission ---
General Admit Datetime Report Generated by CPN: 12/04/2016 06:00 INFORMATION Patient Age: 26 (06/28/2016 18:07:QS system process) EDC: 12/04/2016 00:00 (11/17/2016 13:01:Sandrine Gale RN) : 8 (11/17/2016 13:01:Iraida Sarabia RN) Para: 2 (11/17/2016 13:01:Sandrine Gale RN) Term: 2 (11/17/2016 13:01:Iraida Sarabia RN) : 0 (11/17/2016 13:01:Iraida Sarabia RN) Spontaneous Abortions: 3 (11/17/2016 13:01:Iraida Sarabia RN) Induced Abortions: 2 (11/17/2016 13:01:Iraida Sarabia RN) Livin (11/17/2016 13:01:Iraida Sarabia RN) Cesareans: 0 (11/17/2016 13:01:Iraida Sarabia RN) VBACs: 0 (11/17/2016 13:01:Iraida Sarabia RN) Ectopic: 0 (11/17/2016 13:01:Iraida Sarabia RN) Multiple Births: 0 (11/17/2016 13:01:Iraida Sarabia RN) Baby, Number in Womb: 1 (11/17/2016 16:12:Sandrine Gale RN) CARE Primary Combat Engineer: [facility] (11/17/2016 13:01:Sandrine Gale RN) Adequate Care: No (11/17/2016 13:01:Iraida Sarabia RN) Prepregnancy Weight (lb): 132 (11/17/2016 13:01:Iraida Sarabia RN) Prepregnancy Weight (kg): 60.0 (11/17/2016 13:01:QS system process) Height (in): 60 (06/28/2016 18:07:QS system process) ALLERGIES Medication Allergy: No (11/17/2016 13:01:Sandrine Gale RN) Medication Allergies: No Known Allergies (11/17/2016) (11/17/2016 16:18:QS system process) Latex Allergy: No Latex Allergies (11/17/2016 13:01:Sandrine Gale RN) Food Allergies: n/a (11/17/2016 13:01:Sandrine Gale RN) Environmental Allergies: n/a (11/17/2016 13:01:Sandrine Gale RN) COMMUNICATION Primary Language: Bahraini (11/17/2016 13:01:Sandrine Gale RN) Medical Tx Preferred Language: Bahraini (11/17/2016 13:01:Sandrine Gale RN) Communication Barrier(s): None (11/17/2016 13:01:Iraida Sarabia RN) DEMOGRAPHICS Address: [address] [place] [address] EDNA PALACIOS [address] [address] (07/12/2016 12:07:QS system process) Zipcode: [id number] (06/28/2016 18:07:QS system process) Home (07/12/2016 12:07:QS system process) Work (07/12/2016 12:07:QS system process) SSN: [id number] (06/28/2016 18:07:QS system process) Next of Kin Name: VANESSA CONNOR (07/12/2016 12:07:QS system process) Next of Kin (06/28/2016 18:07:QS system process) Next of Kin Relationship: OR (06/28/2016 18:07:QS system process) Date of : 1990 (06/28/2016 18:07:QS system process) Marital Status: Single (06/28/2016 18:07:QS system process) Sex: Female (06/28/2016 18:07:QS system process) Race: (06/28/2016 18:07:QS system process) Ethnicity: Non- or (06/28/2016 18:07:QS system process) Episcopalian: None (06/28/2016 18:07:QS system process) FOB Involved: Yes (11/17/2016 13:01:Dolly Horta RN) DRUG AND ALCOHOL USE Alcohol: No (11/17/2016 13:01:Sandrine Gale RN) Cigarettes: Never Smoker. [id number] (11/17/2016 13:01:Sandrine Gale RN) Marijuana: No (11/17/2016 13:01:Sandrine Gale RN) Cocaine: No (11/17/2016 13:01:Sandrine Gale RN) Other Illicit Drugs: No (11/17/2016 13:01:Sandrine Gale RN) Nurseryperson: [facility] (11/17/2016 13:01:Sandrine Gale RN) Feeding Preference: Both (11/17/2016 13:01:Sandrine Gale RN) Benefit of Breast Feed Discussed: Yes (11/17/2016 13:01:Sandrine Gale RN) Circumcision: Yes (11/17/2016 13:01:Sandrine Gale RN) Classes Attended: No (11/17/2016 13:01:Sandrine Gale RN) Tubal Ligation: No (11/17/2016 13:01:Sandrine Gale RN) Tubal Authorization Signed: N/A (11/17/2016 13:01:Sandrine Gale RN) Consent: N/A (11/17/2016 13:01:Sandrine Gale RN) Consent Signed: N/A (11/17/2016 13:01:Sandrine Gale RN) Pain Management Plans: Epidural (11/17/2016 13:01:Sandrine Gale RN) Plans for Labor and Delivery: None (11/17/2016 13:01:Sandrine Gale RN) Support Person: Vanessa Connor (11/17/2016 13:01:Sandrine Gale RN) Support Person Relationship: Friend (11/17/2016 13:01:Sandrine Gale RN) Cultural/Spritual Practice: No (11/17/2016 13:01:Sandrine Gale RN) Spir/Cult Dietary Needs: No (11/17/2016 13:01:Sandrine Gale RN) LIVING SITUATION/DISCHARGE PLAN Living Arrangements: Apartment (11/17/2016 13:01:Sandrine Gale RN) Adequate Access to:: Electric; Heat; Refrigeration; Plumbing/Running water; Phone; Transportation (11/17/2016 13:01:Sandrine aGle RN) WIC Program: Needs referral (11/17/2016 13:01:Sandrine Gale RN) Currently Using Commun Resources: No (11/17/2016 13:01:Sandrine Gale RN) Outside Agency/Piano Regulator: No (11/17/2016 13:01:Sandrine Gale RN) Car Seat for Discharge: No (11/17/2016 13:01:Sandrine Gale RN) Adoption Requested: No (11/17/2016 13:01:Sandrine Gale RN) Pt Contact w/ Post : N/A (11/17/2016 13:01:Sandrine Gale RN) LABS Blood Type: A Positive (11/17/2016 13:01:Iraida Sarabia RN) Antibody Screen: Negative (11/17/2016 13:01:Iraida Sarabia RN) Rho(G) this : Not Applicable (11/17/2016 13:01:Iraida Sarabia RN) Hemoglobin: 10.3 L (12/01/2016 07:00:QS system process) Hematocrit: 31.1 L (12/01/2016 07:00:QS system process) MCV: 81 (12/01/2016 07:00:QS system process) Group Beta Strep: Negative (11/17/2016 13:01:Iraida Sarabia RN) Gonorrhea: Negative (11/17/2016 13:01:Iraida Sarabia RN) Chlamydia: Negative (11/17/2016 13:01:Iraida Sarabia RN) RPR/VDRL: Nonreactive (11/17/2016 13:01:Iraida Sarabia RN) HIV Results: Negative (11/17/2016 13:01:Iraida Sarabia RN) Hepatitis B: Negative (11/17/2016 13:01:Iraida Sarabia RN) Rubella: Immune (11/17/2016 13:01:Iraida Sarabia RN) OB/PREVIOUS HISTORY Previous Procedures: Ultrasound; NST (11/17/2016 13:01:Sandrine Gale RN) Current Procedures: Ultrasound; NST (11/17/2016 13:01:Sandrine Gale RN) History of Previous : No (11/17/2016 13:01:Sandrine Gale RN) History of Gestational Diabetes: Yes (11/17/2016 13:01:Iraida Sarabia RN) History of PIH: No (11/17/2016 13:01:Sandrine Gale RN) History of Incompetent Cervix: No (11/17/2016 13:01:Sandrine Gale RN) History of Placenta Previa/Abrup: No (11/17/2016 13:01:Sandrine Gale RN) History of Macrosomia: No (11/17/2016 13:01:Sandrine Gale RN) History of IUGR: No (11/17/2016 13:01:Sandrine Gale RN) History of Hemorrhage: No (11/17/2016 13:01:Sandrine Gale RN) History of Loss/Stillborn: No (11/17/2016 13:01:Sandrine Gale RN) History of : No (11/17/2016 13:01:Sandrine Gale RN) History of D (Rh) Sensitization: No (11/17/2016 13:01:Sandrine Gale RN) History Recurrent Loss/Stillborn: No (11/17/2016 13:01:Sandrine Gale RN) History Depression/PP Depression: No (11/17/2016 13:01:Sandrine Gale RN) History of Uterine Anomaly/BOSTON: No (11/17/2016 13:01:Sandrine Gale RN) History of Infertility: No (11/17/2016 13:01:Sandrine Gale RN) History of ART Treatment: No (11/17/2016 13:01:Sandrine Gale RN) History of BOSTON: No (11/17/2016 13:01:Sandrine Gale RN) Comments Obstetrical History: G1-EAB in 2002 G2-EAB in 2003 G3- in 2005 female @ 39wks 7lbs 13 oz G4-SAB in 2007 G5-SAB in 2009 G6-SAB in 2009 G7- in 2013 male @ 38wks 7lbs 11 oz G8-Current (11/17/2016 13:01:Iraida Sarabia RN) MEDICAL HISTORY Med Hx Diabetes: Yes (11/17/2016 13:01:Iraida Sarabia RN) Diabetes Type: Gestational Diabetes (11/17/2016 13:01:Iraida Sarabia RN) Med Hx Hypertension: No (11/17/2016 13:01:Sandrine Gale RN) Med Hx Heart Disease: No (11/17/2016 13:01:Sandrine Gale RN) Med Hx Autoimmune Disorder: No (11/17/2016 13:01:Sandrine Gale RN) Med Hx Kidney Disease/UTI: No (11/17/2016 13:01:Sandrine Gale RN) Med Hx Neurologic/Epilepsy: No (11/17/2016 13:01:Sandrine Gale RN) Med Hx Psychiatric Disorders: No (11/17/2016 13:01:Sandrine Gale RN) Med Hx Hepatitis/Liver Disease: No (11/17/2016 13:01:Sandrine Gale RN) Med Hx Varicosities/Phlebitis: No (11/17/2016 13:01:Sandrine Gale RN) Med Hx Thyroid Dysfunction: No (11/17/2016 13:01:Sandrine Gale RN) Med Hx Trauma/Violence: No (11/17/2016 13:01:Sandrine Gale RN) Med Hx Blood Transfusion: No (11/17/2016 13:01:Sandrine Gale RN) Med Hx Pulmonary (Asthma,TB): No (11/17/2016 13:01:Sandrine Gale RN) Med Hx Breast: No (11/17/2016 13:01:Sandrine Gale RN) Med Hx FULL STACK JAVA DEVELOPER Surgery: No (11/17/2016 13:01:Sandrine Gale RN) Med Hx Hospitalization/Surgery: Yes (11/17/2016 13:01:Sandrine Gale RN) Med Hx Anesthetic Complications: No (11/17/2016 13:01:Sandrine Gale RN) Med Hx Abnormal Pap Smear: No (11/17/2016 13:01:Sandrine Gale RN) Other Medical Diseases: No (11/17/2016 13:01:Sandrine Gale RN) Med Hx Significant Family Hx: No (11/17/2016 13:01:Sandrine Gale RN) Details of Med/Surg Hx: Childbirth, GDM (11/17/2016 13:01:Iraida Sarabia RN) INFECTIOUS HISTORY Inf Hx Gonorrhea: No (11/17/2016 13:01:Sandrine Gale RN) Inf Hx Chlamydia: Yes (11/17/2016 13:01:Sandrine Gale RN) Inf Hx Syphilis: No (11/17/2016 13:01:Sandrine Gale RN) Inf Hx HIV/AIDS: No (11/17/2016 13:01:Sandrine Gale RN) Inf Hx Human Papilloma Virus: No (11/17/2016 13:01:Sandrine Gale RN) Inf Hx Pt/Partner Genital Herpes: No (11/17/2016 13:01:Sandrine Gale RN) Inf Hx Tuberculosis/Exposure: No (11/17/2016 13:01:Sandrine Gale RN) Inf Hx Hepatitis B,C: No (11/17/2016 13:01:Sandrine Gale RN) Inf Hx Rash or Viral Illness: No (11/17/2016 13:01:Sandrine Gale RN) Details of Infectious Hx: chlamydia 2004 (11/17/2016 13:01:Sandrine Gale RN) GENETIC HISTORY Gen Hx Age >=35 at HERMILA: No (11/17/2016 13:01:Sandrine Gale RN) Gen Hx Thalassemia: No (11/17/2016 13:01:Sandrine Gale RN) Gen Hx Congenital Heart Defect: No (11/17/2016 13:01:Sandrine Gale RN) Gen Hx Neural Tube Defect: No (11/17/2016 13:01:Sandrine Gale RN) Gen Hx Down's Syndrome: No (11/17/2016 13:01:Sandrine Gale RN) Gen Hx Darius-Sachs: No (11/17/2016 13:01:Sandrine Gale RN) Gen Hx Vidal: No (11/17/2016 13:01:Sandrine Gale RN) Gen Hx Familial Dysautonomia: No (11/17/2016 13:01:Sandrine Gale RN) Gen Hx Sickle Cell Disease/Trait: No (11/17/2016 13:01:Sandrine Gale RN) Gen Hx Hemophilia/Blood Disorder: No (11/17/2016 13:01:Sandrine Gale RN) Gen Hx Muscular Dystrophy: No (11/17/2016 13:01:Sandrine Gale RN) Gen Hx Cystic Fibrosis: No (11/17/2016 13:01:Sandrine Gale RN) Gen Hx Huntingtons Chorea: No (11/17/2016 13:01:Sandrine Gale RN) Gen Hx Mental Retardation/Autism: No (11/17/2016 13:01:Sandrine Gale RN) Gen Hx Tested for Fragile X: No (11/17/2016 13:01:Sandrine Gale RN) Gen Hx Other Inher/Chromosomal: No (11/17/2016 13:01:Sandrine Gale RN) Gen Hx Maternal Metabolic DO: No (11/17/2016 13:01:Sandrine Gale RN) Gen Hx Pt Father or FOB Defect: No (11/17/2016 13:01:Sandrine Gale RN) Gen Hx Other Genetic History: No (11/17/2016 13:01:Sandrine Gale RN) Gen Hx Drugs/Meds since LMP: No (11/17/2016 13:01:Sandrine Gale RN)
--- NOTE | 2016-12-05 06:02 | L&D General Admission ---
General Admit Datetime Report Generated by CPN: 12/05/2016 06:00 INFORMATION Patient Age: 26 (06/28/2016 18:07:QS system process) EDC: 12/04/2016 00:00 (11/17/2016 13:01:Sandrine Gale RN) : 8 (11/17/2016 13:01:Iraida Sarabia RN) Para: 2 (11/17/2016 13:01:Sandrine Gale RN) Term: 2 (11/17/2016 13:01:Iraida Sarabia RN) : 0 (11/17/2016 13:01:Iraida Sarabia RN) Spontaneous Abortions: 3 (11/17/2016 13:01:Iraida Sarabia RN) Induced Abortions: 2 (11/17/2016 13:01:Iraida Sarabia RN) Livin (11/17/2016 13:01:Iraida Sarabia RN) Cesareans: 0 (11/17/2016 13:01:Iraida Sarabia RN) VBACs: 0 (11/17/2016 13:01:Iraida Sarabia RN) Ectopic: 0 (11/17/2016 13:01:Iraida Sarabia RN) Multiple Births: 0 (11/17/2016 13:01:Iraida Sarabia RN) Baby, Number in Womb: 1 (11/17/2016 16:12:Sandrine Gale RN) CARE Primary Building Equipment Operator: [facility] (11/17/2016 13:01:Sandrine Gale RN) Adequate Care: No (11/17/2016 13:01:Iraida Sarabia RN) Prepregnancy Weight (lb): 132 (11/17/2016 13:01:Iraida Sarabia RN) Prepregnancy Weight (kg): 60.0 (11/17/2016 13:01:QS system process) Height (in): 60 (06/28/2016 18:07:QS system process) ALLERGIES Medication Allergy: No (11/17/2016 13:01:Sandrine Gale RN) Medication Allergies: No Known Allergies (11/17/2016) (11/17/2016 16:18:QS system process) Latex Allergy: No Latex Allergies (11/17/2016 13:01:Sandrine Gale RN) Food Allergies: n/a (11/17/2016 13:01:aSndrine Gale RN) Environmental Allergies: n/a (11/17/2016 13:01:Sandrine Gale RN) COMMUNICATION Primary Language: Saudi Arabian (11/17/2016 13:01:Sandrine Gale RN) Medical Tx Preferred Language: [place] Arabian (11/17/2016 13:01:Sandrine Gale RN) Communication Barrier(s): None (11/17/2016 13:01:Iraida Sarabia RN) DEMOGRAPHICS Address: [address] [place] [address] EDNA PALACIOS [address] [address] (07/12/2016 12:07:QS system process) Zipcode: [address] (06/28/2016 18:07:QS system process) Home (07/12/2016 12:07:QS system process) Work (07/12/2016 12:07:QS system process) SSN: [id number] (06/28/2016 18:07:QS system process) Next of Kin Name: VANESSA CONNOR (07/12/2016 12:07:QS system process) Next of Kin (06/28/2016 18:07:QS system process) Next of Kin Relationship: OR (06/28/2016 18:07:QS system process) Date of : 1990 (06/28/2016 18:07:QS system process) Marital Status: Single (06/28/2016 18:07:QS system process) Sex: Female (06/28/2016 18:07:QS system process) Race: (06/28/2016 18:07:QS system process) Ethnicity: Non- or (06/28/2016 18:07:QS system process) Yarsanism: None (06/28/2016 18:07:QS system process) FOB Involved: Yes (11/17/2016 13:01:Dolly Horta RN) DRUG AND ALCOHOL USE Alcohol: No (11/17/2016 13:01:Sandrine Gale RN) Cigarettes: Never Smoker. [id number] (11/17/2016 13:01:Sandrine Gale RN) Marijuana: No (11/17/2016 13:01:Sandrine Gale RN) Cocaine: No (11/17/2016 13:01:Sandrine Gale RN) Other Illicit Drugs: No (11/17/2016 13:01:Sandrine Gale RN) Bench Mechanic: [facility] (11/17/2016 13:01:Sandrine Gale RN) Feeding Preference: Both (11/17/2016 13:01:Sandrine Gale RN) Benefit of Breast Feed Discussed: Yes (11/17/2016 13:01:Sandrine Gale RN) Circumcision: Yes (11/17/2016 13:01:Sandrine Gale RN) Classes Attended: No (11/17/2016 13:01:Sandrine Gale RN) Tubal Ligation: No (11/17/2016 13:01:Sandrine Gale RN) Tubal Authorization Signed: N/A (11/17/2016 13:01:Sandrine Gale RN) Consent: N/A (11/17/2016 13:01:Sandrine Gale RN) Consent Signed: N/A (11/17/2016 13:01:Sandrine Gale RN) Pain Management Plans: Epidural (11/17/2016 13:01:Sandrine Gale RN) Plans for Labor and Delivery: None (11/17/2016 13:01:Sandrine Gale RN) Support Person: Vanessa Connor (11/17/2016 13:01:Sandrine Gale RN) Support Person Relationship: Friend (11/17/2016 13:01:Sandrine Gale RN) Cultural/Spritual Practice: No (11/17/2016 13:01:Sandrine Gale RN) Spir/Cult Dietary Needs: No (11/17/2016 13:01:Sandrine Gale RN) LIVING SITUATION/DISCHARGE PLAN Living Arrangements: Apartment (11/17/2016 13:01:Sandrine Gale RN) Adequate Access to:: Electric; Heat; Refrigeration; Plumbing/Running water; Phone; Transportation (11/17/2016 13:01:Sandrine Gale RN) WIC Program: Needs referral (11/17/2016 13:01:Sandrine Gale RN) Currently Using Commun Resources: No (11/17/2016 13:01:Sandrine Gale RN) Outside Agency/Supervisor Dog License Officer: No (11/17/2016 13:01:Sandrine Gale RN) Car Seat for Discharge: No (11/17/2016 13:01:Sandrine Gale RN) Adoption Requested: No (11/17/2016 13:01:Sandrine Gale RN) Pt Contact w/ Post : N/A (11/17/2016 13:01:Sandrine Gale RN) LABS Blood Type: A Positive (11/17/2016 13:01:Iraida Sarabia RN) Antibody Screen: Negative (11/17/2016 13:01:Iraida Sarabia RN) Rho(G) this : Not Applicable (11/17/2016 13:01:Iraida Sarabia RN) Hemoglobin: 10.3 L (12/01/2016 07:00:QS system process) Hematocrit: 31.1 L (12/01/2016 07:00:QS system process) MCV: 81 (12/01/2016 07:00:QS system process) Group Beta Strep: Negative (11/17/2016 13:01:Iraida Sarabia RN) Gonorrhea: Negative (11/17/2016 13:01:Iraida Sarabia RN) Chlamydia: Negative (11/17/2016 13:01:Iraida Sarabia RN) RPR/VDRL: Nonreactive (11/17/2016 13:01:Iraida Sarabia RN) HIV Results: Negative (11/17/2016 13:01:Iraida Sarabia RN) Hepatitis B: Negative (11/17/2016 13:01:Iraida Sarabia RN) Rubella: Immune (11/17/2016 13:01:Iraida Sarabia RN) OB/PREVIOUS HISTORY Previous Procedures: Ultrasound; NST (11/17/2016 13:01:Sandrine Gale RN) Current Procedures: Ultrasound; NST (11/17/2016 13:01:Sandrine Gale RN) History of Previous : No (11/17/2016 13:01:Sandrine Gale RN) History of Gestational Diabetes: Yes (11/17/2016 13:01:Iraida Sarabia RN) History of PIH: No (11/17/2016 13:01:Sandrine Gale RN) History of Incompetent Cervix: No (11/17/2016 13:01:Sandrine Gale RN) History of Placenta Previa/Abrup: No (11/17/2016 13:01:Sandrine Gale RN) History of Macrosomia: No (11/17/2016 13:01:Sandrine Gale RN) History of IUGR: No (11/17/2016 13:01:Sandrine Gale RN) History of Hemorrhage: No (11/17/2016 13:01:Sandrine Gale RN) History of Loss/Stillborn: No (11/17/2016 13:01:Sandrine Gale RN) History of : No (11/17/2016 13:01:Sandrine Gale RN) History of D (Rh) Sensitization: No (11/17/2016 13:01:Sandrine Gale RN) History Recurrent Loss/Stillborn: No (11/17/2016 13:01:Sandrine Gale RN) History Depression/PP Depression: No (11/17/2016 13:01:Sandrine Gale RN) History of Uterine Anomaly/BOSTON: No (11/17/2016 13:01:Sandrine Gale RN) History of Infertility: No (11/17/2016 13:01:Sandrine Gale RN) History of ART Treatment: No (11/17/2016 13:01:Sandrine Gale RN) History of BOSTON: No (11/17/2016 13:01:Sandrine Gale RN) Comments Obstetrical History: G1-EAB in 2002 G2-EAB in 2003 G3- in 2005 female @ 39wks 7lbs 13 oz G4-SAB in 2007 G5-SAB in 2009 G6-SAB in 2009 G7- in 2013 male @ 38wks 7lbs 11 oz G8-Current (11/17/2016 13:01:Iraida Sarabia RN) MEDICAL HISTORY Med Hx Diabetes: Yes (11/17/2016 13:01:Iraida Sarabia RN) Diabetes Type: Gestational Diabetes (11/17/2016 13:01:Iraida Sarabia RN) Med Hx Hypertension: No (11/17/2016 13:01:Sandrine Gale RN) Med Hx Heart Disease: No (11/17/2016 13:01:Sandrine Gale RN) Med Hx Autoimmune Disorder: No (11/17/2016 13:01:Sandrine Gale RN) Med Hx Kidney Disease/UTI: No (11/17/2016 13:01:Sandrine Gale RN) Med Hx Neurologic/Epilepsy: No (11/17/2016 13:01:Sandrine Gale RN) Med Hx Psychiatric Disorders: No (11/17/2016 13:01:Sandrine Gale RN) Med Hx Hepatitis/Liver Disease: No (11/17/2016 13:01:Sandrine Gale RN) Med Hx Varicosities/Phlebitis: No (11/17/2016 13:01:Sandrine Gale RN) Med Hx Thyroid Dysfunction: No (11/17/2016 13:01:Sandrine Gale RN) Med Hx Trauma/Violence: No (11/17/2016 13:01:Sandrine Gale RN) Med Hx Blood Transfusion: No (11/17/2016 13:01:Sandrine Gale RN) Med Hx Pulmonary (Asthma,TB): No (11/17/2016 13:01:Sandrine Gale RN) Med Hx Breast: No (11/17/2016 13:01:Sandrine Gale RN) Med Hx SENIOR DATA WAREHOUSE DEVELOPER Surgery: No (11/17/2016 13:01:Sandrine Gale RN) Med Hx Hospitalization/Surgery: Yes (11/17/2016 13:01:Sandrine Gale RN) Med Hx Anesthetic Complications: No (11/17/2016 13:01:Sandrine Gale RN) Med Hx Abnormal Pap Smear: No (11/17/2016 13:01:Sandrine Gale RN) Other Medical Diseases: No (11/17/2016 13:01:Sandrine Gale RN) Med Hx Significant Family Hx: No (11/17/2016 13:01:Sandrine Gale RN) Details of Med/Surg Hx: Childbirth, GDM (11/17/2016 13:01:Iraida Sarabia RN) INFECTIOUS HISTORY Inf Hx Gonorrhea: No (11/17/2016 13:01:Sandrine Gale RN) Inf Hx Chlamydia: Yes (11/17/2016 13:01:Sandrine Gale RN) Inf Hx Syphilis: No (11/17/2016 13:01:Sandrine Gale RN) Inf Hx HIV/AIDS: No (11/17/2016 13:01:Sandrine Gale RN) Inf Hx Human Papilloma Virus: No (11/17/2016 13:01:Sandrine Gale RN) Inf Hx Pt/Partner Genital Herpes: No (11/17/2016 13:01:Sandrine Gale RN) Inf Hx Tuberculosis/Exposure: No (11/17/2016 13:01:Sandrine Gale RN) Inf Hx Hepatitis B,C: No (11/17/2016 13:01:Sandrine Gale RN) Inf Hx Rash or Viral Illness: No (11/17/2016 13:01:Sandrine Gale RN) Details of Infectious Hx: chlamydia 2004 (11/17/2016 13:01:Sandrine Gale RN) GENETIC HISTORY Gen Hx Age >=35 at HERMILA: No (11/17/2016 13:01:Sandrine Gale RN) Gen Hx Thalassemia: No (11/17/2016 13:01:Sandrine Gale RN) Gen Hx Congenital Heart Defect: No (11/17/2016 13:01:Sandrine Gale RN) Gen Hx Neural Tube Defect: No (11/17/2016 13:01:Sandrine Gale RN) Gen Hx Down's Syndrome: No (11/17/2016 13:01:Sandrine Gale RN) Gen Hx Darius-Sachs: No (11/17/2016 13:01:Sandrine Gale RN) Gen Hx Vidal: No (11/17/2016 13:01:Sandrine Gale RN) Gen Hx Familial Dysautonomia: No (11/17/2016 13:01:Sandrine Gale RN) Gen Hx Sickle Cell Disease/Trait: No (11/17/2016 13:01:Sandrine Gale RN) Gen Hx Hemophilia/Blood Disorder: No (11/17/2016 13:01:Sandrine Gale RN) Gen Hx Muscular Dystrophy: No (11/17/2016 13:01:Sandrine Gale RN) Gen Hx Cystic Fibrosis: No (11/17/2016 13:01:Sandrine Gale RN) Gen Hx Huntingtons Chorea: No (11/17/2016 13:01:Sandrine Gale RN) Gen Hx Mental Retardation/Autism: No (11/17/2016 13:01:Sandrine Gale RN) Gen Hx Tested for Fragile X: No (11/17/2016 13:01:Sandrine Gale RN) Gen Hx Other Inher/Chromosomal: No (11/17/2016 13:01:Sandrine Gale RN) Gen Hx Maternal Metabolic DO: No (11/17/2016 13:01:Sandrine Gale RN) Gen Hx Pt Father or FOB Defect: No (11/17/2016 13:01:Sandrine Gale RN) Gen Hx Other Genetic History: No (11/17/2016 13:01:Sandrine Gale RN) Gen Hx Drugs/Meds since LMP: No (11/17/2016 13:01:Sandrine Gale RN)
--- NOTE | 2016-12-06 06:08 | L&D Current Admission ---
Current Admit Datetime Report Generated by CPN: 12/06/2016 06:00 ADMISSION INFORMATION Current Admit Date/Time: 11/30/2016 00:09 (11/30/2016 00:09:Dolly Horta RN) Reason for Admission: Induction of Labor (11/30/2016 00:09:Dolly Horta RN) Chief Complaint: Scheduled Induction of Labor (11/30/2016 00:09:Dolly Horta RN) EGA per Dates: 39.3 (11/30/2016 00:09:QS system process) Method of Arrival: Wheelchair (11/30/2016 00:09:Dolly Horta RN) Admitted From: Home (11/30/2016 00:09:Dolly Horta RN) Records Available: Yes (11/30/2016 00:09:Dolly Horta RN) General Admission Information: Reviewed (11/30/2016 00:09:Dolly Horta RN) BELONGINGS/ADVANCED DIRECTIVES Valuables/Personal Effects: None (11/30/2016 00:09:Dolly Horta RN) Other Belongings: see belonging consent (11/30/2016 00:09:Dolly Horta RN) Disposition of Belongings: Kept with Patient (11/30/2016 00:09:Dolly Horta RN) Durable Power of Smoking Pipe Coater: No (11/30/2016 00:09:Dolly Horta RN) Living Will: No (11/30/2016 00:09:Dolly Horta RN) Organ Donor: Yes (11/30/2016 00:09:Dolly Horta RN) Pt Rights Information Given: Yes (11/30/2016 00:09:Dolly Horta RN) Pt Understands Pt Rights: Yes (11/30/2016 00:09:Dolly Horta RN) LEARNING ASSESSMENT Knowledge Level: Understands L_D Process; Understands Care Activities; Had Pre-Hospital Education; Understands Diagnosis (11/30/2016 00:09:Dolly Horta RN) Barriers to Learning: None (11/30/2016 00:09:Dolly Horta RN) Learning Readiness: Motivated (11/30/2016 00:09:Dolly Horta RN) Learns Best By: 1 to 1 Instruction (11/30/2016 00:09:Dolly Horta RN) Learning Needs: Labor and Delivery Process; Pain Management; Symptoms to Report; Treatment Plan; Medication; Diagnosis; Nutrition; Equipment; Care; Community Resources (11/30/2016 00:09:Dolly Horta RN) DOMESTIC VIOLANCE SCREENING Dom Viol Threatened/Hurt: No (11/30/2016 00:09:Dolly oHrta RN) Hx of Abuse/Neglect past 2yrs: No (11/30/2016 00:09:Dolly Horta RN) Feel Unsafe Going Home: No (11/30/2016 00:09:Dolly Horta RN) Addt'l Observ Indicating Abuse: No (11/30/2016 00:09:Dolly Horta RN) Reason Unable to Complete Screen: N/A, Screen Completed (11/30/2016 00:09:Dolly Horta RN) Considered Personal Harm/Suicide: No (11/30/2016 00:09:Dolly Horta RN) NUTRITIONAL/FUNCTIONAL SCREENING Problem with Appetite >5 Days: No (11/30/2016 00:09:Dolly Horta RN) Chew/Swallow Difficulties: No (11/30/2016 00:09:Dolly Horta RN) Inappropriate Wt Gain/Loss: No (11/30/2016 00:09:Dolly Horta RN) Presence Skin Breakdown/Ulcer: No (11/30/2016 00:09:Dolly Horta RN) Special Diet: No (11/30/2016 00:09:Dolly Horta RN) Pt Requests Food Services Director Visit: No (11/30/2016 00:09:Dolly Horta RN) Hx of Any of the Following?: N/A (11/30/2016 00:09:Dolly Horta RN) New Diagnosis of: N/A (11/30/2016 00:09:Dolly Horta RN) Requires Assist w/Ambulation: No (11/30/2016 00:09:Dolly Horta RN) Uses Assist Device to Ambulate: No (11/30/2016 00:09:Dolly Horta RN) Pt Requires Help w/ADL's: No (11/30/2016 00:09:Dolly Horta RN)
--- NOTE | 2016-12-06 06:08 | L&D General Admission ---
General Admit Datetime Report Generated by CPN: 12/06/2016 06:00 INFORMATION Patient Age: 26 (06/28/2016 18:07:QS system process) EDC: 12/04/2016 00:00 (11/17/2016 13:01:Sandrine Gale RN) : 8 (11/17/2016 13:01:Iraida Sarabia RN) Para: 2 (11/17/2016 13:01:Sandrine Gale RN) Term: 2 (11/17/2016 13:01:Iraida Sarabia RN) : 0 (11/17/2016 13:01:Iraida Sarabia RN) Spontaneous Abortions: 3 (11/17/2016 13:01:Iraida Sarabia RN) Induced Abortions: 2 (11/17/2016 13:01:Iraida Sarabia RN) Livin (11/17/2016 13:01:Iraida Sarabia RN) Cesareans: 0 (11/17/2016 13:01:Iraida Sarabia RN) VBACs: 0 (11/17/2016 13:01:Iraida Sarabia RN) Ectopic: 0 (11/17/2016 13:01:Iraida Sarabia RN) Multiple Births: 0 (11/17/2016 13:01:Iraida Sarabia RN) Baby, Number in Womb: 1 (11/17/2016 16:12:Sandrine Gale RN) CARE Primary Assembler Piano: [facility] (11/17/2016 13:01:Sandrine Gale RN) Adequate Care: No (11/17/2016 13:01:Iraida Sarabia RN) Prepregnancy Weight (lb): 132 (11/17/2016 13:01:Iraida Sarabia RN) Prepregnancy Weight (kg): 60.0 (11/17/2016 13:01:QS system process) Height (in): 60 (06/28/2016 18:07:QS system process) ALLERGIES Medication Allergy: No (11/17/2016 13:01:Sadnrine Gale RN) Medication Allergies: No Known Allergies (11/17/2016) (11/17/2016 16:18:QS system process) Latex Allergy: No Latex Allergies (11/17/2016 13:01:Sandrine Gale RN) Food Allergies: n/a (11/17/2016 13:01:Sandrine Gale RN) Environmental Allergies: n/a (11/17/2016 13:01:Sandrine Gale RN) COMMUNICATION Primary Language: South African (11/17/2016 13:01:Sandrine Gale RN) Medical Tx Preferred Language: [place] African (11/17/2016 13:01:Sandrine Gale RN) Communication Barrier(s): None (11/17/2016 13:01:Iraida Sarabia RN) DEMOGRAPHICS Address: [address] [place] [address] EDNA PALACIOS [address] [address] (07/12/2016 12:07:QS system process) Zipcode: [address] (06/28/2016 18:07:QS system process) Home (07/12/2016 12:07:QS system process) Work (07/12/2016 12:07:QS system process) SSN: [id number] (06/28/2016 18:07:QS system process) Next of Kin Name: VANESSA CONNOR (07/12/2016 12:07:QS system process) Next of Kin (06/28/2016 18:07:QS system process) Next of Kin Relationship: OR (06/28/2016 18:07:QS system process) Date of : 1990 (06/28/2016 18:07:QS system process) Marital Status: Single (06/28/2016 18:07:QS system process) Sex: Female (06/28/2016 18:07:QS system process) Race: (06/28/2016 18:07:QS system process) Ethnicity: Non- or (06/28/2016 18:07:QS system process) Zoroastrian: None (06/28/2016 18:07:QS system process) FOB Involved: Yes (11/17/2016 13:01:Dolly Horta RN) DRUG AND ALCOHOL USE Alcohol: No (11/17/2016 13:01:Sandrine Gale RN) Cigarettes: Never Smoker. [id number] (11/17/2016 13:01:Sandrine Gale RN) Marijuana: No (11/17/2016 13:01:Sandrine Gale RN) Cocaine: No (11/17/2016 13:01:Sandrine Gale RN) Other Illicit Drugs: No (11/17/2016 13:01:Sandrine Gale RN) Sports Instructor: [employer] (11/17/2016 13:01:Sandrine Gale RN) Feeding Preference: Both (11/17/2016 13:01:Sandrine Gale RN) Benefit of Breast Feed Discussed: Yes (11/17/2016 13:01:Sandrine Gale RN) Circumcision: Yes (11/17/2016 13:01:Sandrine Gale RN) Classes Attended: No (11/17/2016 13:01:Sandrine Gale RN) Tubal Ligation: No (11/17/2016 13:01:Sandrine Gale RN) Tubal Authorization Signed: N/A (11/17/2016 13:01:Sandrine Gale RN) Consent: N/A (11/17/2016 13:01:Sandrine Gale RN) Consent Signed: N/A (11/17/2016 13:01:Sandrine Gale RN) Pain Management Plans: Epidural (11/17/2016 13:01:Sandrine Gale RN) Plans for Labor and Delivery: None (11/17/2016 13:01:Sandrine Gale RN) Support Person: Vanessa Connor (11/17/2016 13:01:Sandrine Gale RN) Support Person Relationship: Friend (11/17/2016 13:01:Sandrine Gale RN) Cultural/Spritual Practice: No (11/17/2016 13:01:Sandrine Gale RN) Spir/Cult Dietary Needs: No (11/17/2016 13:01:Sandrine Gale RN) LIVING SITUATION/DISCHARGE PLAN Living Arrangements: Apartment (11/17/2016 13:01:Sandrine Gale RN) Adequate Access to:: Electric; Heat; Refrigeration; Plumbing/Running water; Phone; Transportation (11/17/2016 13:01:Sandrine Gale RN) WIC Program: Needs referral (11/17/2016 13:01:Sandrine Gale RN) Currently Using Commun Resources: No (11/17/2016 13:01:Sandrine Gale RN) Outside Agency/Driver Merchandiser: No (11/17/2016 13:01:Sandrine Gale RN) Car Seat for Discharge: No (11/17/2016 13:01:Sandrine Gale RN) Adoption Requested: No (11/17/2016 13:01:Sandrine Gale RN) Pt Contact w/ Post : N/A (11/17/2016 13:01:Sandrine Gale RN) LABS Blood Type: A Positive (11/17/2016 13:01:Iraida Sarabia RN) Antibody Screen: Negative (11/17/2016 13:01:Iraida Sarabia RN) Rho(G) this : Not Applicable (11/17/2016 13:01:Iraida Sarabia RN) Hemoglobin: 10.3 L (12/01/2016 07:00:QS system process) Hematocrit: 31.1 L (12/01/2016 07:00:QS system process) MCV: 81 (12/01/2016 07:00:QS system process) Group Beta Strep: Negative (11/17/2016 13:01:Iraida Sarabia RN) Gonorrhea: Negative (11/17/2016 13:01:Iraida Sarabia RN) Chlamydia: Negative (11/17/2016 13:01:Iraida Sarabia RN) RPR/VDRL: Nonreactive (11/17/2016 13:01:Iraida Sarabia RN) HIV Results: Negative (11/17/2016 13:01:Iraida Sarabia RN) Hepatitis B: Negative (11/17/2016 13:01:Iraida Sarabia RN) Rubella: Immune (11/17/2016 13:01:Iraida Sarabia RN) OB/PREVIOUS HISTORY Previous Procedures: Ultrasound; NST (11/17/2016 13:01:Sandrine Gale RN) Current Procedures: Ultrasound; NST (11/17/2016 13:01:Sandrine Gale RN) History of Previous : No (11/17/2016 13:01:Sandrine Gale RN) History of Gestational Diabetes: Yes (11/17/2016 13:01:Iraida Sarabia RN) History of PIH: No (11/17/2016 13:01:Sandrine Gale RN) History of Incompetent Cervix: No (11/17/2016 13:01:Sandrine Gale RN) History of Placenta Previa/Abrup: No (11/17/2016 13:01:Sandrine Gale RN) History of Macrosomia: No (11/17/2016 13:01:Sandrine Gale RN) History of IUGR: No (11/17/2016 13:01:Sandrine Gale RN) History of Hemorrhage: No (11/17/2016 13:01:Sandrine Gale RN) History of Loss/Stillborn: No (11/17/2016 13:01:Sandrine Gale RN) History of : No (11/17/2016 13:01:Sandrine Gale RN) History of D (Rh) Sensitization: No (11/17/2016 13:01:Sandrine Gale RN) History Recurrent Loss/Stillborn: No (11/17/2016 13:01:Sandrine Gale RN) History Depression/PP Depression: No (11/17/2016 13:01:Sandrine Gale RN) History of Uterine Anomaly/BOSTON: No (11/17/2016 13:01:Sandrine Gale RN) History of Infertility: No (11/17/2016 13:01:Sandrine Gale RN) History of ART Treatment: No (11/17/2016 13:01:Sandrine Gale RN) History of BOSTON: No (11/17/2016 13:01:Sandrine Gale RN) Comments Obstetrical History: G1-EAB in 2002 G2-EAB in 2003 G3- in 2005 female @ 39wks 7lbs 13 oz G4-SAB in 2007 G5-SAB in 2009 G6-SAB in 2009 G7- in 2013 male @ 38wks 7lbs 11 oz G8-Current (11/17/2016 13:01:Iraida Sarabia RN) MEDICAL HISTORY Med Hx Diabetes: Yes (11/17/2016 13:01:Iraida Sarabia RN) Diabetes Type: Gestational Diabetes (11/17/2016 13:01:Iraida Sarabia RN) Med Hx Hypertension: No (11/17/2016 13:01:Sandrine Gale RN) Med Hx Heart Disease: No (11/17/2016 13:01:Sandrine Gale RN) Med Hx Autoimmune Disorder: No (11/17/2016 13:01:Sandrine Gale RN) Med Hx Kidney Disease/UTI: No (11/17/2016 13:01:Sandrine Gale RN) Med Hx Neurologic/Epilepsy: No (11/17/2016 13:01:Sandrine Gale RN) Med Hx Psychiatric Disorders: No (11/17/2016 13:01:Sandrine Gale RN) Med Hx Hepatitis/Liver Disease: No (11/17/2016 13:01:Sandrine Gale RN) Med Hx Varicosities/Phlebitis: No (11/17/2016 13:01:Sandrine Gale RN) Med Hx Thyroid Dysfunction: No (11/17/2016 13:01:Sandrien Gale RN) Med Hx Trauma/Violence: No (11/17/2016 13:01:Sandrine Gale RN) Med Hx Blood Transfusion: No (11/17/2016 13:01:Sandrine Gale RN) Med Hx Pulmonary (Asthma,TB): No (11/17/2016 13:01:Sandrine Gale RN) Med Hx Breast: No (11/17/2016 13:01:Sandrine Gale RN) Med Hx HYDROELECTRIC PLANT TECHNICIAN Surgery: No (11/17/2016 13:01:Sandrine Gale RN) Med Hx Hospitalization/Surgery: Yes (11/17/2016 13:01:Sandrine Gale RN) Med Hx Anesthetic Complications: No (11/17/2016 13:01:Sandrine Gale RN) Med Hx Abnormal Pap Smear: No (11/17/2016 13:01:Sandrine Gale RN) Other Medical Diseases: No (11/17/2016 13:01:Sandrine Gale RN) Med Hx Significant Family Hx: No (11/17/2016 13:01:Sandrine Gale RN) Details of Med/Surg Hx: Childbirth, GDM (11/17/2016 13:01:Iraida Sarabia RN) INFECTIOUS HISTORY Inf Hx Gonorrhea: No (11/17/2016 13:01:Sandrine Gale RN) Inf Hx Chlamydia: Yes (11/17/2016 13:01:Sandrine Gale RN) Inf Hx Syphilis: No (11/17/2016 13:01:Sandrine Gale RN) Inf Hx HIV/AIDS: No (11/17/2016 13:01:Sandrine Gale RN) Inf Hx Human Papilloma Virus: No (11/17/2016 13:01:Sandrine Gale RN) Inf Hx Pt/Partner Genital Herpes: No (11/17/2016 13:01:Sandrine Gale RN) Inf Hx Tuberculosis/Exposure: No (11/17/2016 13:01:Sandrine Gale RN) Inf Hx Hepatitis B,C: No (11/17/2016 13:01:Sandrine Gale RN) Inf Hx Rash or Viral Illness: No (11/17/2016 13:01:Sandrine Gale RN) Details of Infectious Hx: chlamydia 2004 (11/17/2016 13:01:Sandrine Gale RN) GENETIC HISTORY Gen Hx Age >=35 at HERMILA: No (11/17/2016 13:01:Sandrine Gale RN) Gen Hx Thalassemia: No (11/17/2016 13:01:Sandrine Gale RN) Gen Hx Congenital Heart Defect: No (11/17/2016 13:01:Sandrine Gale RN) Gen Hx Neural Tube Defect: No (11/17/2016 13:01:Sandrine Gale RN) Gen Hx Down's Syndrome: No (11/17/2016 13:01:Sandrine Gale RN) Gen Hx Darius-Sachs: No (11/17/2016 13:01:Sandrine Gale RN) Gen Hx Vidal: No (11/17/2016 13:01:Sandrine Gale RN) Gen Hx Familial Dysautonomia: No (11/17/2016 13:01:Sandrine Gale RN) Gen Hx Sickle Cell Disease/Trait: No (11/17/2016 13:01:Sandrine Gale RN) Gen Hx Hemophilia/Blood Disorder: No (11/17/2016 13:01:Sandrine Gale RN) Gen Hx Muscular Dystrophy: No (11/17/2016 13:01:Sandrine Gale RN) Gen Hx Cystic Fibrosis: No (11/17/2016 13:01:Sandrine Gale RN) Gen Hx Huntingtons Chorea: No (11/17/2016 13:01:Sandrine Gale RN) Gen Hx Mental Retardation/Autism: No (11/17/2016 13:01:Sandrine Gale RN) Gen Hx Tested for Fragile X: No (11/17/2016 13:01:Sandrine Gale RN) Gen Hx Other Inher/Chromosomal: No (11/17/2016 13:01:Sandrine Gale RN) Gen Hx Maternal Metabolic DO: No (11/17/2016 13:01:Sandrine Gale RN) Gen Hx Pt Father or FOB Defect: No (11/17/2016 13:01:Sandrine Gale RN) Gen Hx Other Genetic History: No (11/17/2016 13:01:Sandrine Gale RN) Gen Hx Drugs/Meds since LMP: No (11/17/2016 13:01:Sandrine Gale RN)
--- NOTE | 2016-12-07 06:03 | L&D General Admission ---
General Admit Datetime Report Generated by CPN: 12/07/2016 06:00 INFORMATION Patient Age: 26 (06/28/2016 18:07:QS system process) EDC: 12/04/2016 00:00 (11/17/2016 13:01:Sandrine Gale RN) : 8 (11/17/2016 13:01:Iraida Sarabia RN) Para: 2 (11/17/2016 13:01:Sandrine Gale RN) Term: 2 (11/17/2016 13:01:Iraida Sarabia RN) : 0 (11/17/2016 13:01:Iraida Sarabia RN) Spontaneous Abortions: 3 (11/17/2016 13:01:Iraida Sarabia RN) Induced Abortions: 2 (11/17/2016 13:01:Iraida Sarabia RN) Livin (11/17/2016 13:01:Iraida Sarabia RN) Cesareans: 0 (11/17/2016 13:01:Iraida Sarabia RN) VBACs: 0 (11/17/2016 13:01:Iraida Sarabia RN) Ectopic: 0 (11/17/2016 13:01:Iraida Sarabia RN) Multiple Births: 0 (11/17/2016 13:01:Iraida Sarabia RN) Baby, Number in Womb: 1 (11/17/2016 16:12:Sandrine Gale RN) CARE Primary Desizing Machine Back Tender: [facility] (11/17/2016 13:01:Sandrine Gale RN) Adequate Care: No (11/17/2016 13:01:Iraida Sarabia RN) Prepregnancy Weight (lb): 132 (11/17/2016 13:01:Iraida Sarabia RN) Prepregnancy Weight (kg): 60.0 (11/17/2016 13:01:QS system process) Height (in): 60 (06/28/2016 18:07:QS system process) ALLERGIES Medication Allergy: No (11/17/2016 13:01:Sandrine Gale RN) Medication Allergies: No Known Allergies (11/17/2016) (11/17/2016 16:18:QS system process) Latex Allergy: No Latex Allergies (11/17/2016 13:01:Sandrine Gale RN) Food Allergies: n/a (11/17/2016 13:01:Sandrine Gale RN) Environmental Allergies: n/a (11/17/2016 13:01:Sandrine Gale RN) COMMUNICATION Primary Language: Beninese (11/17/2016 13:01:Sandrine Gale RN) Medical Tx Preferred Language: Beninese (11/17/2016 13:01:Sandrine Gale RN) Communication Barrier(s): None (11/17/2016 13:01:Iraida Sarabia RN) DEMOGRAPHICS Address: [address] [place] [address] EDNA PALACIOS [address] [address] (07/12/2016 12:07:QS system process) Zipcode: [address] (06/28/2016 18:07:QS system process) Home (07/12/2016 12:07:QS system process) Work (07/12/2016 12:07:QS system process) SSN: [id number] (06/28/2016 18:07:QS system process) Next of Kin Name: VANESSA CONNOR (07/12/2016 12:07:QS system process) Next of Kin (06/28/2016 18:07:QS system process) Next of Kin Relationship: OR (06/28/2016 18:07:QS system process) Date of : 1990 (06/28/2016 18:07:QS system process) Marital Status: Single (06/28/2016 18:07:QS system process) Sex: Female (06/28/2016 18:07:QS system process) Race: (06/28/2016 18:07:QS system process) Ethnicity: Non- or (06/28/2016 18:07:QS system process) Sikh: None (06/28/2016 18:07:QS system process) FOB Involved: Yes (11/17/2016 13:01:Dolly Horta RN) DRUG AND ALCOHOL USE Alcohol: No (11/17/2016 13:01:Sandrine Gale RN) Cigarettes: Never Smoker. [id number] (11/17/2016 13:01:Sandrine Gale RN) Marijuana: No (11/17/2016 13:01:Sandrine Gale RN) Cocaine: No (11/17/2016 13:01:Sandrine Gale RN) Other Illicit Drugs: No (11/17/2016 13:01:Sandrine Gale RN) Net Mender: [facility] (11/17/2016 13:01:Sandrine Gale RN) Feeding Preference: Both (11/17/2016 13:01:Sandrine Gale RN) Benefit of Breast Feed Discussed: Yes (11/17/2016 13:01:Sandrine Gale RN) Circumcision: Yes (11/17/2016 13:01:Sandrine Gale RN) Classes Attended: No (11/17/2016 13:01:Sandrine Gale RN) Tubal Ligation: No (11/17/2016 13:01:Sandrine Gale RN) Tubal Authorization Signed: N/A (11/17/2016 13:01:Sandrine Gale RN) Consent: N/A (11/17/2016 13:01:Sandrine Gale RN) Consent Signed: N/A (11/17/2016 13:01:Sandrine Gale RN) Pain Management Plans: Epidural (11/17/2016 13:01:Sandrine Gale RN) Plans for Labor and Delivery: None (11/17/2016 13:01:Sandrine Gale RN) Support Person: Vanessa Connor (11/17/2016 13:01:Sandrine Gale RN) Support Person Relationship: Friend (11/17/2016 13:01:Sandrine Gale RN) Cultural/Spritual Practice: No (11/17/2016 13:01:Sandrine Gale RN) Spir/Cult Dietary Needs: No (11/17/2016 13:01:Sandrine Gale RN) LIVING SITUATION/DISCHARGE PLAN Living Arrangements: Apartment (11/17/2016 13:01:Sandrine Gale RN) Adequate Access to:: Electric; Heat; Refrigeration; Plumbing/Running water; Phone; Transportation (11/17/2016 13:01:Sandrine Gale RN) WIC Program: Needs referral (11/17/2016 13:01:Sandrine Gale RN) Currently Using Commun Resources: No (11/17/2016 13:01:Sandrine Gale RN) Outside Agency/Test Hole Driller: No (11/17/2016 13:01:Sandrine Gale RN) Car Seat for Discharge: No (11/17/2016 13:01:Sandrine Gale RN) Adoption Requested: No (11/17/2016 13:01:Sandrine Gale RN) Pt Contact w/ Post : N/A (11/17/2016 13:01:Sandrine Gale RN) LABS Blood Type: A Positive (11/17/2016 13:01:Iraida Sarabia RN) Antibody Screen: Negative (11/17/2016 13:01:Iraida Sarabia RN) Rho(G) this : Not Applicable (11/17/2016 13:01:Iraida Sarabia RN) Hemoglobin: 10.3 L (12/01/2016 07:00:QS system process) Hematocrit: 31.1 L (12/01/2016 07:00:QS system process) MCV: 81 (12/01/2016 07:00:QS system process) Group Beta Strep: Negative (11/17/2016 13:01:Iraida Sarabia RN) Gonorrhea: Negative (11/17/2016 13:01:Iraida Sarabia RN) Chlamydia: Negative (11/17/2016 13:01:Iraida Sarabia RN) RPR/VDRL: Nonreactive (11/17/2016 13:01:Iraida Sarabia RN) HIV Results: Negative (11/17/2016 13:01:Iraida Sarabia RN) Hepatitis B: Negative (11/17/2016 13:01:Iraida Sarabia RN) Rubella: Immune (11/17/2016 13:01:Iraida Sarabia RN) OB/PREVIOUS HISTORY Previous Procedures: Ultrasound; NST (11/17/2016 13:01:Sandrine Gale RN) Current Procedures: Ultrasound; NST (11/17/2016 13:01:Sandrine Gale RN) History of Previous : No (11/17/2016 13:01:Sandrine Gale RN) History of Gestational Diabetes: Yes (11/17/2016 13:01:Iraida Sarabia RN) History of PIH: No (11/17/2016 13:01:Sandrine Gale RN) History of Incompetent Cervix: No (11/17/2016 13:01:Sandrine Gale RN) History of Placenta Previa/Abrup: No (11/17/2016 13:01:Sandrine Gale RN) History of Macrosomia: No (11/17/2016 13:01:Sandrine Gale RN) History of IUGR: No (11/17/2016 13:01:Sandrine Gale RN) History of Hemorrhage: No (11/17/2016 13:01:Sandrine Gale RN) History of Loss/Stillborn: No (11/17/2016 13:01:Sandrine Gale RN) History of : No (11/17/2016 13:01:Sandrine Gale RN) History of D (Rh) Sensitization: No (11/17/2016 13:01:Sandrine Gale RN) History Recurrent Loss/Stillborn: No (11/17/2016 13:01:Sandrine Gale RN) History Depression/PP Depression: No (11/17/2016 13:01:Sandrine Gale RN) History of Uterine Anomaly/BOSTON: No (11/17/2016 13:01:Sandrine Gale RN) History of Infertility: No (11/17/2016 13:01:Sandrine Gale RN) History of ART Treatment: No (11/17/2016 13:01:Sandrine Gale RN) History of BOSTON: No (11/17/2016 13:01:Sandrine Gale RN) Comments Obstetrical History: G1-EAB in 2002 G2-EAB in 2003 G3- in 2005 female @ 39wks 7lbs 13 oz G4-SAB in 2007 G5-SAB in 2009 G6-SAB in 2009 G7- in 2013 male @ 38wks 7lbs 11 oz G8-Current (11/17/2016 13:01:Iraida Sarabia RN) MEDICAL HISTORY Med Hx Diabetes: Yes (11/17/2016 13:01:Iraida Sarabia RN) Diabetes Type: Gestational Diabetes (11/17/2016 13:01:Iraida Sarabia RN) Med Hx Hypertension: No (11/17/2016 13:01:Sandrine Gale RN) Med Hx Heart Disease: No (11/17/2016 13:01:Sandrine Gale RN) Med Hx Autoimmune Disorder: No (11/17/2016 13:01:Sandrine Gale RN) Med Hx Kidney Disease/UTI: No (11/17/2016 13:01:Sandrine Gale RN) Med Hx Neurologic/Epilepsy: No (11/17/2016 13:01:Sandrine Gale RN) Med Hx Psychiatric Disorders: No (11/17/2016 13:01:Sandrine Gale RN) Med Hx Hepatitis/Liver Disease: No (11/17/2016 13:01:Sandrine Gale RN) Med Hx Varicosities/Phlebitis: No (11/17/2016 13:01:Sandrine Gale RN) Med Hx Thyroid Dysfunction: No (11/17/2016 13:01:Sandrine Gale RN) Med Hx Trauma/Violence: No (11/17/2016 13:01:Sandrine Gale RN) Med Hx Blood Transfusion: No (11/17/2016 13:01:Sandrine Gale RN) Med Hx Pulmonary (Asthma,TB): No (11/17/2016 13:01:Sandrine Gale RN) Med Hx Breast: No (11/17/2016 13:01:Sandrine Gale RN) Med Hx COMMERCIAL ASSISTANT Surgery: No (11/17/2016 13:01:Sandrine Gale RN) Med Hx Hospitalization/Surgery: Yes (11/17/2016 13:01:Sandrine Gale RN) Med Hx Anesthetic Complications: No (11/17/2016 13:01:Sandrine Gale RN) Med Hx Abnormal Pap Smear: No (11/17/2016 13:01:Sandrine Gale RN) Other Medical Diseases: No (11/17/2016 13:01:Sandrine Gale RN) Med Hx Significant Family Hx: No (11/17/2016 13:01:Sandrine Gale RN) Details of Med/Surg Hx: Childbirth, GDM (11/17/2016 13:01:Iraida Sarabia RN) INFECTIOUS HISTORY Inf Hx Gonorrhea: No (11/17/2016 13:01:Sandrine Gale RN) Inf Hx Chlamydia: Yes (11/17/2016 13:01:Sandrine Gale RN) Inf Hx Syphilis: No (11/17/2016 13:01:Sandrine Gale RN) Inf Hx HIV/AIDS: No (11/17/2016 13:01:Sandrine Gale RN) Inf Hx Human Papilloma Virus: No (11/17/2016 13:01:Sandrine Gale RN) Inf Hx Pt/Partner Genital Herpes: No (11/17/2016 13:01:Sandrine Gale RN) Inf Hx Tuberculosis/Exposure: No (11/17/2016 13:01:Sandrine Gale RN) Inf Hx Hepatitis B,C: No (11/17/2016 13:01:Sandrine Gale RN) Inf Hx Rash or Viral Illness: No (11/17/2016 13:01:Sandrine Gale RN) Details of Infectious Hx: chlamydia 2004 (11/17/2016 13:01:Sandrine Gale RN) GENETIC HISTORY Gen Hx Age >=35 at HERMILA: No (11/17/2016 13:01:Sandrine Gale RN) Gen Hx Thalassemia: No (11/17/2016 13:01:Sandrine Gale RN) Gen Hx Congenital Heart Defect: No (11/17/2016 13:01:Sandrine Gale RN) Gen Hx Neural Tube Defect: No (11/17/2016 13:01:Sandrine Gale RN) Gen Hx Down's Syndrome: No (11/17/2016 13:01:Sandrine Gale RN) Gen Hx Darius-Sachs: No (11/17/2016 13:01:Sandrine Gale RN) Gen Hx Vidal: No (11/17/2016 13:01:Sandrine Gale RN) Gen Hx Familial Dysautonomia: No (11/17/2016 13:01:Sandrine Gale RN) Gen Hx Sickle Cell Disease/Trait: No (11/17/2016 13:01:Sandrine Gale RN) Gen Hx Hemophilia/Blood Disorder: No (11/17/2016 13:01:Sandrine Gale RN) Gen Hx Muscular Dystrophy: No (11/17/2016 13:01:Sandrine Gale RN) Gen Hx Cystic Fibrosis: No (11/17/2016 13:01:Sandrine Gale RN) Gen Hx Huntingtons Chorea: No (11/17/2016 13:01:Sandrine Gale RN) Gen Hx Mental Retardation/Autism: No (11/17/2016 13:01:Sandrine Gale RN) Gen Hx Tested for Fragile X: No (11/17/2016 13:01:Sandrine Gale RN) Gen Hx Other Inher/Chromosomal: No (11/17/2016 13:01:Sandrine Gale RN) Gen Hx Maternal Metabolic DO: No (11/17/2016 13:01:Sandrine Gale RN) Gen Hx Pt Father or FOB Defect: No (11/17/2016 13:01:Sandrine Gale RN) Gen Hx Other Genetic History: No (11/17/2016 13:01:Sandrine Gale RN) Gen Hx Drugs/Meds since LMP: No (11/17/2016 13:01:Sandrine Gale RN)
--- NOTE | 2016-12-07 06:03 | L&D Current Admission ---
Current Admit Datetime Report Generated by CPN: 12/07/2016 06:00 ADMISSION INFORMATION Current Admit Date/Time: 11/30/2016 00:09 (11/30/2016 00:09:Dolly Horta RN) Reason for Admission: Induction of Labor (11/30/2016 00:09:Dolly Horta RN) Chief Complaint: Scheduled Induction of Labor (11/30/2016 00:09:Dolly Horta RN) EGA per Dates: 39.3 (11/30/2016 00:09:QS system process) Method of Arrival: Wheelchair (11/30/2016 00:09:Dolly Horta RN) Admitted From: Home (11/30/2016 00:09:Dolly Horta RN) Records Available: Yes (11/30/2016 00:09:Dolly Horta RN) General Admission Information: Reviewed (11/30/2016 00:09:Dolly Horta RN) BELONGINGS/ADVANCED DIRECTIVES Valuables/Personal Effects: None (11/30/2016 00:09:Dolly Horta RN) Other Belongings: see belonging consent (11/30/2016 00:09:Dolly Horta RN) Disposition of Belongings: Kept with Patient (11/30/2016 00:09:Dolly Horta RN) Durable Power of Cake Puller: No (11/30/2016 00:09:Dolly Horta RN) Living Will: No (11/30/2016 00:09:Dolly Horta RN) Organ Donor: Yes (11/30/2016 00:09:Dolly Horta RN) Pt Rights Information Given: Yes (11/30/2016 00:09:Dolly Horta RN) Pt Understands Pt Rights: Yes (11/30/2016 00:09:Dolly Horta RN) LEARNING ASSESSMENT Knowledge Level: Understands L_D Process; Understands Care Activities; Had Pre-Hospital Education; Understands Diagnosis (11/30/2016 00:09:Dolly Horta RN) Barriers to Learning: None (11/30/2016 00:09:Dolly Horta RN) Learning Readiness: Motivated (11/30/2016 00:09:Dolly Horta RN) Learns Best By: 1 to 1 Instruction (11/30/2016 00:09:Dolly Horta RN) Learning Needs: Labor and Delivery Process; Pain Management; Symptoms to Report; Treatment Plan; Medication; Diagnosis; Nutrition; Equipment; Care; Community Resources (11/30/2016 00:09:Dolly Horta RN) DOMESTIC VIOLANCE SCREENING Dom Viol Threatened/Hurt: No (11/30/2016 00:09:Dolly Horta RN) Hx of Abuse/Neglect past 2yrs: No (11/30/2016 00:09:Dolly Horta RN) Feel Unsafe Going Home: No (11/30/2016 00:09:Dolly Horta RN) Addt'l Observ Indicating Abuse: No (11/30/2016 00:09:Dolly Horta RN) Reason Unable to Complete Screen: N/A, Screen Completed (11/30/2016 00:09:Dolly Horta RN) Considered Personal Harm/Suicide: No (11/30/2016 00:09:Dolly Horta RN) NUTRITIONAL/FUNCTIONAL SCREENING Problem with Appetite >5 Days: No (11/30/2016 00:09:Dolly Horta RN) Chew/Swallow Difficulties: No (11/30/2016 00:09:Dolly Horta RN) Inappropriate Wt Gain/Loss: No (11/30/2016 00:09:Dolly Horat RN) Presence Skin Breakdown/Ulcer: No (11/30/2016 00:09:Dolly Horta RN) Special Diet: No (11/30/2016 00:09:Dolly Horta RN) Pt Requests Centrifugal Extractor Operator Visit: No (11/30/2016 00:09:Dolly Horta RN) Hx of Any of the Following?: N/A (11/30/2016 00:09:Dolly Horta RN) New Diagnosis of: N/A (11/30/2016 00:09:Dolly Horta RN) Requires Assist w/Ambulation: No (11/30/2016 00:09:Dolly Horta RN) Uses Assist Device to Ambulate: No (11/30/2016 00:09:Dolly Horta RN) Pt Requires Help w/ADL's: No (11/30/2016 00:09:Dolly Horta RN)
== END 2016-12-02 13:05 | disposition home or self-care (01) | DRG 775 ==
LOC: LR 22:31 → 2S 11-30 11:56
PROVIDERS: ADMIT Obstetrics & Gynecology; ATTEND Student in an Organized Health Care Education/Training Program
PROC: 4A1HXCZ Monitoring of Products of Conception, Cardiac Rate, External Approach (ICD-10-PCS; 2016-11-29)
PROC: 10E0XZZ Delivery of Products of Conception, External Approach (ICD-10-PCS; principal; 2016-11-30)
PROC: 3E0P7GC Introduction of Other Therapeutic Substance into Female Reproductive, Via Natural or Artificial Opening (ICD-10-PCS; 2016-11-30)
DX: O77.0 Labor and delivery complicated by meconium in amniotic fluid (principal); O69.81X0 Labor and delivery complicated by cord around neck, without compression, not applicable or unspecified; O13.4 Gestational [pregnancy-induced] hypertension without significant proteinuria, complicating childbirth; O24.429 Gestational diabetes mellitus in childbirth, unspecified control; Z3A.39 39 weeks gestation of pregnancy; Z37.0 Single live birth
CPT/HCPCS: 36415; 80307; 81005; 85025; 85027; 86592; 86850; 86900; 86901; 88307; J2370; J2590; J3010; J3490

== ENCOUNTER 2017-02-02 19:34 | Emergency (ER) | payer MEDICAID ==
--- NOTE | 2017-02-02 20:30 | ER Document Report ---
ED Medical Screen (RME) - General Chief Complaint: Chest Pain Stated Complaint: CHEST PAIN/DIZZINESS Notes: She states that she was at her daughter's competition tonight and was getting excited and started experiencing chest pain with shortness of breath and dizziness. Describes the pain as pressure. States she had heart murmur and irregular heartbeat as child, but has outgrown it. Does admit to a history of anxiety. Also states she had a baby about 2 months ago. No problems with chest pain or shortness of breath since delivery. I have greeted and performed a rapid initial assessment of this patient. A comprehensive ED assessment and evaluation of the patient, analysis of test results and completion of the medical decision making process will be conducted by additional ED providers. TRAVEL OUTSIDE OF THE [place] IN LAST 30 DAYS: No - Related Data Allergies/Adverse Reactions: No Known Allergies Allergy (Verified 11/17/16 16:18) Past Medical History - Immunizations Hx Diphtheria, Pertussis, Tetanus Vaccination: Yes Physical Exam - Cardiovascular Rhythm: Regular Heart sounds: Normal auscultation Murmur: Yes
--- NOTE | 2017-02-02 23:19 | ER Document Report ---
ED General - General Chief Complaint: Chest Pain Stated Complaint: CHEST PAIN/DIZZINESS Notes: Patient is a 26-year-old female who presents for complaints of sudden onset of chest pain. No difficulty breathing. Patient says she developed chest pain when she stood up to cheer for somebody at an event. Her heart started to race. She then developed chest pain. Patient says her heart does race frequently. She says she has pain that rates from her chest rate to her back. It is now on the epigastric region gone straight her back. No vomiting. Fevers. No recent infections. Patient history of a heart murmur as a child. She continues to have the pain. Nothing makes it better or worse. TRAVEL OUTSIDE OF THE [place] IN LAST 30 DAYS: No - Related Data Allergies/Adverse Reactions: No Known Allergies Allergy (Verified 11/17/16 16:18) Home Medications: Current Home Medications No Home Medications 02/02/17 [History] Past Medical History - Social History Smoking Status: Never Smoker Chew tobacco use (# tins/day): No Frequency of alcohol use: None Drug Abuse: None Family History: Reviewed & Not Pertinent Patient has suicidal ideation: No Patient has homicidal ideation: No Renal/ Medical History: Denies: Hx Peritoneal Dialysis - Immunizations Hx Diphtheria, Pertussis, Tetanus Vaccination: Yes Review of Systems - Review of Systems Notes: My Normal Review Basic REVIEW OF SYSTEMS: CONSTITUTIONAL : Denies fever, chills, or sweats. Denies recent illness. EENT: Denies eye, ear, throat, or mouth pain or symptoms. Denies nasal or sinus congestion. CARDIOVASCULAR: Had chest pain. Pain is now more epigastric. RESPIRATORY: Denies cough, cold, or chest congestion. Denies shortness of breath, difficulty breathing, or wheezing. GASTROINTESTINAL: Epigastric abdominal pain. Denies nausea, vomiting, or diarrhea. Denies constipation. Last BM: GENITOURINARY: Denies difficulty urinating, painful urination, burning, frequency, or blood in urine. FEMALE GENITOURINARY: Denies vaginal bleeding, abnormal or irregular periods. LMP: MUSCULOSKELETAL: Denies neck or back pain or joint pain or swelling. SKIN: Denies rash or skin lesions. NEUROLOGICAL: Denies altered mental status or loss of consciousness. Denies headache. Denies weakness or paralysis or loss of use of either side. Denies problems with gait or speech. Denies sensory or motor loss. ALL OTHER SYSTEMS REVIEWED AND NEGATIVE. Physical Exam - Vital signs Vitals: Temp Pulse Resp BP Pulse Ox 98.1 F 64 16 146/77 H 97 02/02/17 20:28 02/02/17 20:28 02/02/17 20:28 02/02/17 20:28 02/02/17 20:28 - Notes Notes: General Appearance: Well nourished, alert, cooperative, no acute distress, moderate obvious discomfort. Vitals: reviewed, See vital signs table. Head: no swelling or tenderness to the head Eyes: PERRL, EOMI, Conjuctiva clear Mouth: No decreasd moisture Neck: Supple, no neck tenderness, Lungs: No wheezing, No rales, No rhonci, No accessory muscle use, good air exchange bilaterally. Heart: Normal rate, Regular rythm, No murmur, no rub Abdomen: Normal BS, soft, No rigidity, No abdominal tenderness, No guarding, no rebound, no abdominal masses, no organomegaly Extremities: strength 5/5 in all extremities, good pulses in all extremities, equal femoral pulses bilaterally. No swelling or tenderness in the extremities , no edema. Skin: warm, dry, appropriate color, no rash Neuro: speech clear, oriented x 3, normal affect, responds appropriately to questions. Course - Re-evaluation Re-evalutation: 02/03/17 00:34 Patient complaining of a headache after the CT scan was performed. She also has become little hypertensive. She did not have a headache or hypertension prior to CT scan. She feels the pain in epigastric region. She says is not as bad as it was but still has it. I will redose the patient with some pain medicine. I will add a lipase being that her pain is mostly epigastric. 02/03/17 02:08 She continues to have some hypertension headache. Being that she symptomatically the hypertension we will treat hypertension see if this improves. Seems be related to the contrast and CT scan being that her symptoms of hypertension headache started immediately after the CT scan was performed. She otherwise neurologically is intact and looks well. - Vital Signs Vital signs: Temp Pulse Resp BP Pulse Ox 98.1 F 61 18 130/81 H 99 02/02/17 20:28 02/03/17 03:23 02/03/17 04:01 02/03/17 04:01 02/03/17 04:01 - Laboratory Result Diagrams: 02/02/17 23:20 02/02/17 23:20 Laboratory results interpreted by me: 02/02/17 02/02/17 23:20 23:20 MCV 79 L MCH 26.8 L RDW 18.8 H Creatinine 0.46 L Calcium 10.8 H Total Bilirubin 1.5 H Total Protein 9.0 H Albumin 5.2 H - EKG Interpretation by Me Additional EKG results interpreted by me: 02/02/17 23:19 EKG is reviewed and interpreted by me. EKG shows normal sinus rhythm with rate of [address] segment elevation or depression. No ischemic T wave inversions. IA interval, QRS duration, QTC intervals are within normal range. No old EKG available for comparison. - Transfer of Care Notes: 02/03/17 04:07 Patient's blood pressure was elevated after the CT scan. Seemed to be in effect the scanning contrast being that her blood pressure was completely normal just prior to the scan and went up immediately after the scan. Patient' s blood pressures now normalized. She looks and feels well. Her pain is gone. I feel she is safe to be discharged home. I do not find any life-threatening causes of her chest pain at this time. I was initially concerned of possible dissection being that the pain was anterior and reading to her back and was severe. CTA of the chest abdomen pelvis was negative. Patient's laboratory evaluation is unremarkable. She's encouraged to follow closely with her doctor. She's encouraged to return to ER shows worsening pain, difficulty breathing, or feels unwell. Patient agrees with plan and will be discharged home. Dictation of this chart was performed using voice recognition software; therefore, there may be some unintended grammatical errors. Discharge - Discharge Clinical Impression: Chest pain Qualifiers: Chest pain type: unspecified Qualified Code(s): R07.9 - Chest pain, unspecified Condition: Good Disposition: HOME, SELF-CARE Additional Instructions: CHEST PAIN OF UNCLEAR CAUSE: The exact cause of your chest pain isn't clear. Fortunately, there is no evidence of a dangerous medical condition. Further testing may be required to find the source of the pain. Most often, we find that this pain is coming from the chest wall -- the muscles or rib joints in the chest. But chest pain can come from the lung and lung lining, the esophagus, the heart valves or heart lining, and even the stomach or gallbladder. Rest. Eat lightly until the pain is gone. We may prescribe medicine for pain and inflammation. You should call the physician immediately if the pain radiates to the shoulder, jaw or arms; if you start to run a fever or develop a cough; or if you develop shortness of breath, or other new or alarming symptoms. NORMAL EXAM AND WORKUP: At this time, your examination and workup show no significant abnormality. No significant abnormal physical findings were noted. All laboratory, EKG, and imaging (x-ray, CT scan) studies that were ordered show no significant abnormality. Although your examination and all studies that were ordered showed no significant abnormal finding, there are no examinations and no studies that are 100% accurate. There is always the possibility that some abnormality could exist and not be detected with physical examination or within the limits and capabilities of laboratory and other studies. You should return or follow up as you were instructed on your visit today for further evaluation if your symptoms do not resolve. FOLLOW-UP CARE: If you have been referred to a physician for follow-up care, call the physician s office for an appointment as you were instructed or within the next two days. If you experience worsening or a significant change in your symptoms, notify the physician immediately or return to the Emergency Department at any time for re-evaluation. Please follow up closely with your primary care doctor for reevaluation. If you continue to have some recurrent anxiety or stress it would be good to talk to him about this as he may be able place you an a medication to help prevent these episodes. Please return to the ER immediately if you have worsening pain , difficulty breathing, or feel unwell.
[2017-02-02] MEDS ORDERED: FENTANYL CITRATE INJ/PF 100 MCG/2 ML AMPUL IV ONE (23:29)
[2017-02-02] MEDS ORDERED: ONDANSETRON HCL INJ/PF 4 MG/2 ML SDV IV ONE (23:33)
[2017-02-02] MEDS ORDERED: LORAZEPAM INJ 2 MG/1 ML VIAL IV ONE (23:34)
[2017-02-02 23:58] LABS: TROPONIN I 0.019 ng/mL
[2017-02-02 23:59] LABS: CREATINE KINASE MB < 0.22 ng/mL (<4.55)
[2017-02-03 00:02] LABS: ABSOLUTE EOSINOPHILS # (AUTO) 0.1 10^3/uL (0.0-0.6); ABSOLUTE LYMPHOCYTES (AUTO) 2.5 10^3/uL (0.5-4.7); ABSOLUTE MONOCYTES (AUTO) 0.5 10^3/uL (0.1-1.4); ABSOLUTE NEUT (AUTO) 4.5 10^3/uL (1.7-8.2); BASOPHILS % (AUTO) 0.4 % (0-2); EOSINOPHILS % (AUTO) 0.7 % (0-6); HEMATOCRIT 41.7 % (36.0-47.0); HEMOGLOBIN 14.1 g/dL (12.0-15.5); HGB HCT DIFFERENCE 0.6; LYMPHOCYTES % (AUTO) 33.3 % (13-45); MEAN CORPUSCULAR HEMOGLOBIN 26.8 pg (27.0-33.4); MEAN CORPUSCULAR HGB CONC 33.8 g/dL (32.0-36.0); MEAN CORPUSCULAR VOLUME 79 fl (80-97); MONOCYTES % (AUTO) 6.5 % (3-13); RED BLOOD COUNT 5.26 10^6/uL (3.72-5.28); RED CELL DISTRIBUTION WIDTH 18.8 % (11.5-14.0); SEGMENTED NEUTROPHILS % (AUTO) 59.1 % (42-78); WHITE BLOOD COUNT 7.6 10^3/uL (4.0-10.5)
[2017-02-03 00:11] LABS: ALANINE AMINOTRANSFERASE 40 U/L (9-52); ALBUMIN 5.2 g/dL (3.5-5.0); ALKALINE PHOSPHATASE 77 U/L (38-126); ANION GAP 15 (5-19); ASPARTATE AMINO TRANSFERASE 32 U/L (14-36); BILIRUBIN,TOTAL 1.5 mg/dL (0.2-1.3); BLOOD UREA NITROGEN 13 mg/dL (7-20); CALCIUM 10.8 mg/dL (8.4-10.2); CARBON DIOXIDE 26 mmol/L (22-30); CHLORIDE 103 mmol/L (98-107); CREATININE RESULT 0.46 mg/dL (0.52-1.25); GLUCOSE 97 mg/dL (75-110); POTASSIUM 4.3 mmol/L (3.6-5.0); SODIUM 143.7 mmol/L (137-145)
[2017-02-03] MEDS ORDERED: MORPHINE SULFATE 10 MG/ML INJ IV ONE (00:32)
[2017-02-03] MEDS ORDERED: FAMOTIDINE INJ/PF 20 MG/2 ML SDV IV ONE (00:35)
[2017-02-03] MEDS ORDERED: NORMAL SALINE 1000 ML 1,000 ML IV ONE (02:06)
[2017-02-03] MEDS ORDERED: HYDRALAZINE HCL INJ/PF 20 MG/1 ML SDV IV ONE (02:07)
[2017-02-03 04:03] VITALS: BP 130/81
--- NOTE | 2017-02-03 10:51 | EKG REPORT ---
SEVERITY:- ABNORMAL ECG - SINUS RHYTHM PROBABLE LEFT VENTRICULAR HYPERTROPHY : Confirmed by: Karma Torres 03-Feb-2017 10:49:29
== END 2017-02-03 04:30 | disposition home or self-care (01) ==
LOC: ER 19:34
DX: R07.9 Chest pain, unspecified (principal); R10.13 Epigastric pain; I10 Essential (primary) hypertension; R51 Headache
CPT/HCPCS: 93005; 99285; 96361; 96374; 96375; 36415; 82553; 83690; 84703; 85025; 80053; 84484; 71020; 71275; 74177; 93010; J3010; J0360; J2270; J2060; J2405; J7030; S0028

== ENCOUNTER 2017-05-08 13:19 | Emergency (ER) | payer MEDICAID ==
[2017-05-08 13:31] VITALS: BP 137/81
[2017-05-08] MEDS ORDERED: PENICILLIN V POTASSIUM 500 MG TABLET PO ONE (14:21)
[2017-05-08] MEDS ORDERED: BENZONATATE 100 MG CAPSULE PO ONE (14:21)
--- NOTE | 2017-05-08 14:24 | ER Document Report ---
ED Oral Problem - General Chief Complaint: Toothache Stated Complaint: TOOTHACHE Time Seen by Provider: 05/08/17 14:08 Mode of Arrival: Ambulatory Information source: Patient Notes: 27 yo female presents to ed for complaints of pain to right lower jaw TRAVEL OUTSIDE OF THE [place] IN LAST 30 DAYS: No - HPI Patient complains to provider of: Toothache Onset: Other - 2 weeks Onset: Gradual Quality of pain: Sharp, Throbbing Severity: Severe Pain Level: 5 Associated symptoms: Toothache Worsened by: Cold Similar symptoms previously: Yes Recently seen / treated by doctor/dentist: No - Related Data Allergies/Adverse Reactions: No Known Allergies Allergy (Verified 05/08/17 13:29) Past Medical History - General Information source: Patient - Social History Smoking Status: Never Smoker Cigarette use (# per day): No Chew tobacco use (# tins/day): No Smoking Education Provided: No Frequency of alcohol use: None Drug Abuse: None Occupation: [employer] Lives with: Family - children Family History: Hypertension. denies: None, Reviewed & Not Pertinent, Arthritis , CAD, COPD, CVA, DM, Hyperlipidemia, Malignancy, Thyroid Disfunction, Other Patient has suicidal ideation: No Patient has homicidal ideation: No - Past Medical History Cardiac Medical History: Reports: None Pulmonary Medical History: Reports: None EENT Medical History: Reports: None Neurological Medical History: Reports: None Endocrine Medical History: Reports: None Renal/ Medical History: Reports: None Malignancy Medical History: Reports: None GI Medical History: Reports: None Musculoskeltal Medical History: Reports None Skin Medical History: Reports None Psychiatric Medical History: Reports: Hx Anxiety Traumatic Medical History: Reports: None Infectious Medical History: Reports: None - Immunizations Hx Diphtheria, Pertussis, Tetanus Vaccination: Yes Review of Systems - Review of Systems Constitutional: No symptoms reported EENT: Dental problem Cardiovascular: No symptoms reported Respiratory: No symptoms reported Gastrointestinal: No symptoms reported Genitourinary: No symptoms reported Female Genitourinary: No symptoms reported Musculoskeletal: No symptoms reported Skin: No symptoms reported Hematologic/Lymphatic: No symptoms reported Neurological/Psychological: No symptoms reported Physical Exam - Vital signs Vitals: Temp Pulse Resp BP Pulse Ox 98.2 F 72 16 137/81 H 97 05/08/17 13:29 05/08/17 13:29 05/08/17 13:29 05/08/17 13:29 05/08/17 13:29 Interpretation: Normal - General General appearance: Appears well, Alert - HEENT Head: Normocephalic, Atraumatic Eyes: Normal Pupils: PERRL Ears: Normal External canal: Normal Tympanic membrane: Normal Sinus: Normal Nasal: Normal Mouth/Lips: Caries Teeth diagram: 1 - dental cavity with mild swelling to gums Pharynx: Normal Neck: Normal - Respiratory Respiratory status: No respiratory distress Chest status: Nontender Breath sounds: Normal Chest palpation: Normal - Cardiovascular Rhythm: Regular Heart sounds: Normal auscultation Murmur: No - Abdominal Inspection: Normal Distension: No distension Bowel sounds: Normal Tenderness: Nontender Organomegaly: No organomegaly - Back Back: Normal, Nontender - Extremities General upper extremity: Normal inspection, Nontender, Normal color, Normal ROM , Normal temperature General lower extremity: Normal inspection, Nontender, Normal color, Normal ROM , Normal temperature, Normal weight bearing. No: Navarro's sign - Neurological Neuro grossly intact: Yes Cognition: Normal Orientation: AAOx4 [place] Coma Scale Eye Opening: Spontaneous [place] Coma Scale Verbal: Oriented [place] Coma Scale Motor: Obeys Commands [place] Coma Scale Total: 15 Speech: Normal Motor strength normal: LUE, RUE, LLE, RLE Sensory: Normal - Psychological Associated symptoms: Normal affect, Normal mood - Skin Skin Temperature: Warm Skin Moisture: Dry Skin Color: Normal Course - Vital Signs Vital signs: Temp Pulse Resp BP Pulse Ox 98.2 F 72 16 137/81 H 97 05/08/17 13:29 05/08/17 13:29 05/08/17 13:29 05/08/17 13:29 05/08/17 13:29 Discharge - Discharge Clinical Impression: Pain due to dental caries Condition: Stable Disposition: HOME, SELF-CARE Additional Instructions: TOOTHACHE: Your pain is due to dental decay. The tooth must be repaired in order for you to feel better. You will, therefore, be referred to a dentist. We do not have dentists on the staff at [facility]. Severe swelling or drainage around a tooth usually means a dental abscess. This also requires evaluation and treatment by the dentist, but antibiotics may be prescribed while awaiting dental treatment. You should be rechecked immediately if you develop major swelling of the face, increasing pain, a lump in the jaw or gums, headache, difficulty swallowing, or fever. ORAL NARCOTIC MEDICATION: You have been given a prescription for pain control. This medication is a narcotic. It's best taken with food, as nausea can result if taken on an empty stomach. Don't operate machinery or drive within six hours of taking this medication. Do not combine this medicine with alcohol, or with any medication which can cause sedation (such as cold tablets or sleeping pills) unless you get permission from the physician. Narcotics tend to cause constipation. If possible, drink plenty of fluids and eat a diet high in fiber and fruits. Please be aware that prescription narcotics also have the potential for abuse. People become addicted to these medications because of the general sense of wellbeing that they induce. This feeling along with a significant reduction in tension, anxiety, and aggression provides a stimulating seductive quality to these drugs. Once your pain is under control, we encourage you to discard your unused narcotics. PENICILLIN V K: You have been given a prescription for Penicillin VK. Your physician has determined that this is the best antibiotic for your condition. Pen VK can be taken with meals, however more of the antibiotic gets into the bloodstream if it's taken on an empty stomach. Penicillin usually has no side effects. However, allergy to penicillins is common. If you have had an allergic reaction to any drug of the penicillin family, you should never take any other penicillin. Notify your doctor at once if you develop hives, itching, swelling, faintness, or shortness of breath. Tessalon Perles You have received a prescription for Tessalon Perles (benzonatate). This is a non-narcotic medicine for relief of cough. It usually works in about 15- 20 minutes and lasts around four hours. Tessalon Perles should be swallowed. They should not be chewed or dissolved in the mouth (this can produce temporary numbing of the mouth and choking can occur). If you develop any adverse effects such as wheezing, shortness of breath, hives, rash, itching, or lightheadedness, please return at once. FOLLOW-UP CARE: You have been referred for follow-up care to the dentists listed below. Call the dentists office for an appointment as you were instructed or within the next two days. If you experience worsening or a significant change in your symptoms, notify the physician immediately or return to the Emergency Department at any time for re-evaluation. [facility] [address] [place], [place] Greg mornings, by appointment [facility] [address] [place] [address] [facility], [facility] [place] [address] [facility] [address] [facility] ([facility] [address] [email or web address] [address] [place] [address] Sunday- 8:00am to 5:00 pm Will see patients from other [facility]. Charges based on income and family size and accepts Medicare, Medicaid, and Insurances Will pull molars [facility] [id number] Hours of Operation 8:00 am - 4:30 pm weekdays The following dental offices accept Medicaid: [facility] Dr. Gibbons Dr. Kunz Dr. Hargrove Dr. Renae Gonzalo Martinez [place], and [place] oral surgery Dr. Natarajan ([place]) Dr. Faria (Justina Sam) [facility] Drs. Mendosa and Fco ([place]) Dr. De La Cruz ([place]) [facility] Dr. Babcock ([place]) Drs. [place] and ([place]) Medicaid Care Line Prescriptions: Hydrocodone/Acetaminophen [[place] 5-325 mg Tablet] 1 tab PO Q6HP PRN #14 tablet PRN Reason: Benzonatate [Tessalon Perle 100 mg Capsule] 100 mg PO Q8HP PRN #20 cap PRN Reason: Penicillin V Potassium [Penicillin Vk 500 mg Tablet] 500 mg PO BID #20 tablet Forms: Elevated Blood Pressure
== END 2017-05-08 14:40 | disposition home or self-care (01) ==
LOC: ER 13:19
DX: K02.9 Dental caries, unspecified (principal); R68.84 Jaw pain
CPT/HCPCS: 99282; J3490 ×2